=== PATIENT | male | born 1940 | race Hispanic/Latino ===

== ENCOUNTER 2020-03-08 06:09 | Day surgery (SDC) | payer OTHER ==
[2020-03-04 12:26] LABS: Absolute Lymphocytes (CBC) 1.5 K/uL (0.7-4.9); Basophils % 0.5 % (0-1.3); Hematocrit 35.6 % (39.6-49.0); Lymphocytes % 17.9 % (15.3-44.8); MPV 8.6 fL (7.6-11.3)
--- NOTE | 2020-03-04 12:28 | RAD REPORT ---
EXAM DESCRIPTION: RAD - Chest Pa And Lat (2 Views) - 03/04/2020 12:18 pm CLINICAL HISTORY: pre op Chest pain. COMPARISON: Chest Single View dated 12/25/2016; CHEST PA AND LAT 2 VIEW dated 07/03/2011; CHEST PA AND L AT 2 VIEW dated 01/01/2006 FINDINGS: The lungs are clear. The heart is mildly enlarged in size. No displaced fractures.
[2020-03-04 12:36] LABS: Protime INR 1.02
[2020-03-04 12:38] LABS: Potassium 3.3 mmol/L (3.5-5.1)
--- NOTE | 2020-03-06 11:15 | EKG ---
Test Date: 2020-03-04 Test Time: 11:55:26 Centrifuge Separator Tender: DENA MEASUREMENT RESULTS: Intervals: Rate: 63 MT: 194 QRSD: 150 QT: 504 QTc: 515 Iola: P: 63 MT: 194 QRS: 74 T: 51 INTERPRETIVE STATEMENTS: Sinus rhythm with frequent and consecutive premature ventricular complexes Left bundle branch block Abnormal ECG Compared to ECG 12/25/2016 08:53:06 Ventricular premature complex(es) now present Atrial premature complex(es) no longer present Electronically Signed On 03-06-20 11:13:44 CDT by Compa Dan
--- OUTSIDE RECORDS SUMMARY | 2020-03-08 06:22 | XMS REPORT | Continuity of Care Document ---
:1940 Author Organization [facility] t Address [address] [place] [address] Care Team Providers Name Role Phone SUNIL Attending Clinician Unavailable SUNIL Admitting Clinician Unavailable Problems Condition Condition Condition Status Onset Resolution Last Treating Co mments Source Name Details Category Date Date Treatment Clinician Date Stroke Stroke Disease Active [facility] [place] Carotid Carotid Disease Active [facility] artery artery 12-28[facility] - disease disease 00:00: [facility] Pre-diabet Pre-diabet Disease Active [facility] es 12[facility]28 - 00[facility] [place] Hypothyroi Hypothyroi Disease Active [facility] d d 12-28 - 00:00: Medical 00 Center Hypertensi Hypertensi Disease Active [facility] on on 12-[facility] - 00:[facility]: [facility] [place] Dyslipidem Dyslipidem Disease Active [facility] ia ia 12-[facility] - [facility] Right Right Disease Active [facility] sided sided 12-25 - weakness weakness 00:00: Medica l 00 Center TIA TIA Disease Active [facility] (transient (transient 12-25 Kristina kes - ischemic ischemic 00:00: Medica l attack) attack) 00 Center Cerebrovas Cerebrovas Disease Active [facility] cular cular 12-25 [facility] - accident accident 00:00: Medica l (CVA) due (CVA) due 00 Cent er to to thrombosis thrombosis of left of left carotid carotid artery artery Mixed Mixed Diagnosis Active [facility] hyperlipid hyperlipid Kristina kes - emia emia Memoria l Outpati ent Clinics HTN, goal HTN, goal Diagnosis Active [facility] below below [facility] Carotid Carotid Diagnosis Active [facility] occlusion, occlusion, Kristina kes - bilateral bilateral Bong nick l [facility] ent Clinics Acquired Acquired Diagnosis Active [facility] hypothyroi hypothyroi Kristina kes - dism dism [facility] ent Clinics History of History of Diagnosis Active [facility] CVA CVA [facility] - (cerebrova (cerebrova Me moria scular scular l accident) accident) Outp ati without without ent residual residual Clinic s deficits deficits Coronary Coronary Diagnosis Active [facility] artery artery [facility] - disease disease [facility] involving involving [place] [facility] coronary coronary ent artery of artery of Clin ics [place] heart heart without without angina angina pectoris pectoris Asymptomat Asymptomat Problem Active [facility] ic ic [facility] - hypertensi hypertensi Me moria ve urgency ve urgency l [facility] ent Clinics Body mass Body mass Diagnosis Active [facility] index index [facility] - (BMI) (BMI) Memoria 34.0-34.9, 34.0-34.9, l adult adult [facility] ent Clinics Iron Iron Diagnosis Active [facility] deficiency deficiency Kristina kes - anemia, anemia, Memoria unspecifie unspecifie l d iron d iron [facility] deficiency deficiency en t anemia anemia Clinics type type Other Other Diagnosis Active [facility] obesity obesity [facility] - due to due to Memoria excess excess l calories calories Outpat i ent Clinics Noncomplia Noncomplia Diagnosis Active [facility] nce nce [facility] - w/medicati w/medicati Me moria on on l treatment treatment Outp ati due to due to ent intermit intermit Clinic s use of use of medication medication Allergies, Adverse Reactions, Alerts This patient has no known allergies or adverse reactions. Social History Social Habit Start Date Stop Date Quantity Comments Source Sex Assigned At [facility] Ace[facility] andres - [facility] Tobacco use and 2016-12-25 2016-12-25 Never used KALLIE Carbajal - exposure 00:00:00 00:00:00 Medical Center Alcohol intake 2016-12-25 2016-12-25 Current drinker KALLIE Barbosa - 00:00:00 00:00:00 of alcohol [facility] Alcohol Comment 2016-12-25 2016-12-25 one beer every [facility] - [facility]:00 00:00:00 other weekend Medical Jaylene ter Smoking Status Start Date Stop Date Source Never sm[facility] Medications Ordered Filled Start Stop Current Ordering Indication Dosage Frequency Signature Comments Components Source Medication Medication Date Date Medication? Clinician (SIG) Name Name Levothyroxi Levothyroxi Yes Manuel [address] [facility] ne Sodium ne Sodium 01-26 [place] in the Kristina kes - 00:00: morning on an empty l stomach [facility] clopidogrel Yes 75mg QD Take [address] [address] (PLAVIX) 75 804 by mouth Luke s - mg tablet 18:00: daily. Medica l [place] amLODIPine Yes hypertensio 10mg QD Take [address] [address] (NORVASC) 8-04 n by mouth [facility] - 10 MG 18:00: daily. Medical tablet [place] atorvastati Yes hyperlipide 40mg QD Take [address] [facility] n (LIPITOR) 8-04 lizeth by mouth Luke s - 40 MG 18:00: daily. Medical tablet [place] lisinopril Yes hypertensio 40mg QD Take [address] (PRINIVIL,Z 8-04 n by mouth Luke s - ESTRIL) 40 18:00: daily. Medic al MG tablet [place] Valsartan Valsartan Yes Manuel [address] [facility] [address] [place] [facility] - [facility] Clopidogrel Clopidogrel Yes Manuel [address] [facility] [address] Bisulfate Bisulfate [place] [facility] - [facility] Atorvastati Atorvastati Yes Manuel [address] [facility] n Calcium n Calcium [place] Luke [facility] - [facility] Metoprolol Metoprolol Yes Manuel [address] [address] Succinate Succinate [place] Luke s - ER ER [facility]oria [facility] Amlodipine Amlodipine Yes Manuel [address] [facility] [address] Besylate Besylate [place] [facility] - [facility] - Yes Manuel [address] [place] [facility] - [facility] Amlodipine Amlodipine Yes Manuel [address] [facility] Besylate Besylate [place] [facility] - [facility] Hydrochloro Hydrochloro Yes Manuel [address] [facility] thiazide thiazide [place] in the Luke s - morning [facility] Losartan Losartan Yes Manuel [address] Potassium Potassium Pel[place]o [facility]y s [facility] Immunizations Ordered Filled Immunization Date Status Comments Sourc e Immunization Name Name Yaya Javier 2018-07-[address] [facility] - 00:[facility]00 [facility] Procedures This patient has no known procedures. Encounters Start End Encounter Admission Attending Care Care Encounter Source Date/Time Date/Time Type Type Clinicians Facility Department ID 2020-01-27 2020-01-27 [facility] [id number] [facility] [address] 08:40[facility]00 08:40:00 t Ule s - Drive [facility] Medicine l Medicine Outpati ent Clinics 2019-10-27 2019-10-27 [facility] [id number] [address] 16:00:00 16:00:00 [employer] [facility] Medicine l Medicine Outpati ent Clinics 2019-10-27 2019-10-27 [facility] [id number] 08:15:00 08:15:00 t Ule s - [employer] [facility] Family Medicine l Medicine Outpati ent Clinics 2019-07-27 2019-07-27 [facility] [id number] 08:45:00 08:45:00 t [employer] [facility] Medicine l Medicine Outpati ent Clinics 2019-04-09 2019-04-09 [facility] [id number] 09:30:00 09:30:00 [employer] [facility] Medicine l Medicine Outpati ent Clinics 2018-12-08 2018-12-08 [facility] [id number] 09:30:00 09:30:00 t Ule [employer] [facility] Medicine l Medicine Outpati ent Clinics 2018-07-28 2018-07-28 [facility] [id number] 09:45:00 09:45:00 t [employer] [facility] Medicine Medicine Outpati ent Clinics Results Test Description Test Time Test Comments Results Result Comments Source HEMOGLOBIN A1C 2016-12-27 21:46:00 Test Item Value Reference Range Interpretation Comme nts HEMOGLOBIN A1C (BEAKER) (test code = 368) 7.2 % 4.3-6.1 H T4, [id number] 13:56:00 Test Item Value Reference Range Interpretation Comments FREE T4 (BEAKER) (test code = 655) 0.77 ng/dL 0.70-1.48 TSH/FREE T4 IF [id number] 07:57:00 Test Item Value Reference Range Interpretation Comments THYROID STIMULATING HORMONE 7.16 uIU/mL 0.35-4.94 H (BEAKER) (test code = 772) CBC W/PLT COUNT & AUTO [id number] 07:33:00 Test Item Value Reference Range Interpretation Comments WHITE BLOOD CELL COUNT (BEAKER) 6.5 K/ L 3.5-10.5 (test code = 775) RED BLOOD CELL COUNT (BEAKER) 5.15 M/ L 4.63-6.08 (test code = 761) HEMOGLOBIN (BEAKER) (test code = 14.1 GM/DL 13.7-17.5 410) HEMATOCRIT (BEAKER) (test code = 43.1 % 40.1-51.0 411) MEAN CORPUSCULAR VOLUME (BEAKER) 83.7 fL 79.0-92.2 (test code = 753) MEAN CORPUSCULAR HEMOGLOBIN 27.4 pg 25.7-32.2 (BEAKER) (test code = 751) MEAN CORPUSCULAR HEMOGLOBIN CONC 32.7 GM/DL 32.3-36.5 (BEAKER) (test code = 752) RED CELL DISTRIBUTION WIDTH 14.8 % 11.6-14.4 H (BEAKER) (test code = 412) PLATELET COUNT (BEAKER) (test 250 K/CU MM 150-450 code = 756) MEAN PLATELET VOLUME (BEAKER) 10.8 fL 9.4-12.4 (test code = 754) NUCLEATED RED BLOOD CELLS 0 /100 WBC 0-0 (BEAKER) (test code = 413) NEUTROPHILS RELATIVE PERCENT 59 % (BEAKER) (test code = 429) LYMPHOCYTES RELATIVE PERCENT 23 % (BEAKER) (test code = 430) MONOCYTES RELATIVE PERCENT 12 % (BEAKER) (test code = 431) EOSINOPHILS RELATIVE PERCENT 4 % (BEAKER) (test code = 432) BASOPHILS RELATIVE PERCENT 1 % (BEAKER) (test code = 437) NEUTROPHILS ABSOLUTE COUNT 3.85 K/ L 1.78-5.38 (BEAKER) (test code = 670) LYMPHOCYTES ABSOLUTE COUNT 1.52 K/ L 1.32-3.57 (BEAKER) (test code = 414) MONOCYTES ABSOLUTE COUNT (BEAKER) 0.80 K/ L 0.30-0.82 (test code = 415) EOSINOPHILS ABSOLUTE COUNT 0.26 K/ L 0.04-0.54 (BEAKER) (test code = 416) BASOPHILS ABSOLUTE COUNT (BEAKER) 0.04 K/ L 0.01-0.08 (test code = 417) IMMATURE GRANULOCYTES-RELATIVE 0 % 0-1 PERCENT (BEAKER) (test code = 2801) BASIC METABOLIC [id number] 07:28:00 Test Item Value Reference Range Interpretation Comments SODIUM (BEAKER) 140 meq/L 136-145 (test code = 381) POTASSIUM (BEAKER) 3.7 meq/L 3.5-5.1 (test code = 379) CHLORIDE (BEAKER) 106 meq/L 98-107 (test code = 382) CO2 (BEAKER) (test 25 meq/L 22-29 code = 355) BLOOD UREA NITROGEN 11 mg/dL 7-21 (BEAKER) (test code = 354) CREATININE (BEAKER) 0.76 mg/dL 0.57-1.25 (test code = 358) GLUCOSE RANDOM 118 mg/dL 70-105 H (BEAKER) (test code = 652) CALCIUM (BEAKER) 8.9 mg/dL 8.4-10.2 (test code = 697) EGFR (BEAKER) (test mL/min/1.73 INSUFFIC IENT CLINICAL code = 1092) sq m DATA TO CALCULA TE ESTIMATED GFR. [id number] 07:19:00 Test Item Value Reference Range Interpretation Comments PHOSPHORUS (BEAKER) (test code = 2.4 mg/dL 2.3-4.7 604) [id number] 07:19:00 Test Item Value Reference Range Interpretation Comments MAGNESIUM (BEAKER) (test code = 2.1 mg/dL 1.6-2.6 627) LIPID [id number] 07:19:00 Test Item Value Reference Range Interpretation Comments TRIGLYCERIDES (BEAKER) (test code = 173 mg/dL 540) CHOLESTEROL (BEAKER) (test code = 115 mg/dL 631) HDL CHOLESTEROL (BEAKER) (test code 35 mg/dL = 976) LDL CHOLESTEROL CALCULATED (BEAKER) 45 mg/dL (test code = 633) Triglyceride Reference Range: Low Risk <150 Borderline 150-199 High Risk 200-499 Very High Risk >=500Cholesterol Reference Range: Low Risk <200 Borderline 200-239 High Risk >240HDL Cholesterol Reference Range: Low Risk >=60 High Risk <40LDL Cholesterol Reference Range: Optimal <100 Near Optimal 100-129 Borderline 130-159 High 160-189 Very High >=190CALCIUM, [id number] 06:36:00 Test Item Value Reference Range Interpretation Comments CALCIUM IONIZED (BEAKER) (test 1.02 mmol/L 1.12-1.27 L code = 698) PH, BLOOD (BEAKER) (test code = 7.43 1810) CREATINE KINASE (CK), TOTAL AND [id number] 00:37:00 Test Item Value Reference Range Interpretation Comments CREATINE KINASE TOTAL (BEAKER) 180 U/L 29-200 (test code = 380) CREATINE KINASE-MB (BEAKER) (test 1.9 ng/mL 0.0-6.6 code = 750) CREATINE KINASE-MB INDEX (BEAKER) 1.1 % (test code = 395) Effective 04/13/2014: CK-MB Reference Range ChangeNew: 0.0-6.6 Previous: 0.0-4.9CK-MB Reference Range:<6.7 Normal6.7-10.0 Borderline>10.0 AbnormalCREATINE KINASE (CK), TOTAL AND [id number] 15:57:00 Test Item Value Reference Range Interpretation Comments CREATINE KINASE TOTAL (BEAKER) 183 U/L 29-200 (test code = 380) CREATINE KINASE-MB (BEAKER) (test 2.0 ng/mL 0.0-6.6 code = 750) CREATINE KINASE-MB INDEX (BEAKER) 1.1 % (test code = 395) Effective 04/13/2014: CK-MB Reference Range ChangeNew: 0.0-6.6 Previous: 0.0-4.9CK-MB Reference Range:<6.7 Normal6.7-10.0 Borderline>10.0 Abnormal
--- OUTSIDE RECORDS SUMMARY | 2020-03-08 06:22 | XMS REPORT | Clinical Summary ---
:1940 Author Organization [facility] Address [address] [place] [address] Care Team Providers Name Role Phone Unavailable Primary Care Provider Unavailable Allergies No Known Allergies Medications Medication Sig Dispensed Refills Start Date End Date Status clopidogrel (PLAVIX) 75 Take 75 mg by 0 Active mg tablet mouth daily. amLODIPine (NORVASC) 10 Take 10 mg by 0 Active MG tabletIndications: mouth daily. hypertension atorvastatin (LIPITOR) 40 Take 40 mg by 0 Active MG tabletIndications: mouth daily. hyperlipidemia lisinopril Take 40 mg by 0 Activ e (PRINIVIL,ZESTRIL) 40 MG mouth daily. tabletIndications: hypertension Active Problems Problem Noted Date Stroke 12/28/2016 Carotid artery disease 12/28/2016 Pre-diabetes 12/28/2016 Hypothyroid 12/28/2016 Hypertension 12/25/2016 Dyslipidemia 12/25/2016 Right sided weakness 12/25/2016 TIA (transient ischemic attack) 12/25/2016 Cerebrovascular accident (CVA) due to thrombosis of le ft carotid artery 12/25/2016 Social History Tobacco Use Types Packs/Day Years Used Date Never Smoker Smokeless Tobacco: Never Used Alcohol Use Drinks/Week oz/Week Comments Yes one beer every o ther weekend Sex Assigned at Date Recorded Not on file Last Filed Vital Signs Not on file Plan of Treatment Not on file Results Not on fileafter 03/08/2019 Advance Directives For more information, please contact: [phone] Code Status Date Activated Date Inactivated Comments Full Code 12/25/2016 1:46 PM 12/28/2016 8:00 PM This code status was determined by: Patient
--- OUTSIDE RECORDS SUMMARY | 2020-03-08 06:23 | XMS REPORT ---
:1940 Author Organization [employer] Care Team Providers Name Role Phone Chris Pelayoh Provider Role Unavailable Allergies, Adverse Reactions, Alerts Substance Reaction Event Type N.K.D.A. Info Not Available Non Drug Allergy Problems Problem Type Condition Code Onset Dates Condition Statu s Problem History of CVA (cerebrovascular Z86.73 Active accident) without residual deficits Problem Coronary artery disease involving I25.10 Active alutiiq coronary artery of alutiiq heart without angina pectoris Problem Mixed hyperlipidemia E78.2 Active Problem Body mass index (BMI) 34.0-34.9, Z68.34 Active adult Assessment Noncompliance w/medication treatment Z91.14 Active due to intermit use of medication Problem Iron deficiency anemia, unspecified D50.9 Active iron deficiency anemia type Problem Other obesity due to excess calories E66.09 Active Problem HTN, goal below 140/90 I10 Activ e Problem Asymptomatic hypertensive urgency I16.0 Active Problem Subclinical hypothyroidism E03.9 A ctive Problem Carotid occlusion, bilateral I65.23 Active Assessment Iron deficiency anemia, unspecified D50.9 Active iron deficiency anemia type Assessment History of CVA (cerebrovascular Z86.73 Active accident) without residual deficits Assessment Body mass index (BMI) 34.0-34.9, Z68.34 Active adult Assessment Other obesity due to excess calories E66.09 Active Assessment Acquired hypothyroidism E03.9 Acti ve Assessment Mixed hyperlipidemia E78.2 Active Assessment Carotid occlusion, bilateral I65.23 Active Assessment HTN, goal below 140/90 I10 Activ e Assessment Coronary artery disease involving I25.10 Active alutiiq coronary artery of alutiiq heart without angina pectoris Medications Medication Code Code Instructions Start End Status Dosage System Date Date Clopidogrel Bisulfate ND 81736677367 75 MG Orally A ctive 1 tablet Once a day Atorvastatin Calcium ND 45926632902 40 MG Orally Ac tive 1 tablet Once a day Metoprolol Succinate ND 16143620104 200 MG Orally A ctive 1 tablet ER Once a day Levothyroxine Sodium ND 75185211900 25 MCG Orally Sept A ctive 1 tablet Once a day , in the 2019 morning on an empty stomach Amlodipine Besylate [facility] 21438744138 10 MG Orally Act laura 1 tablet Once a day Aspir-81 [facility] 97844451477 81 MG Orally Active 1 tabl et Once a day Amlodipine Besylate [facility] 09464183360 10 MG Orally Act laura 1 tablet Once a day Valsartan [facility] 15080558230 160 MG Orally Inactive 2 Once a day tablets Hydrochlorothiazide [facility] 83017680400 12.5 MG Orally A ctive 1 tablet Once a day in the morning Losartan Potassium [facility] 75399997688 100 MG Orally Act laura 1 tablet Once a day Results No Known Results Summary Purpose [employer]ClinicalWorks Submission
[2020-03-08] MEDS ORDERED: HEPA 1000U/500MLS 1,000 UNIT/500 ML BAG IV ONE (06:52)
[2020-03-08] MEDS ORDERED: LIDOCAINE 1% 20 ML MDV ONE (06:52)
[2020-03-08] MEDS ORDERED: NA CHLORIDE 0.9% 500 ML ONE (07:05)
[2020-03-08] MEDS ORDERED: FENTANYL CITR 100 MCG/2 ML ONE (07:43)
[2020-03-08] MEDS ORDERED: MIDAZOLAM HCL 2 MG/2 ML INJ ONE ×3 (07:43→08:01)
[2020-03-08 08:45] VITALS: TEMP 97
[2020-03-08 09:50] VITALS: BP 141/56; O2SAT 97
--- NOTE | 2020-03-10 13:23 | OP ---
Surgeon: Compa Dan MD Back Pad Inspector: Jammie Zepeda. Procedure: Selective bilateral carotid angiogram. Indication: Cerebrovascular disease with positive carotid Doppler. History Of Present Illness: Mr. Torres is an 80-year-old [place] male with history of hypertens ion, diabetes, dyslipidemia, positive carotid Doppler severe on the right side, scheduled for carotid angiogram on 03/08/2020. Description Of Procedure: He was brought to the manager labor delivery as an outpatient, prepped and draped in the routine sterile fashion, given Versed for sedation. Using the Seldinger technique, we used 10 cc of Xylocaine to numb the right groin. A 6-Kazakh sheath was introduced there successfully. Angio-Seal was used to close the case since angiography in that region was normal. A JR4 catheter was used to select the right common carotid and the left common carotid. The patient had some mild stenosis on t he left side in the external and internal carotid artery. Both common carotid arteries were normal. On the right carotid, he had a very severe ostial right ICA stenosis about 80% to 90%. The patient tolerated the procedure well. There were no complications. Anesthesia: Total conscious sedation was 30 minutes. Final Diagnoses: Severe cerebrovascular disease, severe right carotid artery stenosis, he will need a carotid endarterectomy. I will make an arrangement for that. The case was discussed with the adelfo sharma and the patient. The patient will remain bedrest in the hospital for 2 hours. He will go home and have an outpatient visit with a vascular surgeon in [place] in the near [facility]. ROBERT/VIDYA Voice ID: [id number] Report ID: [id number]
== END 2020-03-08 10:20 | disposition home or self-care (01) ==
LOC: CCL 06:09
DX: I65.23 Occlusion and stenosis of bilateral carotid arteries (principal); I10 Essential (primary) hypertension; E11.9 Type 2 diabetes mellitus without complications; E78.5 Hyperlipidemia, unspecified; Z20.828 Contact with and (suspected) exposure to other viral communicable diseases
CPT/HCPCS: 93005; 85025; 80048; 36415; 85610; 85730; 71046; 36222; U0002; C1893; C1760; J2250 ×3; J3010; J7040; J1644

== ENCOUNTER 2021-04-30 13:08 | Inpatient (IN) | payer OTHER ==
--- OUTSIDE RECORDS SUMMARY | 2021-04-30 13:12 | XMS REPORT | Continuity of Care Document ---
:1940 Author Organization [facility] t Address [facility] [address] [place] [address] Care Team Providers Name Role Phone TIFFANIE WATT Attending Clinician Unavailable SUNIL Attending Clinician Unavailable MAUREEN WATT Admitting Clinician Unavailable SUNIL Admitting Clinician Unavailable Payers Payer Name Policy Type Policy Number Effective Date Expiration Date S ele MEDICARE A B [id number] 2003 00:00:00 MEDICAID OF [place] [id number] 2016 00:00:00 Problems This patient has no known problems. Allergies, Adverse Reactions, Alerts Allergy Allergy Status Severity Reaction(s) Onset Inactive Treating Comm ents Source Name Type Date Date Clinician NO KNOWN Allergy Active [facility] ALL[facility]GIE S Medications Ordered Filled Start Stop Current Ordering Indication Dosage Frequency Signature Comments Components Source Medication Medication Date Date Medication? Clinician (SIG) Name Name Levothyroxi Levothyroxi Yes Manuel [address] [facility] ne Sodium ne Sodium 9-02 [place] in the Kristina kes - 00:00: morning on [facility] 00 an empty l stomach Outpati ent Clinics Valsartan Valsartan Yes Manuel [address] [facility] Clopidogrel Clopidogrel Yes Manuel [address] [facility] Bisulfate Bisulfate [place] Atorvastati Atorvastati Yes Manuel [address] [facility] n Calcium n Calcium [place] Metoprolol Metoprolol Yes Manuel [address] [facility] Succinate Succinate [place] [facility] ent Clinics Amlodipine Amlodipine Yes Manuel [address] [facility] Besylate Besylate [place] Clinics Aspir-81 Aspir-81 Yes Manuel [address] [place] [facility] ent [facility] Amlodipine Amlodipine Yes Manuel [address] [facility] Besylate Besylate [place] [facility] Hydrochloro Hydrochloro Yes Manuel [address] [facility] thiazide thiazide [place] [facility] Losartan Losartan Yes Manuel [address] Potassium Potassium [place] [facility] ent Clinics Immunizations Ordered Filled Immunization Date Status Comments Sour e Immunization Name Name FluAD FluAD 2018-07-[address] [facility]00 [facility] Vital Signs Vital Name Observation Time Observation Value Comments Source HEIGHT 2020-03-16 08:04:00 167.6 cm WEIGHT 2020-03-16 08:04:00 88.587 kg HEIGHT 2020-03-15 10:51:00 167.6 cm WEIGHT 2020-03-15 10:51:00 90.266 kg HEIGHT 2020-03-31 13:18:00 167.6 cm WEIGHT 2020-03-31 13:18:00 91.173 kg HEIGHT 2020-03-16 08:04:00 167.6 cm WEIGHT 2020-03-16 08:04:00 88.587 kg HEIGHT 2020-03-15 10:51:00 167.6 cm WEIGHT 2020-03-15 10:51:00 90.266 kg HEIGHT 2020-03-14 08:37:00 167.6 cm WEIGHT 2020-03-14 08:37:00 90.266 kg HEIGHT 2020-03-14 08:37:00 167.6 cm WEIGHT 2020-03-14 08:37:00 90.266 kg Procedures This patient has no known procedures. Encounters Start End Encounter Admission Attending Care Care Encounter Source Date/Time Date/Time Type Type Clinicians Facility Department ID 2021-03-01 Inpatient [facility] [id number] [facility] 10:47:23 TIFFANIE 2021-04-27 2021-04-27 ambulatory [facility] [id number] [facility] 2020-12-27 2020-12-27 Outpatient [facility] [id number] [facility] 2020-09-27 2020-09-27 Outpatient [facility] [id number] [facility] 2020-06-30 2020-06-30 Outpatient [facility] [id number] [facility] 2020-06-30 2020-06-30 Outpatient [facility] [id number] [facility] 2020-06-06 2020-06-06 Outpatient [facility] [id number] [facility] 2020-04-04 2020-04-04 Outpatient [facility] [id number] [facility] 2020-04-01 2020-04-01 Outpatient [facility] [id number] [facility] 2020-03-31 2020-03-31 Outpatient EL BRAD, [facility] [id number] [facility] 00:00:00 00:00:00 TIFFANIE 2020-03-23 2020-03-23 Outpatient [facility] [id number] [facility] 2020-03-15 2020-03-15 Outpatient EL [facility] [id number] [facility] 00:00:00 00:00:00 2020-03-14 2020-03-14 Outpatient EL BRAD, [facility] [id number] [facility] 00:00:00 00:00:00 TIFFANIE 2020-03-14 2020-03-14 Outpatient [facility], [facility] [id number] [facility] 00:00:00 00:00:00 TIFFANIE 2020-03-11 2020-03-11 Outpatient EL CAROL [facility] [id number] [facility] 00:00:00 00:00:00 [facility] 2020-01-27 2020-01-27 [facility] [id number] 08:40:00 08:40:00 [facility] 2019-10-27 2019-10-27 [facility] [id number] [facility] 16:00:00 16:00:00 [facility] 2019-10-27 2019-10-27 [facility] [id number] [facility] 08:15:00 08:15:00 t [facility] 2019-07-27 2019-07-27 [facility] [id number] [facility] 08[facility]45:00 08:45:00 t [facility] 2019-04-09 2019-04-09 [facility] [id number] [facility] 09:30:00 09:30:00 t [facility] 2018-12-08 2018-12-08 [facility] [id number] [facility] [address] 09:30:00 09:30:00 t [facility] 2018-07-28 2018-07-28 [facility] [id number] [facility] 09:45:00 09:45:00 t [facility] [employer] [facility] Results Test Description Test Time Test Comments Results Result Sour e Comments TISSUE EXAM 2020-03-21 Surgical Pathology 14:09:00 Report Case: [id number] Authorizing Provider: Tiffanie Watt MD Collected: 03/16/2020 12:32 PM Ordering Location: [facility] Received: 03/16/2020 01:28 PM PERIOPERATIVE SERVICES Pathologist: Chetan Francis MD Specimen: Plaque, Carotid Artery Plaque ARTERY, RIGHT CAROTID, ENDARTERECTOMY:CALCIFI C ATHEROSCLEROTIC PLAQUE Signing Pathologist Direct Phone Line: [phone] ally signed by Chetan Francis MD on 03/21/2020 at 2:09 [id number]; [id number] stenosis, rightCarotid artery plaqueA. Received fresh labeled with the patient's name, medical record number and "plaque" is a previously incised tubular portion of yellow-kilpatrick plaque measuring 3.5 cm in length and ranging 0.6-0.8 cm in diameter. The specimen is serially sectioned to reveal calcifications measuring up to 0.3 cm in thickness. Bariatric Physician sections are submitted in A1, following decalcification.ALLAN Jackson PA ([facility])cmPerformed POCT-GLUCOSE METER 2020-03-17 12:05:00 Test Item Value Reference Range Interpretation Comme nts POC-GLUCOSE METER (BEAKER) 135 mg/dL 70-110 H : TESTED AT [address] (test code = 1538) [place] [id number]: Flavoring Machine Operator/Techni juliano ID = [id number] for ABDIAS FAULKNER BASIC METABOLIC [id number] 07:45:00 Test Item Value Reference Range Interpretation Comments SODIUM (BEAKER) (test 140 meq/L 136-145 code = 381) POTASSIUM (BEAKER) 3.9 meq/L 3.5-5.1 (test code = 379) CHLORIDE (BEAKER) 106 meq/L 98-107 (test code = 382) CO2 (BEAKER) (test 24 meq/L 22-29 code = 355) BLOOD UREA NITROGEN 18 mg/dL 7-21 (BEAKER) (test code = 354) CREATININE (BEAKER) 0.98 mg/dL 0.57-1.25 (test code = 358) GLUCOSE RANDOM 133 mg/dL 70-105 H (BEAKER) (test code = 652) CALCIUM (BEAKER) 8.8 mg/dL 8.4-10.2 (test code = 697) EGFR (BEAKER) (test INSUFFIC IENT CLINICAL code = 1092) DATA TO CALCULA TE ESTIMATED GFR. Flavoring Machine Operator ID - AAHAMIDPOCT-GLUCOSE [id number] 07:32:00 Test Item Value Reference Range Interpretation Comments POC-GLUCOSE METER 171 mg/dL 70-110 H : TESTED A T [facility] [address] (BEAKER) (test code = [place], 1538) [address]: Flavoring Machine Operator/Techni juliano ID = [id number] for ABDIAS PENNY [id number] 13:42:00 Test Item Value Reference Range Interpretation Comments CREATININE (BEAKER) 0.99 mg/dL 0.57-1.25 (test code = 358) EGFR (BEAKER) (test INSUFFIC IENT CLINICAL code = 1092) DATA TO CALCULA TE ESTIMATED GFR. Flavoring Machine Operator ID - JESSICA [id number] 13:40:00 Test Item Value Reference Range Interpretation Comments SODIUM (BEAKER) (test code = 381) 142 meq/L 136-145 POTASSIUM (BEAKER) (test code = 3.4 meq/L 3.5-5.1 L 379) CHLORIDE (BEAKER) (test code = 382) 111 meq/L 98-107 H CO2 (BEAKER) (test code = 355) 22 meq/L 22-29 Flavoring Machine Operator ID - JESSICA CCBC (HEMOGRAM ONLY)2020-03-16 13:22:00 Test Item Value Reference Range Interpretation Comments WHITE BLOOD CELL COUNT (BEAKER) 10.5 K/ L 3.5-10.5 (test code = 775) RED BLOOD CELL COUNT (BEAKER) 3.44 M/ L 4.63-6.08 L (test code = 761) HEMOGLOBIN (BEAKER) (test code = 10.9 GM/DL 13.7-17.5 L 410) HEMATOCRIT (BEAKER) (test code = 32.4 % 40.1-51.0 L 411) MEAN CORPUSCULAR VOLUME (BEAKER) 94.2 fL 79.0-92.2 H (test code = 753) MEAN CORPUSCULAR HEMOGLOBIN 31.7 pg 25.7-32.2 (BEAKER) (test code = 751) MEAN CORPUSCULAR HEMOGLOBIN CONC 33.6 GM/DL 32.3-36.5 (BEAKER) (test code = 752) RED CELL DISTRIBUTION WIDTH 13.7 % 11.6-14.4 (BEAKER) (test code = 412) PLATELET COUNT (BEAKER) (test 227 K/CU MM 150-450 code = 756) MEAN PLATELET VOLUME (BEAKER) 10.2 fL 9.4-12.4 (test code = 754) NUCLEATED RED BLOOD CELLS 0 /100 WBC 0-0 (BEAKER) (test code = 413) POCT-GLUCOSE [id number] 08:14:00 Test Item Value Reference Range Interpretation Comments POC-GLUCOSE METER 138 mg/dL 70-110 H : TESTED A T [facility] 67[facility] ([facility] (test code [facility], = 1538) [address]: Flavoring Machine Operator/Techni juliano ID = [id number] for JORD AN, LACRYSTAL SARS-COV2/RT-PCR ([facility])2020-03-14 18:25:00 Test Item Value Reference Range Interpretation Comments SARS-COV2/RT-PCR (test Negative Not Detected, Negative, code = 4238267) See external report for linked test SARS-COV-2 PERFORMING LAB [facility] MASHA (test code = 0404860) Negative result for this test determines that SARS-CoV-2 RNA was not present in the specimen above the Limit of Detection (LOD). However, Negative results do not preclude SARS-CoV-2 infection and should not be used as the sole basis for treatment or patient management decisions. Negative results mustbe combined with clinical observations, patient history, and epidemiological information. A false negative result may occur if a specimen is improperly collected, transported or handled. A false negative result should be considered if patient's recent exposures or clinical presentation indicate that COVID-19 (SARS-CoV-2) is likely and diagnostic tests for other causes of illness are negative. Re-testing should be considered in cases of suspected false negatives.The limit of detection for this assay is 800 copies/mL.This SARS CoV-2 test is a real-time RT-PCR test intended for the qualitative detection of nucleic acid from SARS-CoV-2 in a nasopharyngeal swab specimen collected from individuals susp ected of COVID-19 by their healthcare provider.This test has not been Food and Drug Administration (FDA) cleared or approved. This is a modified version of an approved Emergency Use Authorization (EUA) and is in the process of review by the FDA. Once authorized by the FDA, the issued EUA will be effective until the declaration that circumstances exist justifying the authorization of the emergency use of in vitro diagnostic tests for detection and/or diagnosis of COVID-19 is terminated under Section 564(b)(2) of the Act or the EUA is revoked under Section 564(g) of the Act.Fact Sheet for Healthcare Providers:https://www.[employer]/sites/default/files/product/documents/Fact_Shee n_LL_Ycrdfmjtf_Tqxy_JZXR-PrY-6.pdfFact Sheet for Healthcare Patients:https://www.[employer]/sites/default/files/product/ documents/Bnyb_Xvyvu_Cimstyzp_Dfuo_IPWP-AyE-6.pdfPerforming Laboratory:[facility] [place], [place] [address]CHTXT METABOLIC PANEL 2020-03-14 12:12:00 Test Item Value Reference Range Interpretation Comments SODIUM (BEAKER) (test 138 meq/L 136-145 code = 381) POTASSIUM (BEAKER) 3.8 meq/L 3.5-5.1 (test code = 379) CHLORIDE (BEAKER) 103 meq/L 98-107 (test code = 382) CO2 (BEAKER) (test 24 meq/L 22-29 code = 355) BLOOD UREA NITROGEN 37 mg/dL 7-21 H (BEAKER) (test code = 354) CREATININE (BEAKER) 1.91 mg/dL 0.57-1.25 H (test code = 358) GLUCOSE RANDOM 118 mg/dL 70-105 H (BEAKER) (test code = 652) CALCIUM (BEAKER) 10.1 mg/dL 8.4-10.2 (test code = 697) EGFR (BEAKER) (test INSUFFIC IENT CLINICAL code = 1092) DATA TO CALCULA TE ESTIMATED GFR. Flavoring Machine Operator ID - [place] FPROTHROMBIN [id number] 12:05:00 Test Item Value Reference Range Interpretation Comments PROTIME (BEAKER) (test code = 14.0 seconds 11.9-14.2 759) INR (BEAKER) (test code = 370) 1.11 <=5.90 Effective 10/22/2018: PT Reference Range ChangeNew: 11.9-14.2 Previous: 11.7- 14.7RECOMMENDED COUMADIN/WARFARIN INR THERAPY RANGESSTANDARD DOSE: 2.0-3.0 Includes: PROPHYLAXIS for venous thrombosis, systemic embolization; TREATMENT for venous thrombosis and/or pulmonary embolus.HIGH RISK: Target INR is2.5-3.5 for patients wiht mechanical heart valves.CBC W/PLT COUNT & AUTO [id number] 11:49:00 Test Item Value Reference Range Interpretation Comments WHITE BLOOD CELL COUNT (BEAKER) 7.2 K/ L 3.5-10.5 (test code = 775) RED BLOOD CELL COUNT (BEAKER) 4.11 M/ L 4.63-6.08 L (test code = 761) HEMOGLOBIN (BEAKER) (test code = 12.9 GM/DL 13.7-17.5 L 410) HEMATOCRIT (BEAKER) (test code = 38.5 % 40.1-51.0 L 411) MEAN CORPUSCULAR VOLUME (BEAKER) 93.7 fL 79.0-92.2 H (test code = 753) MEAN CORPUSCULAR HEMOGLOBIN 31.4 pg 25.7-32.2 (BEAKER) (test code = 751) MEAN CORPUSCULAR HEMOGLOBIN CONC 33.5 GM/DL 32.3-36.5 (BEAKER) (test code = 752) RED CELL DISTRIBUTION WIDTH 14.0 % 11.6-14.4 (BEAKER) (test code = 412) PLATELET COUNT (BEAKER) (test 269 K/CU MM 150-450 code = 756) MEAN PLATELET VOLUME (BEAKER) 10.1 fL 9.4-12.4 (test code = 754) NUCLEATED RED BLOOD CELLS 0 /100 WBC 0-0 (BEAKER) (test code = 413) NEUTROPHILS RELATIVE PERCENT 66 % (BEAKER) (test code = 429) LYMPHOCYTES RELATIVE PERCENT 18 % (BEAKER) (test code = 430) MONOCYTES RELATIVE PERCENT 14 % (BEAKER) (test code = 431) EOSINOPHILS RELATIVE PERCENT 2 % (BEAKER) (test code = 432) BASOPHILS RELATIVE PERCENT 0 % (BEAKER) (test code = 437) NEUTROPHILS ABSOLUTE COUNT 4.72 K/ L 1.78-5.38 (BEAKER) (test code = 670) LYMPHOCYTES ABSOLUTE COUNT 1.27 K/ L 1.32-3.57 L (BEAKER) (test code = 414) MONOCYTES ABSOLUTE COUNT (BEAKER) 1.00 K/ L 0.30-0.82 H (test code = 415) EOSINOPHILS ABSOLUTE COUNT 0.16 K/ L 0.04-0.54 (BEAKER) (test code = 416) BASOPHILS ABSOLUTE COUNT (BEAKER) 0.01 K/ L 0.01-0.08 (test code = 417) IMMATURE GRANULOCYTES-RELATIVE 0 % 0-1 PERCENT (BEAKER) (test code = 2801) HEMOGLOBIN [id number] 21:46:00 Test Item Value Reference Range Interpretation Comments HEMOGLOBIN A1C (BEAKER) (test code = 7.2 % 4.3-6.1 H 368) T4, [id number] 13:56:00 Test Item Value Reference Range Interpretation Comments FREE T4 (BEAKER) (test code = 655) 0.77 ng/dL 0.70-1.48 TSH/FREE T4 IF [id number] 07:57:00 Test Item Value Reference Range Interpretation Comments THYROID STIMULATING HORMONE 7.16 uIU/mL 0.35-4.94 H (BEAKER) (test code = 772) CBC W/PLT COUNT & AUTO [id number] 07:33:00 Test Item Value Reference Range Interpretation [...] (BEAKER) (test code = 2801) BASIC METABOLIC [id number] 07:28:00 Test Item Value Reference Range Interpretation [...] m DATA TO CALCULA TE ESTIMATED GFR. [id number] 07:19:00 Test Item Value Reference Range Interpretation Comments PHOSPHORUS (BEAKER) (test code = 2.4 mg/dL 2.3-4.7 604) [id number] 07:19:00 Test Item Value Reference Range Interpretation Comments MAGNESIUM (BEAKER) (test code = 2.1 mg/dL 1.6-2.6 627) LIPID [id number] 07:19:00 Test Item Value Reference Range Interpretation [...] Borderline 130-159 High 160-189 Very High >=190CALCIUM, [id number] 06:36:00 Test Item Value Reference Range Interpretation Comments CALCIUM IONIZED (BEAKER) (test 1.02 mmol/L 1.12-1.27 L code = 698) PH, BLOOD (BEAKER) (test code = 7.43 1810) CREATINE KINASE (CK), TOTAL AND [id number] 00:37:00 Test Item Value Reference Range Interpretation Comments CREATINE KINASE TOTAL (BEAKER) 180 U/L 29-200 (test code = 380) CREATINE KINASE-MB (BEAKER) (test 1.9 ng/mL 0.0-6.6 code = 750) CREATINE KINASE-MB INDEX (BEAKER) 1.1 % (test code = 395) Effective 04/13/2014: CK-MB Reference Range ChangeNew: 0.0-6.6 Previous: 0.0-4.9CK-MB Reference Range:<6.7 Normal6.7-10.0 Borderline>10.0 AbnormalCREATINE KINASE (CK), TOTAL AND [id number] 15:57:00 Test Item Value Reference Range Interpretation Comments CREATINE KINASE TOTAL (BEAKER) 183 U/L 29-200 (test code = 380) CREATINE KINASE-MB (BEAKER) (test 2.0 ng/mL 0.0-6.6 code = 750) CREATINE KINASE-MB INDEX (BEAKER) 1.1 % (test code = 395) Effective 04/13/2014: CK-MB Reference Range ChangeNew: 0.0-6.6 Previous: 0.0-4.9CK-MB Reference Range:<6.7 Normal6.7-10.0 Borderline>10.0 Abnormal
[2021-04-30] MEDS ORDERED: LEVALBUTEROL 1.25 MG/3 ML NEB ONE (14:24)
[2021-04-30 14:29] LABS: Absolute Lymphocytes (CBC) 0.7 K/uL (0.7-4.9); Basophils % 0.8 % (0-1.3); Hematocrit 38.8 % (39.6-49.0); Lymphocytes % 8.9 % (15.3-44.8); MPV 8.2 fL (7.6-11.3); RBC Red Blood Cell Count 5.01 M/uL (4.33-5.43)
[2021-04-30 14:37] LABS: Protime INR 1.08
[2021-04-30 14:58] LABS: Albumin 3.6 g/dL (3.4-5.0); Bilirubin Direct 0.1 mg/dL (0-0.2); Bilirubin Total 0.4 mg/dL (0.2-1.0); Magnesium 2.1 mg/dL (1.8-2.4); Potassium 3.9 mmol/L (3.5-5.1); Protein, Total 8.6 g/dL (6.4-8.2); Troponin (Emerg Dept Use Only) 0.11 ng/mL (0.0-0.045)
[2021-04-30] MEDS ORDERED: FUROSEMIDE 40 MG/4 ML VIAL ONE (15:08)
[2021-04-30] MEDS ORDERED: HYDROCODONE/CHLORPHEN 5 ML/OSYR ONE (15:08)
[2021-04-30 15:31] LABS: SARS-COV-2 RT PCR NEGATIVE (NEGATIVE)
--- NOTE | 2021-04-30 15:46 | RAD REPORT ---
EXAM DESCRIPTION: RAD - Chest Single View - 04/30/2021 2:48 pm CLINICAL HISTORY: COUGH COMPARISON: February 2020 TECHNIQUE: AP portable chest image was obtained 04/30/2021 2:48 pm . FINDINGS: No focal mass or consolidation. Interstitial markings are prominent in part due to under p enetrated portable technique. Heart and vasculature are normal. No measurable pleural effusion and no pneumothorax. No acute bony abnormality seen. No acute aortic findings suspected. IMPRESSION: No focal mass or consolidation. Prominent interstitial pattern could be a mild edema or infiltrate.
--- NOTE | 2021-04-30 16:38 | ER ---
Nurse's Notes [facility] Name: Eddie Gunn Age: 81 yrs Sex: Male : 1940 Arrival Date: 04/30/2021 Time: 13:10 Bed 4 Private MD: Manuel Pelayo Diagnosis: Unspecified combined systolic (congestive) and diastolic (congestive) heart failure;Dyspnea, unspecified Presentation: 04/30 13:35 Chief complaint: Patient states: cough and wheezing that began after getting Flu ss vaccine on . Coronavirus screen: Client denies travel out of the [place] in the last 14 days. Ebola Screen: Patient denies exposure to infectious person. Patient denies travel to an Ebola-affected area in the 21 days before illness onset. Initial Sepsis Screen: Does the patient meet any 2 criteria? No. Patient's initial sepsis screen is negative. Does the patient have a suspected source of infection? No. Patient's initial sepsis screen is negative. Risk Assessment: Do you want to hurt yourself or someone else? Patient reports no desire to harm self or others. Onset of symptoms was April 27, 2021. 13:35 Method Of Arrival: Ambulatory ss 13:35 Acuity: LUIS 2 ss Triage Assessment: 20:51 General: Appears in no apparent distress. Respiratory: Onset: The symptoms/episode tw5 began/occurred at an unknown time. the patient has moderate shortness of breath. Historical: - Allergies: 13:37 No Known Allergies; ss - PMHx: 13:37 Carotid blockage; CVA; Hyperlipidemia; Hypertension; ss - PSHx: 18:32 hernia; iw - Immunization history:: Client reports receiving the 2nd dose of the Covid vaccine. - Social history:: Smoking status: Patient denies any tobacco usage or history of. - Family history:: not pertinent. - Hospitalizations: : No recent hospitalization is reported. Screenin:22 Abuse screen: Denies threats or abuse. Denies injuries from another. Nutritional jl7 screening: No deficits noted. Tuberculosis screening: No symptoms or risk factors identified. Fall Risk IV access (20 points). Total Vargas Fall Scale indicates No Risk (0-24 pts). Assessment: 14:15 General: Appears uncomfortable, Behavior is cooperative. Pain: Denies pain. Neuro: iw Level of Consciousness is awake, alert, obeys commands, Oriented to person, place, time, situation, Moves all extremities. Full function. Cardiovascular: Reports shortness of breath, Denies chest pain, Patient's skin is warm and dry. Respiratory: Reports cough that is productive, Airway is patent Respiratory effort is even, labored, Respiratory pattern is regular, symmetrical, Breath sounds with wheezes bilaterally. GI: Abdomen is non-distended. Derm: Skin is healthy with good turgor. Musculoskeletal: Range of motion: intact in all extremities. 14:45 Reassessment: Patient appears in no apparent distress at this time. Patient and/or iw family updated on plan of care and expected duration. Pain level reassessed. Patient is alert, oriented x 3, equal unlabored respirations, skin warm/dry/pink. pt receiving breathing tx at this time. 14:45 Pain: Denies pain. Respiratory: Airway is patent Respiratory effort is even, labored, iw Breath sounds with wheezes bilaterally. 15:15 Reassessment: pt medicated with cough medicine and lasix, urinal given, family at iw bedside, updated on POC, awaiting CXR results. 15:37 Cardiovascular: Rhythm is sinus rhythm. iw 17:26 Reassessment: Patient appears in no apparent distress at this time. Respiratory: iw Reports shortness of breath cough that is Respiratory effort is labored. 19:19 Reassessment: Patient and/or family updated on plan of care and expected duration. Pain as6 level reassessed. Patient is alert, oriented x 3, equal unlabored respirations, skin warm/dry/pink. pt has no complaints or concerns at this time, pt up in chair, family at bedside. Vital Signs: 13:37 BP 199 / 87; Pulse 78; Resp 32; Temp 98.5(O); Pulse Ox 94% on R/A; Weight 86.18 kg; ss Height 5 ft. 6 in. (167.64 cm); Pain 0/10; 15:36 BP 174 / 87; Pulse 77; Resp 22 S; Pulse Ox 97% on R/A; iw 13:37 Body Mass Index 30.67 (86.18 kg, 167.64 cm) ED Course: 13:10 Patient arrived in ED. as 13:11 Manuel Pelayo, is Private Physician. as 13:37 Triage completed. ss 13:37 Arm band placed on right wrist. ss 13:45 Chelsey Evans RN is Primary Nurse. jl7 13:45 Patient has correct armband on for positive identification. Placed in gown. Bed in low jl7 position. Call light in reach. Side rails up X 1. materials and corrosion engineer on. Pulse ox on. NIBP on. 13:51 Jann Redd MD is Attending Physician. rn 14:10 EKG done, by ED staff, reviewed by Jann Redd MD. jl7 14:21 Initial lab(s) drawn, by hi, sent to lab. Inserted saline lock: 20 gauge in left iw antecubital area, using aseptic technique. Blood collected. 14:39 COVID swab sent to lab. Flu and/or RSV swab sent to lab. lt3 14:48 XRAY CXR (1 view) In Process Unspecified. EDMS 16:37 Margy Dean MD is Hospitalizing Provider. rn 16:54 CT Chest For PE Angio In Process Unspecified. EDMS 17:27 Primary Nurse role handed off by Chelsey Evans RN iw 17:27 Jacqueline Moran, MIKE is Primary Nurse. iw 20:51 No provider procedures requiring assistance completed. Patient admitted, IV remains in tw5 place. Administered Medications: 14:38 Drug: Xopenex (levalbuterol) 1.25 mg Route: Inhalation; jl7 15:15 Drug: Tussionex Pennkinetic ER (chlorpheniramine-hydrocodone) Suspension 5 ml Route: PO;iw 16:15 Follow up: Response: No adverse reaction iw 15:15 Drug: Lasix (furosemide) 20 mg Route: IVP; Site: left antecubital; iw 15:45 Follow up: Response: No adverse reaction iw 18:10 Drug: Lasix (furosemide) 20 mg Route: IVP; Site: left antecubital; iw 18:30 Follow up: Response: No adverse reaction iw Outcome: 16:37 Decision to Hospitalize by Provider. rn 20:50 Admitted to Med/surg accompanied by alcon, room 402, with chart. tw5 20:50 Condition: good 20:50 Instructed on the need for admit. 20:51 Patient left the ED. tw5 Signatures: Dispatcher [employer] EDThais Gallegos as Jacqueline Moran, RN RN iw Jann Redd MD MD rn Smirch, Shelby, RN RN ss Chelsey Evans RN RN jl7 Tess Courtney tw5 Felix Manzanares RN RN as6 Anali Jha lt3 Corrections: (The following items were deleted from the chart) 13:40 13:35 Acuity: LUIS [facility] 15:55 14:10 Reassessment: madeline chavez
--- NOTE | 2021-04-30 16:38 | EDPHYS ---
Physician Documentation [facility] Name: Eddie Gunn Age: 81 yrs Sex: Male : 1940 Arrival Date: 04/30/2021 Time: 13:10 Bed 4 Private MD: Manuel Pelayo ED Physician Jann Redd HPI: 04/30 14:06 This 81 yrs old Male presents to ER via Ambulatory with complaints of Cough, rn Wheezing. 14:06 The patient or guardian reports cough, difficulty breathing. Onset: The rn symptoms/episode began/occurred 4 day(s) ago. Severity of symptoms: At their worst the symptoms were moderate, in the emergency department the symptoms are unchanged. Modifying factors: The symptoms are alleviated by nothing, the symptoms are aggravated by nothing. The patient has not experienced similar symptoms in the past. The patient has not recently seen a physician. Family and patient report 4 days of cough and difficulty breathing. Positive for chills and muscle aches. No trauma or fall. No history of DVT or PE. No chronic respiratory issues.. Historical: - Allergies: 13:37 No Known Allergies; ss - PMHx: 13:37 Carotid blockage; CVA; Hyperlipidemia; Hypertension; ss - PSHx: 18:32 hernia; iw - Immunization history:: Client reports receiving the 2nd dose of the Covid vaccine. - Social history:: Smoking status: Patient denies any tobacco usage or history of. - Family history:: not pertinent. - Hospitalizations: : No recent hospitalization is reported. ROS: 14:07 Constitutional: Positive chills and myalgias Eyes: Negative for injury, pain, redness, rn and discharge, Neck: Negative for injury, pain, and swelling, Cardiovascular: Negative for chest pain, palpitations, and edema, Respiratory: Positive for shortness of breath and cough Abdomen/GI: Negative for abdominal pain, nausea, vomiting, diarrhea, and constipation, Back: Negative for injury and pain, MS/Extremity: Negative for injury and deformity, Skin: Negative for injury, rash, and discoloration, Neuro: Positive for generalized weakness Exam: 14:07 Constitutional: This is a well developed, well nourished patient who is awake, alert, rn moderate tachypnea Head/Face: Normocephalic, atraumatic. Eyes: Periorbital areas with no swelling, redness, or edema. ENT: No stridor Cardiovascular: Regular rate and rhythm. No pulse deficits. Respiratory: Moderate tachypnea, frequent cough, audible wheezing Abdomen/GI: Soft, non-tender Skin: Warm, dry MS/ Extremity: Pulses equal, no cyanosis. Neuro: Awake and alert, GCS 15, oriented to person, place, time, and situation. Vital Signs: 13:37 BP 199 / 87; Pulse 78; Resp 32; Temp 98.5(O); Pulse Ox 94% on R/A; Weight 86.18 kg; ss Height 5 ft. 6 in. (167.64 cm); Pain 0/10; 15:36 BP 174 / 87; Pulse 77; Resp 22 S; Pulse Ox 97% on R/A; iw 13:37 Body Mass Index 30.67 (86.18 kg, 167.64 cm) ss MDM: 13:51 Patient medically screened. rn 16:35 Differential Diagnosis: Bronchitis Influenza Upper Respiratory Infection Viral Syndrome rn Pneumonia Other CHF, pulmonary edema, PE. Data reviewed: vital signs, nurses notes, lab test result(s), EKG, radiologic studies, plain films, and as a result, I will admit patient. Data interpreted: Pulse oximetry: on room air is 94 %. Interpretation: hypoxia. Plan: O2 by NC applied. Counseling: I had a detailed discussion with the patient and/or guardian regarding: the historical points, exam findings, and any diagnostic results supporting the discharge/admit diagnosis, lab results, radiology results, the need for further work-up and treatment in the hospital. Response to treatment: the patient's symptoms have mildly improved after treatment, and as a result, I will admit patient. Admission orders: after a detailed discussion of the patient's condition and case, the admit orders are written by me. ED course: Pt with elevated BNP and trop, no infection, afebrile, neg procal, will admit to Dr. Dean for further w/u. . 04/30 13:57 Order name: BMP rn 04/30 13:57 Order name: Blood Culture Adult (2) rn 04/30 13:57 Order name: CBC with Diff rn 04/30 13:57 Order name: Hepatic Function; Complete Time: 15:03 rn 04/30 13:57 Order name: Magnesium; Complete Time: 15:03 rn 12/05 13:57 Order name: NT PRO-BNP; Complete Time: 15:03 rn 05 13:57 Order name: PT-INR; Complete Time: 15:03 rn /05 13:57 Order name: Ptt, Activated; Complete Time: 15:03 rn /05 13:57 Order name: Troponin (emerg Dept Use Only); Complete Time: 15:03 rn 04/30 13:57 Order name: Procalcitonin; Complete Time: 15:32 rn 05 13:58 Order name: Basic Metabolic Panel; Complete Time: 15:03 EDMS 04/30 13:58 Order name: Blood Culture EDMS 04/30 13:57 Order name: XRAY CXR (1 view); Complete Time: 15:49 rn 04/30 13:57 Order name: EKG; Complete Time: 13:58 rn 05 13:57 Order name: Cardiac monitoring; Complete Time: 14:22 rn 05 13:57 Order name: EKG - Nurse/Tech; Complete Time: 14:21 rn 05 13:57 Order name: IV Saline Lock; Complete Time: 14:21 rn 05 13:57 Order name: Labs collected and sent; Complete Time: 14:21 rn 05 13:57 Order name: O2 Per Protocol; Complete Time: 14:21 rn 05 13:57 Order name: O2 Sat Monitoring; Complete Time: 14:21 rn 05 13:58 Order name: CBC with Automated Diff; Complete Time: 15:03 EDMS 05 14:49 Order name: COVID-19/FLU A+B; Complete Time: 15:32 EDMS 05 15:50 Order name: CT Chest For PE Angio; Complete Time: 18:03 rn Administered Medications: 14:38 Drug: Xopenex (levalbuterol) 1.25 mg Route: Inhalation; jl7 15:15 Drug: Tussionex Pennkinetic ER (chlorpheniramine-hydrocodone) Suspension 5 ml Route: PO;iw 16:15 Follow up: Response: No adverse reaction iw 15:15 Drug: Lasix (furosemide) 20 mg Route: IVP; Site: left antecubital; iw 15:45 Follow up: Response: No adverse reaction iw 18:10 Drug: Lasix (furosemide) 20 mg Route: IVP; Site: left antecubital; iw 18:30 Follow up: Response: No adverse reaction iw Disposition Summary: 04/30/21 16:37 Hospitalization Ordered Hospitalization Status: Inpatient Admission rn Provider: Margy Dean rn Location: Telemetry/MedSurg (Inpatient) rn Condition: Stable rn Problem: new rn Symptoms: have improved rn Bed/Room Type: Standard rn Room Assignment: 402(04/30/21 20:05) cg Diagnosis - Unspecified combined systolic (congestive) and diastolic (congestive) heart failure rn - Dyspnea, unspecified rn Forms: - Medication Reconciliation Form rn - SBAR form rn Signatures: Dispatcher [employer] EDMS Jacqueline Moran RN RN iw Jann Redd MD MD rn Smirch, Shelby, RN RN Amna Gordon RN RN Chelsey Evans RN RN jl7 Corrections: (The following items were deleted from the chart) 14:49 13:58 SARS-COV-2 RT PCR+MOL.LAB.BRZ ordered. EDMS EDMS 14:50 13:58 Influenza Screen (A \T\ B)+BA.LAB.BRZ ordered. EDMS EDMS 20:05 16:37 rn cg
[2021-04-30] MEDS ORDERED: ACETAMINOPHEN 500 MG TAB PO PRN (17:17)
[2021-04-30] MEDS ORDERED: ONDANSETRON 4 MG/2 ML VIAL IV PRN (17:17)
--- NOTE | 2021-04-30 17:33 | RAD REPORT ---
EXAM DESCRIPTION: CT - Chest For Pe Angio - 04/30/2021 4:54 pm CLINICAL HISTORY: Cough;Dyspnea COMPARISON: Chest Single View dated 04/30/2021 TECHNIQUE: Dynamically enhanced 3 mm thick images of the chest were obtained during administration o f approximately 150mL Isovue 370 IV contrast. Coronal and oblique MIP reconstruction images were gene rated and reviewed. Exam utilizes a protocol to evaluate the pulmonary arterial tree. All CT scans are performed using dose optimization technique as appropriate and may include automated exposure control or mA/KV adjustment according to patient size. FINDINGS: No pulmonary emboli are identified. The aorta as imaged shows no acute or suspicious finding. No pericardial thickening or effusion. Card iomegaly present. No focal mass or consolidation. Respiratory motion is present accentuating the interstitial pattern. Edema and infiltrate can be masked. No endobronchial lesion. No pleural effusion or pleural thickenin g. No mediastinal or hilar suspicious masses. No chest wall masses or abnormal axillary lymphadenopathy. IMPRESSION: No pulmonary emboli identified. No focal mass or consolidation. Interstitial markings are prominent in part due to motion. Interstiti al edema or interstitial infiltrate cannot be excluded.
[2021-04-30] MEDS ORDERED: FUROSEMIDE 20 MG/ 2ML VIAL ONE (17:49)
[2021-04-30] MEDS ORDERED: Levofloxacin 750mg IV 750 MG/150 ML BAG IV SCH (18:00)
[2021-04-30] MEDS ORDERED: NA CHLORIDE 0.9% 1,000 ML IV SCH (18:00)
[2021-04-30] MEDS ORDERED: IPRATROPIUM BROM 0.5MG/2.5ML NEB PRN (18:25)
[2021-04-30] MEDS ORDERED: ALBUTEROL 2.5 MG/3 ML NEB SOL NEB PRN (18:25)
[2021-04-30] MEDS ORDERED: IPRATROPIUM BROM 0.5MG/2.5ML NEB SCH (20:00)
[2021-04-30] MEDS ORDERED: ALBUTEROL 2.5 MG/3 ML NEB SOL NEB SCH (20:00)
[2021-04-30] MEDS ORDERED: LOSARTAN POTASSIUM 50 MG TABLET PO SCH (21:00)
[2021-04-30] MEDS ORDERED: METOPROLOL XL 25 MG TAB PO SCH (21:00)
--- NOTE | 2021-04-30 22:50 | P.HP ---
Certification for Inpatient Patient admitted to: Inpatient With expected LOS: >2 Midnights Patient will require the following post-hospital care: None Practitioner: I am a practitioner with admitting privileges, knowledge of patient current condition, hospital course, and medical plan of care. Services: Services provided to patient in accordance with Admission requirements found in Title 42 Section 412.3 of the Code of Federal Regulations Patient History Date of Service: 04/30/21 Reason for admission: Congestive heart failure exacerbation History of Present Illness: Patient is a 81-year-old gentleman with a history of Coronary artery disease who presents to the hospital with orthopnea. Patient also with PND and dyspnea on exertion. Patient has notice some lower extremity edema as well. Patient decided to come to the hospital as patient respiratory status was worsening. Patient's chest x-ray showed questionable interstitial/pulmonary edema. Patient also had a CT scan which did not reveal any significant abnormality. Patient was admitted to the hospital for further evaluation. Allergies No Known Allergies Allergy (Verified 03/04/20 14:50) Home Medications: Amlodipine [Norvasc*] 10 mg PO DAILY 06/24/17 Aspirin [Aspirin EC 81 MG] 81 mg PO DAILY 06/24/17 Atorvastatin Calcium [Lipitor] 40 mg PO DAILY 06/24/17 Clopidogrel Bisulfate [Plavix] 75 mg PO DAILY 06/24/17 Lisinopril [Zestril] 40 mg PO DAILY 06/24/17 Metoprolol Succinate [Toprol Xl] 200 mg PO DAILY 06/24/17 Acetaminophen with Codeine [Tylenol with Codeine #4 Tablet] 1 each PO Q4HP PRN #40 tablet 06/30/17 Ciprofloxacin HCl [Cipro 500 MG Tablet] 500 mg PO BID #20 tab 06/30/17 Tamsulosin [Flomax] 0.4 mg PO BEDTIME #30 cap 06/30/17 - Past Medical/Surgical History Has patient received pneumonia vaccine in the past: Yes -: HTN -: Hyperlipidemia -: Stroke (Dec 2016) -: Carotid endarterectomy -: Coronary artery disease with stents - Family History Father Family History: Reviewed- Non-Contributory - Social History Smoking Status: Never smoker Alcohol use: No CD- Drugs: No Review of Systems 10-point ROS is otherwise unremarkable Physical Examination - Vital Signs Temperature: 98.5 F Blood Pressure: 195/88 Pulse: 72 Respirations: 22 - Physical Exam General: Alert, In no apparent distress, Oriented x3 HEENT: Atraumatic, PERRLA, Mucous membr. moist/pink, EOMI, Sclerae nonicteric Neck: Supple, 2+ carotid pulse no bruit, No LAD, Without JVD or thyroid abnormality Respiratory: Diminished, Crackles/rales Cardiovascular: Regular rate/rhythm, Normal S1 S2, Systolic murmur Gastrointestinal: Normal bowel sounds, Soft and benign, Non-distended, No tenderness Musculoskeletal: No clubbing, No swelling, No tenderness Integumentary: No rashes Neurological: Normal gait, Normal speech, Normal strength at 5/5 x4 extr, Normal tone, Sensation intact, Normal affect Lymphatics: No axilla or inguinal lymphadenopathy - Studies Laboratory Data (last 24 hrs) 04/30/21 14:10: PT 12.4, INR 1.08, APTT 27.6 04/30/21 14:10: WBC 8.10, Hgb 12.2 L, Hct 38.8 L, Plt Count 260 04/30/21 14:10: Sodium 137, Potassium 3.9, BUN 12, Creatinine 0.94, Glucose 173 H, Magnesium 2.1, Total Bilirubin 0.4, AST 30, ALT 23, Alkaline Phosphatase 82 Assessment & Plan - Problems (Diagnosis) (1) Acute CHF (congestive heart failure) Current Visit: Yes Status: Acute (2) Dyspnea on exertion Current Visit: Yes Status: Acute (3) Coronary artery disease Current Visit: Yes Status: Acute - Plan 1. Echocardiogram 2. Continue with cardiac medications 3. Start low-dose beta-brett in 48 hrs 4. Cardiology consultation 5. Aggressive diuresis 6. Strict I's and O's 7. Repeat CXR 8. Daily weights 9. Education regarding diet and treatment of congestive heart failure Discharge Plan: Home Plan to discharge in: Greater than 2 days - Advance Directives Does patient have a Living Will: No Does patient have a Durable POA for Healthcare: No - Code Status/Comfort Care Code Status Assessed: Yes Code Status: Full Code Critical Care: No Time Spent Managing PTS Care (In Minutes): 45
[2021-04-30] MEDS: BENZONATATE 100 MG CAP PO PRN (23:02)
[2021-05-01] MEDS: FUROSEMIDE 40 MG/4 ML VIAL IV SCH ×4 (00:26→23:24)
[2021-05-01] MEDS: HYDRALAZINE HCL 20 MG/ML VIAL IV PRN ×2 (03:27→11:32)
[2021-05-01] MEDS: HYDROCODONE/CHLORPHEN 5 ML/OSYR PO PRN (03:36)
[2021-05-01 04:05] LABS: Absolute Lymphocytes (CBC) 0.7 K/uL (0.7-4.9); Basophils % 0.4 % (0-1.3); Hematocrit 36.9 % (39.6-49.0); Lymphocytes % 10.4 % (15.3-44.8)
[2021-05-01 04:31] LABS: Albumin 3.4 g/dL (3.4-5.0); Bilirubin Total 0.5 mg/dL (0.2-1.0); Magnesium 2.2 mg/dL (1.8-2.4); Phosphorus 3.5 mg/dL (2.5-4.9); Potassium 3.5 mmol/L (3.5-5.1); Protein, Total 8.1 g/dL (6.4-8.2)
[2021-05-01 04:38] LABS: Anisocytosis 1+; Blood Morphology Comment NOTED (NOT SEEN); Ovalocytes 1+; Platelet Estimate ADEQ
[2021-05-01] MEDS ORDERED: METOPROLOL XL 100 MG TAB PO SCH (06:00)
[2021-05-01] MEDS: ASPIRIN EC 81 MG TAB PO SCH (08:38)
[2021-05-01] MEDS: CLOPIDOGREL 75 MG TABLET PO SCH (08:38)
[2021-05-01] MEDS: ENOXAPARIN 40 MG/0.4 ML SQ SCH (08:39)
[2021-05-01] MEDS: BENZONATATE 100 MG CAP PO PRN ×2 (08:39→19:57)
[2021-05-01 08:42] LABS: Thyroid Stimulating Hormone 5.33 uIU/mL (0.360-3.740)
[2021-05-01] MEDS ORDERED: POTASSIUM CL SA 10 MEQ TAB PO ONE (09:00)
[2021-05-01] MEDS: METOPROLOL XL 100 MG TAB PO SCH (09:39)
[2021-05-01] MEDS: VALSARTAN 160 MG TAB PO SCH ×2 (09:39→19:57)
--- NOTE | 2021-05-01 16:14 | P.PN ---
Subjective Date of Service: 05/01/21 Primary Care Provider: Dr. Pelayo Chief Complaint: Congestive heart failure exacerbation Subjective: Improving (Still with some shortness of breath. Patient on room air.) Physical Examination - Vital Signs Temperature: 98.2 F Blood Pressure: 151/69 Pulse: 73 Respirations: 20 Pulse Ox (%): 96 Assessment & Plan Discharge Plan: Home Plan to discharge in: 24 Hours Physician Review Additional Text: COVID: Negative CT scan: COMPARISON: Chest Single View dated 04/30/2021 TECHNIQUE: Dynamically enhanced 3 mm thick images of the chest were obtained during administration of approximately 150mL Isovue 370 IV contrast. Coronal and oblique MIP reconstruction images were generated and reviewed. Exam utilizes a protocol to evaluate the pulmonary arterial tree. All CT scans are performed using dose optimization technique as appropriate and may include automated exposure control or mA/KV adjustment according to patient size. FINDINGS: No pulmonary emboli are identified. The aorta as imaged shows no acute or suspicious finding. No pericardial thickening or effusion. Cardiomegaly present. No focal mass or consolidation. Respiratory motion is present accentuating the interstitial pattern. Edema and infiltrate can be masked. No endobronchial lesion. No pleural effusion or pleural thickening. No mediastinal or hilar suspicious masses. No chest wall masses or abnormal axillary lymphadenopathy. IMPRESSION: No pulmonary emboli identified. No focal mass or consolidation. Interstitial markings are prominent in part due to motion. Interstitial edema or interstitial infiltrate cannot be excluded. CXR: COMPARISON: February 2020 TECHNIQUE: AP portable chest image was obtained 04/30/2021 2:48 pm . FINDINGS: No focal mass or consolidation. Interstitial markings are prominent in part due to under penetrated portable technique. Heart and vasculature are normal. No measurable pleural effusion and no pneumothorax. No acute bony abnormality seen. No acute aortic findings suspected. IMPRESSION: No focal mass or consolidation. Prominent interstitial pattern could be a mild edema or infiltrate. ECHO: Pending Physical exam: General: Alert, In no apparent distress, Oriented x3 HEENT: Atraumatic, PERRLA, Mucous membr. moist/pink, EOMI, Sclerae nonicteric Neck: Supple, 2+ carotid pulse no bruit, No LAD, Without JVD or thyroid abnormality Respiratory: Better air movement bilateral. Cardiovascular: Regular rate/rhythm, Normal S1 S2, Systolic murmur Gastrointestinal: Normal bowel sounds, Soft and benign, Non-distended, No tenderness Musculoskeletal: No clubbing, No swelling, No tenderness Integumentary: 1-2+ pitting edema to the lower extremities Lymphatics: No axilla or inguinal lymphadenopathy Impression: Dyspnea secondary to acute on chronic diastolic CHF CAD Hypertension GERD Hypothyroidism Diabetes mellitus type 2 Hyperlipidemia Plan: Continue with IV diuresis. Patient on IV Lasix 40 mg 3 times a day. We will teach on 1500 cc/day fluid restriction. Obtain echocardiogram. Recheck chest x-ray tomorrow. Wean off oxygen. Restart blood pressure medicationmetoprolol, valsartan, aspirin and Plavix. Restart Protonix. Restart Lipitor. Continue levothyroxine. Will check T4 and TSH. Hold Metformin. Continue Accu-Cheks and sliding scale. Anticipate continued improvement. Likely home discharge tomorrow. DVT prophylaxis: Lovenox CODE STATUS: Full code Advance care [id number] minutes: Home at discharge Time Spent Managing Pts Care (In Minutes): 55
--- NOTE | 2021-05-01 16:27 | CON ---
Date of Consultation: 05/01/2021 Reason For Consultation: CHF. History Of Present Illness: An 81-year-old male with history of coronary artery disease, congestive heart failure, hypertension, dyslipidemia, CVA, carotid stenosis, presented with shortness of breath, orthopnea, lower extremity edema, diagnosed with heart failure and pulmonary edema. Started on IV d iuretics. He feels better. Still has significant swelling. Past Medical History: As outlined above in the HPI. Medications: Refer to reconciliation sheet for detailed list. Allergies: NO KNOWN DRUG ALLERGIES. Family History: No premature coronary artery disease or cancer. Social History: Does not smoke or drink. Does not use any drugs. Review of Systems: All systems reviewed and they were negative except for mentioned in the HPI. Physical Examination: Vital Signs: Temperature is 98.2, pulse 65, breathing at 20, blood pressure 182/77, saturating 96%. General: Pleasant elderly male, in no apparent distress. Head and Neck: Pupils are equal, reactive to light. Intact eye movements. No JVD. No cervical lym phadenopathy. Neck: Supple. Thyroid not enlarged. Lungs: Crackles in both lung nj half the way up. No accessory muscle use or muscle retraction. Heart: Regular rate and rhythm with S3. Abdomen: Soft, nontender. Bowel sounds positive. No organomegaly. No masses or hernia. No rigidi ty or rebound. Extremities: 2+ pitting edema bilaterally. No clubbing, cyanosis. Intact pulses. Skin: No rash. Neurologic: Alert, awake, oriented x3. No acute focal deficits appreciated. Investigations: Hemoglobin 11.6, creatinine 1.02, BUN 15. NT proBNP is 2864. Troponin 0.11. On ec ho, ejection fraction is 35% to 40%. Assessment And Recommendations: 1.Acute on chronic systolic congestive heart failure exacerbation. Recommend Lasix 40 mg IV q.8 yissel rs. Monitor BUN, creatinine, electrolytes, and monitor clinically. Low-salt diet. Ischemia workup was not done recently. The patient follows up with Dr. Dan in the office. We will obtain the re cords to evaluate the last ejection fraction on the patient. If it drops, definitely ischemic workup with coronary angiogram will be warranted. 2.Borderline elevated troponin could be due to the heart failure. Please trend at least 1 more set of cardiac enzymes and once the patient is euvolemic, we will discuss plan for coronary angiogram, wh ich was not done recently. /VIDYA Voice ID: [id number] Report ID: [id number]
[2021-05-01] MEDS ORDERED: ATORVASTATIN 40 MG TAB PO SCH (21:00)
[2021-05-01] MEDS ORDERED: METOPROLOL XL 50 MG TAB PO SCH (21:00)
[2021-05-02] MEDS: HYDROCODONE/CHLORPHEN 5 ML/OSYR PO PRN ×2 (00:02→11:17)
[2021-05-02 04:51] VITALS: BMI 31.1
[2021-05-02] MEDS: METOPROLOL XL 100 MG TAB PO SCH (05:27)
--- NOTE | 2021-05-02 06:16 | P.PN ---
Subjective Date of Service: 05/02/21 Primary Care Provider: Dr. Pelayo Chief Complaint: Congestive heart failure exacerbation Subjective: Improving, Doing well Physical Examination - Vital Signs Temperature: 98.2 F Blood Pressure: 189/81 Pulse: 77 Respirations: 19 Pulse Ox (%): 96 Assessment & Plan Discharge Plan: Home Plan to discharge in: 24 Hours Physician Review Additional Text: COVID: Negative CT scan: COMPARISON: Chest Single View dated 04/30/2021 TECHNIQUE: Dynamically enhanced 3 mm thick images of the chest were obtained during administration of approximately 150mL Isovue 370 IV contrast. Coronal and oblique MIP reconstruction images were generated and reviewed. Exam utilizes a protocol to evaluate the pulmonary arterial tree. All CT scans are performed using dose optimization technique as appropriate and may include automated exposure control or mA/KV adjustment according to patient size. FINDINGS: No pulmonary emboli are identified. The aorta as imaged shows no acute or suspicious finding. No pericardial thickening or effusion. Cardiomegaly present. No focal mass or consolidation. Respiratory motion is present accentuating the interstitial pattern. Edema and infiltrate can be masked. No endobronchial lesion. No pleural effusion or pleural thickening. No mediastinal or hilar suspicious masses. No chest wall masses or abnormal axillary lymphadenopathy. IMPRESSION: No pulmonary emboli identified. No focal mass or consolidation. Interstitial markings are prominent in part due to motion. Interstitial edema or interstitial infiltrate cannot be excluded. CXR: COMPARISON: February 2020 TECHNIQUE: AP portable chest image was obtained 04/30/2021 2:48 pm . FINDINGS: No focal mass or consolidation. Interstitial markings are prominent in part due to under penetrated portable technique. Heart and vasculature are normal. No measurable pleural effusion and no pneumothorax. No acute bony abnormality seen. No acute aortic findings suspected. IMPRESSION: No focal mass or consolidation. Prominent interstitial pattern could be a mild edema or infiltrate. ECHO: MEASUREMENTS (cm) DIASTOLIC (NORMALS) SYSTOLIC (NORMALS) IVSd 1.0 (0.6-1.2) LA Diam 4.1 (1.9-4.0) LVEF 35-40% LVIDd 5.2 (3.5-5.7) LVIDs 4.1 (2.0-3.5) %FS 22% LVPWd 1.0 (0.6-1.2) Ao Diam 2.9 (2.0-3.7) 2 DIMENSIONAL ASSESSMENT: RIGHT ATRIUM: NORMAL LEFT ATRIUM: ENLARGED RIGHT VENTRICLE: NORMAL LEFT VENTRICLE: DEPRESSED TRICUSPID VALVE: NORMAL MITRAL VALVE: PULMONIC VALVE: NORMAL AORTIC VALVE: PERICARDIAL EFFUSION: NONE AORTIC ROOT: NORMAL LEFT VENTRICULAR WALL MOTION: MODERATE GLOBAL HYPOKINESIS. DOPPLER/COLOR FLOW: SEE BELOW. COMMENTS: MODERATELY DEPRESSED LEFT VENTRICULAR EJECTION FRACTION 35-40%. MILD MITRAL REGURGITATION. MODERATE DIASTOLIC DYSFUNCTION. MILD AORTIC REGURGITATION. Follow up CXR: COMPARISON: Chest Single View dated 04/30/2021; Chest Pa And Lat (2 Views) dated 03/04/2020; Chest Single View dated 12/25/2016; CHEST PA AND LAT 2 VIEW dated 07/03/2011; Chest For Pe Angio dated 04/30/2021 FINDINGS: Lines: None. Lungs: Similar prominence of the pulmonary interstitium. No focal consolidation. Pleural: No significant pleural effusions or pneumothorax. Cardiac: Cardiomegaly. Bones: No acute fractures. IMPRESSION: No significant change compared with 04/30/2021 with similar prominence of the pulmonary interstitium that could reflect mild edema or nonspecific infection/inflammation. Physical exam: General: Alert, In no apparent distress, Oriented x3 HEENT: Neck supple Respiratory: Better air movement bilateral. Patient on room air Cardiovascular: Regular rate/rhythm, Normal S1 S2, Systolic murmur Gastrointestinal: Normal bowel sounds, Soft and benign, Non-distended, No tenderness Musculoskeletal: No clubbing, No swelling, No tenderness Integumentary: Edema to the lower extremities improved Lymphatics: No axilla or inguinal lymphadenopathy Impression: Dyspnea secondary to acute on chronic combined CHF with ejection fraction 35 to 40% with moderate diastolic dysfunction noted CAD Hypertension GERD Hypothyroidism Diabetes mellitus type 2 Hyperlipidemia Plan: Patient clinically improved. Continue with IV diuresis Lasix 40 mg 3 times a day. Continue to teach on 1500 cc/day fluid restriction and low-salt diet. Continue with metoprolol XL 200 mg daily and valsartan 160 mg 1 pill twice daily. We will add hydralazine 25 mg 1 pill twice daily for better blood pressure control. Physical therapy to assess ambulation. Case discussed at length with cardiology. Patient had a ischemic work-up done recently. No intervention needed at this time. Continue with treatment plan. Possible discharge later today with new medications including Lasix and hydralazine. Will discuss with family on plan of care. Continue Lipitor 40 mg daily. Continue levothyroxine 50 mcg daily. Continue Protonix 40 mg daily. Continue with Accu-Cheks and sliding scale. DVT prophylaxis: Lovenox CODE STATUS: Full code Advance care minutes: Home at discharge Time Spent Managing Pts Care (In Minutes): 55
[2021-05-02] MEDS ORDERED: LEVOTHYROXINE SOD 0.05 MG TABLET PO SCH (06:30)
[2021-05-02 06:46] LABS: Potassium 3.4 mmol/L (3.5-5.1)
--- NOTE | 2021-05-02 07:28 | ECHO ---
HEIGHT: 5 ft 6 in WEIGHT: 193 lb 6.4 oz DATE OF STUDY: 05/01/[address]: Margy Dean MD 2-DIMENSIONAL: YES M.MODE: YES DOPPLER: YES COLOR FLOW: YES TDS: NO PORTABLE: NO DEFINITY: NO BUBBLE STUDY: NO DIAGNOSIS: CONGESTIVE HEART FAILURE CARDIAC HISTORY: CATHERIZATION: SURGERY: PROSTHETIC VALVE: PACEMAKER: MEASUREMENTS (cm) DIASTOLIC (NORMALS) SYSTOLIC (NORMALS) IVSd 1.0 (0.6-1.2) LA Diam 4.1 (1.9-4.0) LVEF 35-40% LVIDd 5.2 (3.5-5.7) LVIDs 4.1 (2.0-3.5) %FS 22% LVPWd 1.0 (0.6-1.2) Ao Diam 2.9 (2.0-3.7) 2 DIMENSIONAL ASSESSMENT: RIGHT ATRIUM: NORMAL LEFT ATRIUM: ENLARGED RIGHT VENTRICLE: NORMAL LEFT VENTRICLE: DEPRESSED TRICUSPID VALVE: NORMAL MITRAL VALVE: PULMONIC VALVE: NORMAL AORTIC VALVE: PERICARDIAL EFFUSION: NONE AORTIC ROOT: NORMAL LEFT VENTRICULAR WALL MOTION: MODERATE GLOBAL HYPOKINESIS. DOPPLER/COLOR FLOW: SEE BELOW. COMMENTS: MODERATELY DEPRESSED LEFT VENTRICULAR EJECTION FRACTION 35-40%. MILD MITRAL REGURGITATION. MODERATE DIASTOLIC DYSFUNCTION. MILD AORTIC REGURGITATION. TECHNOLOGIST: Augustine BINGHAM
[2021-05-02] MEDS ORDERED: POTASSIUM 25 MEQ EFFERV TAB PO ONE (08:00)
--- NOTE | 2021-05-02 08:00 | RAD REPORT ---
EXAM DESCRIPTION: RAD - Chest Single View - 05/02/2021 5:45 am CLINICAL HISTORY: Follow up CHF COMPARISON: Chest Single View dated 04/30/2021; Chest Pa And Lat (2 Views) dated 03/04/2020; Chest Sin gle View dated 12/25/2016; CHEST PA AND LAT 2 VIEW dated 07/03/2011; Chest For Pe Angio dated 04/30/2021 FINDINGS: Lines: None. Lungs: Similar prominence of the pulmonary interstitium. No focal consolidation. Pleural: No significant pleural effusions or pneumothorax. Cardiac: Cardiomegaly. Bones: No acute fractures. Other: IMPRESSION: No significant change compared with 04/30/2021 with similar prominence of the pulmonary interstitium that could reflect mild edema or nonspecific infection/inflammation.
--- NOTE | 2021-05-02 08:51 | P.DS ---
Admission Date: 04/30/21 Discharge Date: 05/02/21 Primary Care Provider: Dr. Pelayo; Cardiology-Dr. Dan Disposition: ROUTINE DISCHARGE Discharge Condition: GOOD Reason for Admission: Congestive heart failure exacerbation Consultations: Cardiology-Dr. Dan Procedures: COVID: Negative CT scan: COMPARISON: Chest Single View dated 04/30/2021 TECHNIQUE: Dynamically enhanced 3 mm thick images of the chest were obtained during administration of approximately 150mL Isovue 370 IV contrast. Coronal and oblique MIP reconstruction images were generated and reviewed. Exam utilizes a protocol to evaluate the pulmonary arterial tree. All CT scans are performed using dose optimization technique as appropriate and may include automated exposure control or mA/KV adjustment according to patient size. FINDINGS: No pulmonary emboli are identified. The aorta as imaged shows no acute or suspicious finding. No pericardial thickening or effusion. Cardiomegaly present. No focal mass or consolidation. Respiratory motion is present accentuating the interstitial pattern. Edema and infiltrate can be masked. No endobronchial lesion. No pleural effusion or pleural thickening. No mediastinal or hilar suspicious masses. No chest wall masses or abnormal axillary lymphadenopathy. IMPRESSION: No pulmonary emboli identified. No focal mass or consolidation. Interstitial markings are prominent in part due to motion. Interstitial edema or interstitial infiltrate cannot be excluded. CXR: COMPARISON: February 2020 TECHNIQUE: AP portable chest image was obtained 04/30/2021 2:48 pm . FINDINGS: No focal mass or consolidation. Interstitial markings are prominent in part due to under penetrated portable technique. Heart and vasculature are normal. No measurable pleural effusion and no pneumothorax. No acute bony abnormality seen. No acute aortic findings suspected. IMPRESSION: No focal mass or consolidation. Prominent interstitial pattern could be a mild edema or infiltrate. ECHO: MEASUREMENTS (cm) DIASTOLIC (NORMALS) SYSTOLIC (NORMALS) IVSd 1.0 (0.6-1.2) LA Diam 4.1 (1.9-4.0) LVEF 35-40% LVIDd 5.2 (3.5-5.7) LVIDs 4.1 (2.0-3.5) %FS 22% LVPWd 1.0 (0.6-1.2) Ao Diam 2.9 (2.0-3.7) 2 DIMENSIONAL ASSESSMENT: RIGHT ATRIUM: NORMAL LEFT ATRIUM: ENLARGED RIGHT VENTRICLE: NORMAL LEFT VENTRICLE: DEPRESSED TRICUSPID VALVE: NORMAL MITRAL VALVE: PULMONIC VALVE: NORMAL AORTIC VALVE: PERICARDIAL EFFUSION: NONE AORTIC ROOT: NORMAL LEFT VENTRICULAR WALL MOTION: MODERATE GLOBAL HYPOKINESIS. DOPPLER/COLOR FLOW: SEE BELOW. COMMENTS: MODERATELY DEPRESSED LEFT VENTRICULAR EJECTION FRACTION 35-40%. MILD MITRAL REGURGITATION. MODERATE DIASTOLIC DYSFUNCTION. MILD AORTIC REGURGITATION. Follow up CXR: COMPARISON: Chest Single View dated 04/30/2021; Chest Pa And Lat (2 Views) dated 03/04/2020; Chest Single View dated 12/25/2016; CHEST PA AND LAT 2 VIEW dated 07/03/2011; Chest For Pe Angio dated 04/30/2021 FINDINGS: Lines: None. Lungs: Similar prominence of the pulmonary interstitium. No focal consolidation. Pleural: No significant pleural effusions or pneumothorax. Cardiac: Cardiomegaly. Bones: No acute fractures. IMPRESSION: No significant change compared with 04/30/2021 with similar prominence of the pulmonary interstitium that could reflect mild edema or nonspecific infection/inflammation. 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 Patient presented with increasing shortness of breath and lower extremity edema. Patient admitted for treatment. Hospital Course: Patient presented with dyspnea and edema to the lower extremities. Patient was admitted for treatment. Patient seen and evaluated by cardiology. CT scan showed no evidence of pulmonary embolism or pneumonia. Patient received IV Lasix with improvement. Echocardiogram showed ejection fraction 35 to 40% with moderate diastolic dysfunction. Combined acute on chronic CHF noted. Medications were adjusted for better control. Patient taught 1500 cc/day fluid restriction and low-salt diet. At discharge patient on room air with improved symptoms. At discharge the patient will continue with the 1500 cc/day fluid restriction and low-salt diet. He is to monitor his weight daily. If his weight increases by more than 5 pounds further adjustment in medication may be required. This can be done with the help of his PCP or cardiology. At discharge patient will continue with Lasix 40 mg 1 pill twice daily. Education on CHF will be provided. Patient will continue with his other medications including aspirin 81 mg daily, Plavix 25 mg daily, metoprolol XL 200 mg daily, valsartan 320 mg daily, and hydralazine 25 mg 1 pill twice daily. Patient will need to limit his activities. Recommend to elevate legs when sitting or lying. This was addressed in detail with patient and family. Recommend follow-up with cardiology in 1 week to follow-up his hospitalization and to continue his care. Recommend follow-up with PCP in 1 week to follow-up his hospitalization. Recommend to recheck labBMP to monitor his potassium level on Lasix. Patient with CAD and hypertension. Cardiology reports patient had recent ischemic work-up. Blood pressure was slightly elevated. Patient required additional medication including hydralazine. At discharge patient will continue with metoprolol XL 200 mg daily, valsartan 320 mg daily, and hydralazine 25 mg 1 pill twice daily. Recommend to monitor blood pressure daily. Recommend to maintain blood pressure less than 130/80. If blood pressure remains above 140/90 further adjustment in medication may be required. This can be done with the help of his PCP or cardiology. Patient with hypothyroidism. Medication had recently been adjusted. TSH and free T4 stable. At discharge patient will continue with levothyroxine 50 mcg daily. Recommend to recheck TSH and free T4 in 4 to 6 weeks to monitor and adjust medication. Patient with GERD. At discharge patient will continue with Protonix 40 mg daily. Patient with diabetes mellitus type 2. At discharge patient will continue with Metformin 750 mg 1 pill twice daily. Recommend to maintain blood sugar less than 140 fasting and less than 200 after meals. Further adjustment may be required. Hemoglobin A1c obtained. Recommend to recheck hemoglobin A1c with 3 months to monitor his progress. Recommend follow-up with PCP to further monitor and adjust medication. Patient with hyperlipidemia. LDL well controlled. At discharge patient will continue with Lipitor 40 mg daily. Vital Signs/Physical Exam: Temp Pulse Resp BP Pulse Ox 98.2 F 77 19 189/81 H 96 05/02/21 08:33 05/02/21 08:33 05/02/21 08:33 05/02/21 08:33 05/02/21 08:33 General: Alert, In no apparent distress, Oriented x3, Cooperative HEENT: Atraumatic Neck: Supple Respiratory: Clear to auscultation bilaterally Cardiovascular: Normal pulses, Regular rate/rhythm Gastrointestinal: Normal bowel sounds, No tenderness, No masses, No rebound, No guarding Musculoskeletal: Other (Edema to the lower extremity significantly improved.) Integumentary: Other (Pitting edema to the lower extremities improved less than 1+ noted) Neurological: Normal speech, Normal strength at 5/5 x4 extr, Normal tone, Normal affect Laboratory Data at Discharge: WBC 6.80 K/uL (4.3-10.9) D 05/01/21 03:49 Hgb 11.6 g/dL (13.6-17.9) L 05/01/21 03:49 Hct 36.9 % (39.6-49.0) L 05/01/21 03:49 Plt Count 256 K/uL (152-406) 05/01/21 03:49 PT 12.4 SECONDS (9.5-12.5) 04/30/21 14:10 INR 1.08 04/30/21 14:10 APTT 27.6 SECONDS (24.3-36.9) 04/30/21 14:10 Sodium 136 mmol/L (136-145) 05/02/21 06:13 Potassium 3.4 mmol/L (3.5-5.1) L 05/02/21 06:13 BUN 18 mg/dL (7-18) 05/02/21 06:13 Creatinine 0.93 mg/dL (0.55-1.3) 05/02/21 06:13 Glucose 147 mg/dL (74-106) H 05/02/21 06:13 Phosphorus 3.5 mg/dL (2.5-4.9) 05/01/21 03:49 Magnesium 2.2 mg/dL (1.8-2.4) 05/01/21 03:49 Total Bilirubin 0.5 mg/dL (0.2-1.0) 05/01/21 03:49 AST 25 U/L (15-37) 05/01/21 03:49 ALT 22 U/L (12-78) 05/01/21 03:49 Alkaline Phosphatase 75 U/L (45-117) 05/01/21 03:49 Troponin I 0.11 ng/mL (0.0-0.045) H 05/02/21 06:13 Triglycerides 57 mg/dL (<150) 05/01/21 03:49 Cholesterol 98 mg/dL (<200) 05/01/21 03:49 HDL Cholesterol 44 mg/dL (40-60) 05/01/21 03:49 Cholesterol/HDL Ratio 2.23 05/01/21 03:49 Home Medications: Aspirin [Aspirin EC 81 MG] 81 mg PO DAILY 06/24/17 Atorvastatin Calcium [Lipitor] 40 mg PO BEDTIME 06/24/17 Clopidogrel Bisulfate [Plavix] 75 mg PO DAILY 06/24/17 Metoprolol Succinate [Toprol Xl] 200 mg PO DAILY 06/24/17 Levothyroxine Sodium [Levothyroxine] 50 mcg PO [id number] 05/01/21 Metformin HCl [Metformin HCl ER] 750 mg PO BIDWM 05/01/21 Valsartan [Diovan] 320 mg PO DAILY 05/01/21 Furosemide [Lasix] 40 mg PO BIDL #60 tab 05/02/21 Hydralazine [Apresoline*] 25 mg PO BID #60 tab 05/02/21 New Medications: Hydralazine [Apresoline*] 25 mg PO BID #60 tab Furosemide [Lasix] 40 mg PO BIDL #60 tab Physician Discharge Instructions: Patient presented with dyspnea and edema to the lower extremities. Patient was admitted for treatment. Patient seen and evaluated by cardiology. CT scan showed no evidence of pulmonary embolism or pneumonia. Patient received IV Lasix with improvement. Echocardiogram showed ejection fraction 35 to 40% with moderate diastolic dysfunction. Combined acute on chronic CHF noted. Medications were adjusted for better control. Patient taught 1500 cc/day fluid restriction and low-salt diet. At discharge patient on room air with improved symptoms. At discharge the patient will continue with the 1500 cc/day fluid restriction and low-salt diet. He is to monitor his weight daily. If his weight increases by more than 5 pounds further adjustment in medication may be required. This can be done with the help of his PCP or cardiology. At discharge patient will continue with Lasix 40 mg 1 pill twice daily. Education on CHF will be provided. Patient will continue with his other medications including aspirin 81 mg daily, Plavix 25 mg daily, metoprolol XL 200 mg daily, valsartan 320 mg daily, and hydralazine 25 mg 1 pill twice daily. Patient will need to limit his activities. This was addressed in detail with patient and family. Recommend to elevate legs when sitting or lying. Recommend follow-up with cardiology in 1 week to follow-up his hospitalization and to continue his care. Recommend follow-up with PCP in 1 week to follow-up his hospitalization. Recommend to recheck labBMP to monitor his potassium level on Lasix. Patient with CAD and hypertension. Cardiology reports patient had recent ischemic work-up. Blood pressure was slightly elevated. Patient required additional medication including hydralazine. At discharge patient will continue with metoprolol XL 200 mg daily, valsartan 320 mg daily, and hydralazine 25 mg 1 pill twice daily. Recommend to monitor blood pressure daily. Recommend to maintain blood pressure less than 130/80. If blood pressure remains above 140/90 further adjustment in medication may be required. This can be done with the help of his PCP or cardiology. Patient with hypothyroidism. Medication had recently been adjusted. TSH and free T4 stable. At discharge patient will continue with levothyroxine 50 mcg daily. Recommend to recheck TSH and free T4 in 4 to 6 weeks to monitor and adjust medication. Patient with GERD. At discharge patient will continue with Protonix 40 mg daily. Patient with diabetes mellitus type 2. At discharge patient will continue with Metformin 750 mg 1 pill twice daily. Recommend to maintain blood sugar less than 140 fasting and less than 200 after meals. Further adjustment may be required. Hemoglobin A1c obtained. Recommend to recheck hemoglobin A1c with 3 months to monitor his progress. Recommend follow-up with PCP to further monitor and adjust medication. Patient with hyperlipidemia. LDL well controlled. At discharge patient will continue with Lipitor 40 mg daily. Diet: ADA Activity: Ad vernon Followup: NONE,NONE [Primary Care Provider] - Time spent managing pt's care (in minutes): 55
[2021-05-02] MEDS ORDERED: HYDRALAZINE HCL 25 MG TABLET PO SCH (09:00)
[2021-05-02] MEDS: ASPIRIN EC 81 MG TAB PO SCH (09:28)
[2021-05-02] MEDS: VALSARTAN 160 MG TAB PO SCH (09:28)
[2021-05-02] MEDS: CLOPIDOGREL 75 MG TABLET PO SCH (09:28)
[2021-05-02] MEDS: ENOXAPARIN 40 MG/0.4 ML SQ SCH (09:29)
[2021-05-02] MEDS: FUROSEMIDE 40 MG/4 ML VIAL IV SCH (09:29)
[2021-05-02] MEDS: BENZONATATE 100 MG CAP PO PRN (09:43)
[2021-05-02 11:11] VITALS: BP 151/67; TEMP 98; O2SAT 95
[2021-05-02] MEDS ORDERED: FUROSEMIDE 40 MG/4 ML VIAL IV ONE (12:00)
== END 2021-05-02 13:44 | disposition home or self-care (01) | DRG 291 ==
LOC: ER 13:08 → ERHOLD 17:32 → 4TH 20:35
PROVIDERS: ADMIT Hospitalist; ATTEND Family Medicine
DX: I11.0 Hypertensive heart disease with heart failure (principal); I50.43 Acute on chronic combined systolic (congestive) and diastolic (congestive) heart failure; E03.9 Hypothyroidism, unspecified; E11.9 Type 2 diabetes mellitus without complications; E78.5 Hyperlipidemia, unspecified; K21.9 Gastro-esophageal reflux disease without esophagitis; I25.10 Atherosclerotic heart disease of native coronary artery without angina pectoris; Z79.82 Long term (current) use of aspirin; Z79.02 Long term (current) use of antithrombotics/antiplatelets; Z79.899 Other long term (current) drug therapy; Z86.73 Personal history of transient ischemic attack (TIA), and cerebral infarction without residual deficits; Z95.5 Presence of coronary angioplasty implant and graft; Z20.822 Contact with and (suspected) exposure to COVID-19; Z79.84 Long term (current) use of oral hypoglycemic drugs; Z79.890 Hormone replacement therapy
CPT/HCPCS: 0240U; 36415; 71045; 71275; 80048; 80053; 80061; 80076; 83036; 83605; 83735; 83880; 84100; 84145; 84439; 84443; 84484; 85025; 85610; 85730; 87040; 93005; 93306; 94640; 96374; 99285; J0360; J1650; J1940; Q9967

== ENCOUNTER 2021-05-06 07:24 | Emergency (ER) | payer OTHER ==
--- OUTSIDE RECORDS SUMMARY | 2021-05-06 07:28 | XMS REPORT | Continuity of Care Document ---
:1940 Author Organization [facility] t Address [address] [place] [address] [address]. [address] [place] [address] Care Team Providers Name Role Phone TIFFANIE WATT Attending Clinician Unavailable SUNIL Attending Clinician Unavailable MAUREEN WATT Admitting Clinician Unavailable SUNIL Admitting Clinician Unavailable Payers Payer Name Policy Type Policy Number Effective Date Expiration Date S ele MEDICARE A B [id number] 2003 00:00:00 MEDICAID OF [place] [id number] 2016 00:00:00 Problems This patient has no [...] [facility] s - ER ER [facility] ent Clinics Amlodipine Amlodipine Yes Manuel [address] [facility] Besylate Besylate [facility] ent Clinics Aspir-81 Aspir-81 Yes Manuel [address] [place] [facility] ent [facility] Amlodipine Amlodipine Yes Manuel [address] [facility] Besylate Besylate [place] [facility] - [facility] l [facility] ent [facility] Hydrochloro Hydrochloro Yes Manuel [address] [facility] thiazide thiazide [place] in the Luke s - morning [facility] ent [facility] Losartan Losartan Yes Manuel [address] Potassium Potassium [place] [facility] - [facility] ent Clinics Immunizations Ordered Filled Immunization Date Status Comments Sour e Immunization Name Name FluAD FluAD 2018-07-[address] [facility] 00[facility]00 [facility] Vital Signs Vital Name Observation Time Observation [...] Type Clinicians Facility Department ID 2021-03-01 Inpatient [facility] Surgery [id number] [facility] 10:47:23 TIFFANIE 2021-05-03 2021-05-03 ambulatory [facility] [id number] [facility] 2021-04-27 2021-04-27 ambulatory [facility] [id number] [facility] 2020-12-27 2020-12-27 Outpatient [facility] [id number] [facility] 2020-09-27 2020-09-27 Outpatient [facility] [id number] [facility] 2020-06-30 2020-06-30 Outpatient [facility] [id number] [facility] 2020-06-30 2020-06-30 Outpatient [facility] [id number] [facility] 2020-06-06 2020-06-06 Outpatient [facility] [id number] [facility] 2020-04-04 2020-04-04 Outpatient [facility] [id number] [facility] 2020-04-01 2020-04-01 Outpatient [facility] [id number] [facility] 2020-03-31 2020-03-31 Outpatient [facility] [id number] [facility] 00:00:00 00:00:00 TIFFANIE 2020-03-23 2020-03-23 Outpatient [facility] [id number] [facility] 2020-03-15 2020-03-15 Outpatient EL [facility] [id number] [facility] 00:00:00 00:00:00 2020-03-14 2020-03-14 Outpatient [facility], [facility] [id number] [facility] 00:00:00 00:00:00 TIFFANIE 2020-03-14 2020-03-14 Outpatient CAROL VENTURA [facility] [id number] [facility] 00:00:00 00:00:00 TIFFANIE 2020-03-11 2020-03-11 Outpatient CAROL V[facility]URA [facility] [id number] [facility] 00:00:00 00:00:00 TIFFANIE 2020-01-27 2020-01-27 [facility] [id number] [address] 08:40[facility]00 08:40:00 [facility] Outpati [facility] Clinics 2019-10-27 2019-10-27 [facility] [id number] 16:00:00 16:00:00 [facility] Outpat[facility] Clinics 2019-10-27 2019-10-27 [facility] [id number] 08:15:00 08:15:00 t [facility] Medicine Outpat[facility] Clinics 2019-07-27 2019-07-27 [facility] [id number] 08:45:00 08:45:00 t [facility] Medicine Outpati ent Clinics 2019-04-09 2019-04-09 [facility] [id number] 09[facility]30:00 09:30:00 t [facility] Medicine Outpati ent Clinics 2018-12-08 2018-12-08 [facility] [id number] 09:30:00 09:30:00 t [facility] Medicine Outpati ent Clinics 2018-07-28 2018-07-28 [facility] [id number] 09:45:00 09:45:00 t [facility] Outpat[facility] Clinics Results Test Description Test Time Test Comments Results Result Sourc e Comments TISSUE EXAM 2020-03-21 Surgical Pathology 14:09:00 Report Case: [id number] Authorizing Provider: Tiffanie Watt MD Collected: 03/16/2020 12:32 PM Ordering Location: [facility] Received: 03/16/2020 01:28 PM PERIOPERATIVE SERVICES Pathologist: Chetan Francis MD Specimen: Plaque, Carotid Artery Plaque ARTERY, RIGHT CAROTID, ENDARTERECTOMY:CALCIFI C ATHEROSCLEROTIC PLAQUE Signing Pathologist Direct Phone Line: [phone] ally signed by Chetan Francis MD on 03/21/2020 at 2:09 [id number]; [id number] stenosis, rightCarotid artery plaqueA. Received fresh labeled with the patient's name, medical record number and "plaque" is a previously incised tubular portion of yellow-kilpatrick plaque measuring 3.5 cm in length and ranging 0.6-0.8 cm in diameter. The specimen is serially sectioned to reveal calcifications measuring up to 0.3 cm in thickness. Crown Wheel Assembler sections are submitted in A1, following decalcification.ALLAN Jackson PA (ASCP)cmPerformed POCT-GLUCOSE METER 2020-03-17 12:05:00 Test Item Value Reference Range Interpretation Comme nts POC-GLUCOSE METER (BEAKER) 135 mg/dL 70-110 H : TESTED AT [facility] [address] [facility] (test code = 1538) [place] [address]: Lay Out Machine Operator/Techni juliano ID = [id number] for ABDIAS FAULKNER BASIC METABOLIC [id number] 07:45:00 Test Item Value Reference Range Interpretation [...] 1092) DATA TO CALCULA TE ESTIMATED GFR. Lay Out Machine Operator ID - AAHAMIDPOCT-GLUCOSE [id number] 07:32:00 Test Item Value Reference Range Interpretation Comments POC-GLUCOSE METER 171 mg/dL 70-110 H : TESTED A T [facility] [address] (BEAKER) (test code = [place], 1538) [address]: Lay Out Machine Operator/Techni juliano ID = [id number] for ABDIAS PENNY [id number] 13:42:00 Test Item Value Reference Range Interpretation Comments CREATININE (BEAKER) 0.99 mg/dL 0.57-1.25 (test code = 358) EGFR (BEAKER) (test INSUFFIC IENT CLINICAL code = 1092) DATA TO CALCULA TE ESTIMATED GFR. Lay Out Machine Operator ID - JESSICA [id number] 13:40:00 Test Item Value Reference Range Interpretation Comments SODIUM (BEAKER) (test code = 381) 142 meq/L 136-145 POTASSIUM (BEAKER) (test code = 3.4 meq/L 3.5-5.1 L 379) CHLORIDE (BEAKER) (test code = 382) 111 meq/L 98-107 H CO2 (BEAKER) (test code = 355) 22 meq/L 22-29 Lay Out Machine Operator ID - JESSICA CCBC (HEMOGRAM [...] 0-0 (BEAKER) (test code = 413) POCT-GLUCOSE [id number] 08:14:00 Test Item Value Reference Range Interpretation Comments POC-GLUCOSE METER 138 mg/dL 70-110 H : TESTED A T [facility] [address] (BEAKER) (test code [facility], = 1538) [address]: Lay Out Machine Operator/Techni juliano ID = [id number] for JORD AN, LACRYSTAL SARS-COV2/RT-PCR ([facility])2020-03-14 18:25:00 Test Item Value Reference Range Interpretation Comments SARS-COV2/RT-PCR (test Negative Not Detected, Negative, code = 4278105) See external report for linked test SARS-COV-[address] [facility] (test code = 3055511) Negative result for this test determines that [...] 564(g) of the Act.Fact Sheet for Healthcare Providers:https://www.[employer]/sites/default/files/product/documents/Fact_Shee f_GH_Rxpdowgjq_Rzbp_TOPH-WgV-8.pdfFact Sheet for Healthcare Patients:https://www.[employer]/sites/default/files/product/ documents/Ltmn_Rropu_Uztoizax_Mbey_HPXA-HdJ-8.pdfPerforming Laboratory:[facility], [place] [address]GPXFA METABOLIC PANEL 2020-03-14 12:12:00 Test Item Value [...] 1092) DATA TO CALCULA TE ESTIMATED GFR. Lay Out Machine Operator ID - YESI FPROTHROMBIN TIME/[id number] 12:05:00 Test Item Value Reference Range Interpretation [...] mechanical heart valves.CBC W/PLT COUNT & AUTO [id number] 11:49:00 Test Item Value Reference Range Interpretation [...] PERCENT (BEAKER) (test code = 2801) HEMOGLOBIN [id number] 21:46:00 Test Item Value Reference Range Interpretation Comments HEMOGLOBIN A1C (BEAKER) (test code = 7.2 % 4.3-6.1 H 368) T4, [id number] 13:56:00 Test Item Value Reference Range Interpretation Comments FREE T4 (BEAKER) (test code = 655) 0.77 ng/dL 0.70-1.48 TSH/FREE T4 IF [id number] 07:57:00 Test Item Value Reference Range Interpretation Comments THYROID STIMULATING HORMONE 7.16 uIU/mL 0.35-4.94 H (BEAKER) (test code = 772) CBC W/PLT COUNT & AUTO [id number] 07:33:00 Test Item Value Reference Range Interpretation [...] (BEAKER) (test code = 2801) BASIC METABOLIC [id number] 07:28:00 Test Item Value Reference Range Interpretation [...] m DATA TO CALCULA TE ESTIMATED GFR. [id number] 07:19:00 Test Item Value Reference Range Interpretation Comments PHOSPHORUS (BEAKER) (test code = 2.4 mg/dL 2.3-4.7 604) [id number] 07:19:00 Test Item Value Reference Range Interpretation Comments MAGNESIUM (BEAKER) (test code = 2.1 mg/dL 1.6-2.6 627) LIPID [id number] 07:19:00 Test Item Value Reference Range Interpretation [...] Borderline 130-159 High 160-189 Very High >=190CALCIUM, [id number] 06:36:00 Test Item Value Reference Range Interpretation Comments CALCIUM IONIZED (BEAKER) (test 1.02 mmol/L 1.12-1.27 L code = 698) PH, BLOOD (BEAKER) (test code = 7.43 1810) CREATINE KINASE (CK), TOTAL AND [id number] 00:37:00 Test Item Value Reference Range Interpretation Comments CREATINE KINASE TOTAL (BEAKER) 180 U/L 29-200 (test code = 380) CREATINE KINASE-MB (BEAKER) (test 1.9 ng/mL 0.0-6.6 code = 750) CREATINE KINASE-MB INDEX (BEAKER) 1.1 % (test code = 395) Effective 04/13/2014: CK-MB Reference Range ChangeNew: 0.0-6.6 Previous: 0.0-4.9CK-MB Reference Range:<6.7 Normal6.7-10.0 Borderline>10.0 AbnormalCREATINE KINASE (CK), TOTAL AND [id number] 15:57:00 Test Item Value Reference Range Interpretation Comments CREATINE KINASE TOTAL (BEAKER) 183 U/L 29-200 (test code = 380) CREATINE KINASE-MB (BEAKER) (test 2.0 ng/mL 0.0-6.6 code = 750) CREATINE KINASE-MB INDEX (BEAKER) 1.1 % (test code = 395) Effective 04/13/2014: CK-MB Reference Range ChangeNew: 0.0-6.6 Previous: 0.0-4.9CK-MB Reference Range:<6.7 Normal6.7-10.0 Borderline>10.0 Abnormal
[2021-05-06] MEDS ORDERED: FUROSEMIDE 40 MG/4 ML VIAL ONE (07:45)
[2021-05-06 08:03] LABS: Protime INR 1.09
[2021-05-06 08:04] LABS: Absolute Lymphocytes (CBC) 1.2 K/uL (0.7-4.9); Basophils % 0.2 % (0-1.3); Hematocrit 38.4 % (39.6-49.0); Lymphocytes % 14.3 % (15.3-44.8); RBC Red Blood Cell Count 4.99 M/uL (4.33-5.43)
[2021-05-06 08:17] LABS: Albumin 3.2 g/dL (3.4-5.0); Bilirubin Direct 0.2 mg/dL (0-0.2); Bilirubin Total 0.5 mg/dL (0.2-1.0); Magnesium 2.1 mg/dL (1.8-2.4); Potassium 3.2 mmol/L (3.5-5.1); Protein, Total 8.4 g/dL (6.4-8.2); Troponin (Emerg Dept Use Only) 0.08 ng/mL (0.0-0.045)
[2021-05-06 08:22] LABS: Urine Blood Trace-intact (Negative); Urine Glucose Negative (Negative); Urine Protein Negative (Negative)
--- NOTE | 2021-05-06 08:47 | RAD REPORT ---
EXAM DESCRIPTION: RAD - Chest Single View - 05/06/2021 8:35 am CLINICAL HISTORY: CONGESTION COMPARISON: Chest Single View dated 05/02/2021; Chest Single View dated 04/30/2021; Chest Pa And Lat ( 2 Views) dated 03/04/2020; Chest Single View dated 12/25/2016 FINDINGS: Lines: None. Lungs: No evidence of edema or pneumonia. Pleural: No significant pleural effusions or pneumothorax. Cardiac: Mild cardiomegaly. Bones: No acute fractures. Other: IMPRESSION: No acute cardiopulmonary disease.
--- NOTE | 2021-05-06 09:16 | EDPHYS ---
Physician Documentation [facility] Name: Eddie Gunn Age: 81 yrs Sex: Male : 1940 Arrival Date: 05/06/2021 Time: 07:25 Bed 7 Private MD: [facility] ED Physician Margy Floyd HPI: 05/06 07:45 This 81 yrs old Male presents to ER via Ambulatory with complaints of Cough, ma2 Chest Congestion. 07:45 The patient or guardian reports airway noise, cough. Onset: The symptoms/episode ma2 began/occurred gradually, 2 day(s) ago. Severity of symptoms: At their worst the symptoms were moderate, in the emergency department the symptoms are unchanged. Associated signs and symptoms: Pertinent negatives: ear ache, rhinorrhea, sore throat. The patient has experienced similar episodes in the past. Historical: - Allergies: 07:32 No Known Allergies; ss - PMHx: 07:32 Carotid blockage; CVA; Hyperlipidemia; Hypertension; CHF; ss - PSHx: 07:32 hernia; ss - Immunization history:: Client reports receiving the 2nd dose of the Covid vaccine. - Social history:: Smoking status: Patient denies any tobacco usage or history of. Patient/guardian denies using alcohol, street drugs, The patient lives with family. - Family history:: not pertinent. ROS: 07:45 Constitutional: Negative for fever, chills, and weight loss. ma2 07:45 All other systems are negative. Exam: 07:45 Constitutional: This is a well developed, well nourished patient who is awake, alert, ma2 and in no acute distress. Head/Face: Normocephalic, atraumatic. Eyes: Pupils equal round and reactive to light, extra-ocular motions intact. Lids and lashes normal. Conjunctiva and sclera are non-icteric and not injected. Cornea within normal limits. Periorbital areas with no swelling, redness, or edema. ENT: Nares patent. No nasal discharge, no septal abnormalities noted. Tympanic membranes are normal and external auditory canals are clear. Oropharynx with no redness, swelling, or masses, exudates, or evidence of obstruction, uvula midline. Mucous membranes moist. Neck: Trachea midline, no thyromegaly or masses palpated, and no cervical lymphadenopathy. Supple, full range of motion without nuchal rigidity, or vertebral point tenderness. No Meningismus. Chest/axilla: Normal chest wall appearance and motion. Nontender with no deformity. No lesions are appreciated. Cardiovascular: Regular rate and rhythm with a normal S1 and S2. No gallops, murmurs, or rubs. Normal PMI, no JVD. No pulse deficits. Respiratory: bilateral rales, otherwise Lungs have equal breath sounds bilaterally, clear to auscultation and percussion. No rales, rhonchi or wheezes noted. No increased work of breathing, no retractions or nasal flaring. Abdomen/GI: Soft, non-tender, with normal bowel sounds. No distension or tympany. No guarding or rebound. No evidence of tenderness throughout. Back: No spinal tenderness. No costovertebral tenderness. Full range of motion. Skin: Warm, dry with normal turgor. Normal color with no rashes, no lesions, and no evidence of cellulitis. MS/ Extremity: le EDEMA BILAT. pitting 2+ .. Pulses equal, no cyanosis. Neurovascular intact. Full, normal range of motion. Neuro: Awake and alert, GCS 15, oriented to person, place, time, and situation. Cranial nerves II-XII grossly intact. Motor strength 5/5 in all extremities. Sensory grossly intact. Cerebellar exam normal. Normal gait. Vital Signs: 07:30 BP 185 / 74; Pulse 77; Resp 16; Temp 98.1(TE); Pulse Ox 95% on R/A; Weight 86.18 kg; Height 5 ft. 6 in. (167.64 cm); Pain 0/10; 07:45 BP 167 / 71; Pulse 78; Resp 27; Temp 98.6; Pulse Ox 94% ; Pain 0/10; al4 08:15 BP 125 / 69; Pulse 79; Resp 29; Pulse Ox 95% ; al4 08:45 BP 166 / 71; Pulse 81; Resp 24; Pulse Ox 97% ; al4 09:15 BP 119 / 60; Pulse 60; Resp 17; Pulse Ox 93% ; al4 07:30 Body Mass Index 30.67 (86.18 kg, 167.64 cm) MDM: 07:38 Patient medically screened. ma2 07:45 Differential Diagnosis: Bronchitis Influenza Upper Respiratory Infection Sinusitis. ma2 09:13 Data reviewed: vital signs, nurses notes. Counseling: I had a detailed discussion with [facility] the patient and/or guardian regarding: the historical points, exam findings, and any diagnostic results supporting the discharge/admit diagnosis, the presence of at least one elevated blood pressure reading (>120/80) during this emergency department visit, the need for outpatient follow up. Response to treatment: the patient's symptoms have markedly improved after treatment. 09:13 ED course: Patient has chronic CHF, there is no worsening of his lower extremity edema, ma2 pulmonary edema, and no chest pain. He has cough with sputum production yellowish, and chest x-ray is within normal limits work-up is unremarkable. That includes Bnp troponin is mildly elevated however it is at baseline. There is no angina, P at baseline. Or anginal equivalent.. ED course: Patient could be having bronchitis. SPO2 is 97 on room air, patient is comfortable with normal respiratory rate.. 05/06 07:38 Order name: Basic Metabolic Panel; Complete Time: 08:51 ma2 05/06 07:38 Order name: CBC with Diff; Complete Time: 08:51 ma2 05/06 07:38 Order name: LFT's; Complete Time: 08:51 ma2 05/06 07:38 Order name: Magnesium; Complete Time: 08:51 ma2 05/06 07:38 Order name: NT PRO-BNP; Complete Time: 08:51 ma2 05/06 07:38 Order name: PT-INR; Complete Time: 08:51 ma2 05/06 07:38 Order name: Troponin (emerg Dept Use Only); Complete Time: 08:51 ma2 05/06 07:38 Order name: XRAY Chest (1 view); Complete Time: 08:51 ma2 05/06 07:38 Order name: EKG; Complete Time: 07:39 ma2 05/06 07:38 Order name: Cardiac monitoring; Complete Time: 08:06 ma2 05/06 07:38 Order name: EKG - Nurse/Tech; Complete Time: 07:57 ma2 05/06 07:38 Order name: IV Saline Lock; Complete Time: 07:57 ma2 05/06 08:22 Order name: Urine Dipstick-Ancillary; Complete Time: 08:51 EDMS 12/11 07:38 Order name: Labs collected and sent; Complete Time: 07:57 ma2 05/06 07:38 Order name: O2 Per Protocol; Complete Time: 07:57 ma2 05/06 07:38 Order name: O2 Sat Monitoring; Complete Time: 07:57 ma2 05/06 07:38 Order name: Urine Dipstick-Ancillary (obtain specimen); Complete Time: 08:23 ma2 Administered Medications: 07:57 Drug: Lasix (furosemide) 40 mg Route: IVP; Infused Over: 2 mins; Site: right al4 antecubital; 08:57 Follow up: Response: No adverse reaction al4 Disposition Summary: 05/06/21 09:16 Discharge Ordered Location: Home ma2 Condition: Stable ma2 Diagnosis - Cough ma2 Followup: ma2 - With: Compa Dan MD - When: Tomorrow - Reason: If symptoms return, Continuance of care Discharge Instructions: - Discharge Summary Sheet ma2 - Cough, Adult, Vfhm-lt-Hfmo ma2 Forms: - Medication Reconciliation Form ma2 - Thank You Letter ma2 - Antibiotic Education ma2 - Prescription Opioid Use ma2 Prescriptions: - Robitussin Cough and Cold CF - take 200 milligram by ORAL route every 4-6 hours; 20 tablet; Refills: 0, ma2 Product Selection Permitted - Zithromax Z-Onel 250 mg Oral Tablet - take 1 tablet by ORAL route as directed for 5 days Day 1 - take two (2) tablets ma2 one time. Day 2, 3, 4 , 5 take one (1) tablet once daily.; 6 tablet; Refills: 0, Product Selection Permitted - Medrol (Onel) 4 mg Oral Tablets, Dose Pack - take 1 tablet by ORAL route as directed - follow package instructions; 1 ma2 packet; Refills: 0, Product Selection Permitted Signatures: Dispatcher [employer] Melinda Norman RN RN Margy Mathis MD MD nm2 Maxim Butler4
--- NOTE | 2021-05-06 09:16 | ER ---
Nurse's Notes [facility] Name: Eddie Gunn Age: 81 yrs Sex: Male : 1940 Arrival Date: 05/06/2021 Time: 07:25 Bed 7 Private MD: Manuel Pelayo Diagnosis: Cough Presentation: 05/06 07:30 Chief complaint: Patient's son or daughter states: Admitted for CHF and discharged on ss Saturday with Lasix. Daughter reports that patient has a persistent cough and does not seem to be better. Denies fever. Coronavirus screen: Client denies travel out of the [place] in the last 14 days. Ebola Screen: Patient denies exposure to infectious person. Patient denies travel to an Ebola-affected area in the 21 days before illness onset. Initial Sepsis Screen: Does the patient meet any 2 criteria? No. Patient's initial sepsis screen is negative. Does the patient have a suspected source of infection? No. Patient's initial sepsis screen is negative. Risk Assessment: Do you want to hurt yourself or someone else? Patient reports no desire to harm self or others. Onset of symptoms was May 08, 2021. 07:30 Method Of Arrival: Ambulatory ss 07:30 Acuity: LUIS 3 ss Historical: - Allergies: 07:32 No Known Allergies; ss - PMHx: 07:32 Carotid blockage; CVA; Hyperlipidemia; Hypertension; CHF; ss - PSHx: 07:32 hernia; ss - Immunization history:: Client reports receiving the 2nd dose of the Covid vaccine. - Social history:: Smoking status: Patient denies any tobacco usage or history of. Patient/guardian denies using alcohol, street drugs, The patient lives with family. - Family history:: not pertinent. Screenin:31 Abuse screen: Denies threats or abuse. Nutritional screening: No deficits noted. al4 Tuberculosis screening: No symptoms or risk factors identified. Fall Risk No fall in past 12 months (0 pts). IV access (20 points). Ambulatory Aid- None/Bed Rest/Nurse Assist (0 pts). Gait- Normal/Bed Rest/Wheelchair (0 pts) Mental Status- Oriented to own ability (0 pts). Total Vargas Fall Scale indicates No Risk (0-24 pts). Assessment: 08:00 General: Appears uncomfortable, Behavior is calm, cooperative, appropriate for age. al4 Pain: Denies pain. Neuro: Level of Consciousness is awake, alert, obeys commands, Oriented to person, place, time, situation, Appropriate for age. Cardiovascular: Heart tones present Capillary refill < 3 seconds Patient's skin is warm and dry. Edema noted BL lower extremities. Respiratory: Airway is patent Respiratory effort is even, unlabored, Respiratory pattern is regular, tachypnea Breath sounds are clear bilaterally. GI: No signs and/or symptoms were reported involving the gastrointestinal system. : No signs and/or symptoms were reported regarding the genitourinary system. EENT: No signs and/or symptoms were reported regarding the EENT system. Derm: No signs and/or symptoms reported regarding the dermatologic system. Musculoskeletal: No signs and/or symptoms reported regarding the musculoskeletal system. 08:45 Reassessment: No changes from previously documented assessment. Patient and/or family al4 updated on plan of care and expected duration. Pain level reassessed. Patient is alert, oriented x 3, equal unlabored respirations, skin warm/dry/pink. 09:15 Reassessment: No changes from previously documented assessment. Patient and/or family al4 updated on plan of care and expected duration. Pain level reassessed. Patient is alert, oriented x 3, equal unlabored respirations, skin warm/dry/pink. Vital Signs: 07:30 BP 185 / 74; Pulse 77; Resp 16; Temp 98.1(TE); Pulse Ox 95% on R/A; Weight 86.18 kg; ss Height 5 ft. 6 in. (167.64 cm); Pain 0/10; 07:45 BP 167 / 71; Pulse 78; Resp 27; Temp 98.6; Pulse Ox 94% ; Pain 0/10; al4 08:15 BP 125 / 69; Pulse 79; Resp 29; Pulse Ox 95% ; al4 08:45 BP 166 / 71; Pulse 81; Resp 24; Pulse Ox 97% ; al4 09:15 BP 119 / 60; Pulse 60; Resp 17; Pulse Ox 93% ; al4 07:30 Body Mass Index 30.67 (86.18 kg, 167.64 cm) ED Course: 07:25 Patient arrived in ED. am2 07:25 Pelayo, Manuel, DO is Private Physician. am2 07:32 Triage completed. ss 07:32 Arm band placed on right wrist. ss 07:38 Margy Floyd MD is Attending Physician. ma2 07:41 Maxim Butler is Primary Nurse. al4 08:00 Patient has correct armband on for positive identification. Bed in low position. Call al4 light in reach. Side rails up X 1. 08:00 No provider procedures requiring assistance completed. bleeding controlled, No al4 redness/swelling at site. Pressure dressing applied. 08:34 XRAY Chest (1 view) In Process Unspecified. EDMS 09:16 Compa Dan MD is Referral Physician. ma2 Administered Medications: 07:57 Drug: Lasix (furosemide) 40 mg Route: IVP; Infused Over: 2 mins; Site: right al4 antecubital; 08:57 Follow up: Response: No adverse reaction al4 Outcome: 09:16 Discharge ordered by MD. al4 09:34 Discharged to home ambulatory. al4 09:34 Condition: good 09:34 Discharge instructions given to patient, family, Instructed on discharge instructions, follow up and referral plans. medication usage, Demonstrated understanding of instructions, follow-up care, medications. 09:35 Patient left the ED. al4 Signatures: Dispatcher [employer] EDMS Melinda Finnegan RN RN Linda Valentine am2 Margy Floyd MD MD ma2 Ledbetter, Alexis al4 Corrections: (The following items were deleted from the chart) 07:58 07:57 Lasix (furosemide) 40 mg IVP in right antecubital al4 al4 08:53 00:45 BP 167 / 71; Pulse 78bpm; Resp 27bpm; Pulse Ox 94%; Temp 98.6F; Pain 0/10; al4 al4 09:33 09:31 Abuse screen: Denies threats or abuse. al4 al4 09:34 09:16 Discharge ordered by . ma2 al4 09:34 08:00 Discharged to home ambulatory, al4 al4 09:34 08:00 Condition: good al4 al4 09:34 08:00 Discharge instructions given to patient, family, Instructed on discharge al4 instructions, follow up and referral plans. medication usage, Demonstrated understanding of instructions, follow-up care, medications, al4
[2021-05-06 09:51] VITALS: TEMP 98.6
[2021-05-06 09:56] VITALS: BP 119/60; O2SAT 93
== END 2021-05-06 09:35 | disposition home or self-care (01) ==
LOC: ER 07:24
DX: R05.9 Cough, unspecified (principal); E78.5 Hyperlipidemia, unspecified; I11.0 Hypertensive heart disease with heart failure; I50.9 Heart failure, unspecified; Z86.73 Personal history of transient ischemic attack (TIA), and cerebral infarction without residual deficits
CPT/HCPCS: 93005; 85025; 80048; 36415; 83735; 85610; 80076; 81003; 84484; 83880; 71045; 96374; 99283; J1940

== ENCOUNTER 2021-06-06 06:49 | Day surgery (SDC) | payer OTHER ==
[2021-06-02 17:15] LABS: Absolute Lymphocytes (CBC) 1.3 K/uL (0.7-4.9); Hematocrit 38.6 % (39.6-49.0); Lymphocytes % 17.9 % (15.3-44.8); MPV 8.9 fL (7.6-11.3); RBC Red Blood Cell Count 4.82 M/uL (4.33-5.43)
[2021-06-02 17:20] LABS: Protime INR 1.06
[2021-06-02 17:27] LABS: Potassium 3.9 mmol/L (3.5-5.1)
[2021-06-02 18:04] LABS: Anisocytosis 1+; Blood Morphology Comment NOTED (NOT SEEN); Platelet Estimate ADEQ; White Blood Cell Scan OK (OK)
[2021-06-06] MEDS ORDERED: HEPA 1000U/500MLS 1,000 UNIT/500 ML BAG IV ONE (06:53)
[2021-06-06] MEDS ORDERED: NA CHLORIDE 0.9% 500 ML ONE (06:53)
[2021-06-06] MEDS ORDERED: FENTANYL CITR 100 MCG/2 ML ONE (06:54)
[2021-06-06] MEDS ORDERED: MIDAZOLAM HCL 2 MG/2 ML INJ ONE (06:55)
[2021-06-06] MEDS ORDERED: NA CHLORIDE 0.9% 0 ML ONE (06:55)
[2021-06-06] MEDS ORDERED: ATROPINE SULF 1 MG/10 ML SYR IV ONE (06:55)
[2021-06-06] MEDS ORDERED: LIDOCAINE 1% 20 ML MDV ONE (07:00)
[2021-06-06 07:32] VITALS: TEMP 97.9
--- NOTE | 2021-06-06 08:41 | OP ---
Surgeon: Compa Dan MD Immigration Coordinator: Klarissa Gordon. No change in medical therapy for now. Admitted as an outpatient to the medical laboratory technologist on 06/06/2021. He underwent bilateral selective carotid an giogram. Indication: CVD, status post right CEA with severe stenosis on the left side. Procedure In Detail: He was prepped and draped in a routine sterile fashion. Given Versed and fenta nyl for sedation. A 6-Pashto sheath introduced in the right common femoral artery using the Seldinge r technique and 10 cc of Xylocaine. A JR4 catheter was used to selectively cannulate the right commo n carotid and the left common carotid separately. Angiography on both sides showed normal common car otid artery, normal external carotid artery bilaterally. He had a normal right internal carotid abi ry appearing, status post right carotid endarterectomy in 2019. On the left side, he had a 50% ostia l left ICA. There were no complications. Blood Loss: 5 mL. Postoperative Diagnosis: Moderate cerebrovascular disease. Plan: To continue medical therapy. The patient had an angiography in the right groin, which was normal. Angio-Seal was used to close th e case. He will remain in the hospital for 2 hours. He will follow up with me in 2 weeks. Total conscious sedation of 30 minutes. NB/MODL Voice ID: [id number] Report ID: [id number]
[2021-06-06 10:22] VITALS: BP 159/70; O2SAT 97
== END 2021-06-06 10:10 | disposition home or self-care (01) ==
LOC: CCL 06:49
DX: I65.22 Occlusion and stenosis of left carotid artery (principal); I70.213 Atherosclerosis of native arteries of extremities with intermittent claudication, bilateral legs; I11.0 Hypertensive heart disease with heart failure; I50.22 Chronic systolic (congestive) heart failure; E78.2 Mixed hyperlipidemia; I51.7 Cardiomegaly; F03.90 Unspecified dementia, unspecified severity, without behavioral disturbance, psychotic disturbance, mood disturbance, and anxiety; Z20.822 Contact with and (suspected) exposure to COVID-19
CPT/HCPCS: 93005; 85025; 80048; 36415; 85610; 85730; 36222; U0003; C1893; C1760; J2250; J3010; J7040; J1644; J0583

== ENCOUNTER 2022-10-01 16:24 | Emergency (ER) | payer OTHER ==
--- OUTSIDE RECORDS SUMMARY | 2022-10-01 16:28 | XMS REPORT | Continuity of Care Document ---
:1940 Author Organization [facility] t Address [address] [facility] [address] [place] [address] Care Team Providers Name Role Phone Manuel Pelayo Attending Clinician Unavailable TIFFANIE WATT Attending Clinician Unavailable EUGENIA BARBER Attending Clinician Unavailable TIFFANIE WATT Admitting Clinician Unavailable EUGENIA BARBER Admitting Clinician Unavailable Payers Payer Name Policy Type Policy Number Effective Date Expiration Date S hollie MEDICARE A B [id number] 2003 00:00:00 MEDICAID [id number] 2016 [place] 00:[place]00 MEDICARE [id number] 2003 [facility] 00:00:00 [facility] MEDICAID [id number] 2011 [facility] 00:00:00 [facility] Problems Condition Condition Condition Status Onset Resolution Last Treating Co mments Source Name Details Category Date Date Treatment Clinician Date Stenosis Stenosis Disease Active 2019[facility] carotid carotid 00:00: Medical artery artery 00 Center Pre-diabet Pre-diabet Disease Active [facility] 12[facility]28 [facility] 00 [facility] Hypothyroi Hypothyroi Disease Active [facility] d d 12-28 [facility] 00:00: Medical 00 [facility] Stroke Stroke Disease Recurre [facility] 00 Center Carotid Carotid Disease Recurre [facility] artery artery nce 12-28 [facility] disease disease 00:00: Medical 00 Center Hypertensi Hypertensi Disease Active [facility] on on 12-25 [facility] 00[facility] Medical 00 Center Dyslipidem Dyslipidem Disease Active [facility] ia ia 12-25 [facility] Right Right Disease Active [facility] s[facility] sided 12-25 kes weakness weakness 00:00: Medica l 00 Center TIA TIA Disease Active [facility] (transient (transient 12-25 Kristina kes ischemic ischemic 00:00: Medica l attack) attack) 00 Center Cerebrovas 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 congestive Medica l heart Center failure [id number] Acute on Problem Com sat chronic Spirit combined - [facility] systolic St and 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 - [facility] without without St complicati complicati Kristina kes on on Medical Center Hypertensi Hypertensi Problem C ommon ve heart ve heart Spirit failure disease - CHI with heart St failure [facility] Gastroesop Gastroesop Problem C [facility] hageal hageal Spirit reflux reflux - CHI disease disease St without without [facility] esophagiti esophagiti Me dical s s Center Hyperlipid Hyperlipid Problem C [facility] emia emia Spirit - [facility] [id number] Monocytosi Problem Com sat s Spirit - [facility] [id number] Asymptomat Problem Co mmon ic Spirit hypertensi - CHI ve urgency [facility] [id number] Coronary Problem Com mon 107 artery Spirit disease - [facility] [place] [facility] coronary Medical artery of Center [place] heart without angina pectoris [id number] Carotid Problem Commo n occlusion, Spirit bilateral - [facility] [id number] Subclinica Problem Com mon l Spirit hypothyroi - CHI dism [facility] [id number] Body mass Problem Com mon index Spirit (BMI) - CHI 34.0-34.9, [facility] Acquired Acquired Problem Commo n hypothyroi hypothyroi Sp shila dism dism - [facility] [id number] Mixed Problem Common hyperlipid Spirit emia - [facility] [id number] Type 2 [place] [id number] diabetes Spirit mellitus - [facility] with other [facility] kidney Medical complicati Center on [id number] History of Problem Co mmon CVA Spirit (cerebrova - [facility]I scular St accident) [facility] without Medical residual Center deficits [id number] Other Problem Common obesity Spirit due to - [facility]I excess [facility] [id number] Iron Problem Common deficiency Spirit anemia, - [facility] unspecifie d iron [facility] deficiency Medica l anemia Center type [id number] S/P Problem Common carotid Spirit endarterec - CHI alon [facility] [id number] Type 2 Problem Common diabetes Spirit mellitus - [facility] with [facility], Medical without Center long-term current use of insulin Allergies, Adverse Reactions, Alerts Allergy Allergy Status Severity Reaction(s) Onset Inactive Treating Comm ents Source Name Type Date Date Clinician NO KNOWN Allergy Active [facility]GIE S Social History Social Habit Start Date Stop Date Quantity Comments Source History of [facility] - Tobacco Use [facility] Alcohol intake 2020-03-31 2020-03-31 Current drinker KALLIE S t [place] 00:00:00 00:00:00 of alcohol [facility] Center (finding) Alcohol Comment 2016-12-25 2016-12-25 one beer every KALLIE S t [facility] 00:[facility]:00 00:00:00 other weekend Medical Jaylene ter Tobacco use and 2016-12-25 2016-12-25 Sm[address] [facility] exposure 00:00:00 00:00:00 non-user Medical Center Sex Assigned At [birth year] [facility] 00:00:00 00:00:00 Medical Center Smoking Status Start Date Stop Date Source Never Smoker [facility] Medications Ordered Filled Start Stop Current Ordering Indication Dosage Frequency Signature Comments Components Source Medication Medication Date Date Medication? Clinician (SIG) Name Name Nicolás JamesStyle No BID FreeStyle Lite Test Lite Test 8-16 Lite Test n/s n/s 00:00: n/s 00 FreeStyle FreeStyle 0 No BID FreeStyle Lite Test Lite Test 8-16 Lite Test n/s n/s 00:00: n/s 00 Furosemide Furosemide 2020-05 No 1{table BID Furosemide 40 MG 40 MG 2-13 t} 40 MG 00:00: 00 hydrALAZINE hydrALAZINE 2020-05 No 1{table BID hydrALAZIN HCl 25 MG HCl 25 MG 2-13 t_with_ E HCl 25 00:00: food} MG 00 Furosemide Furosemide 2020-05 No 1{table BID Furosemide 40 MG 40 MG 2-13 t} 40 MG 00:00: 00 hydrALAZINE hydrALAZINE 2020-05 No 1{table BID hydrALAZIN HCl 25 MG HCl 25 MG 2-13 t_with_ E HCl 25 00:00: food} MG 00 Furosemide Furosemide 2020-05 No 1{table BID Furosemide 40 MG 40 MG 2-13 t} 40 MG 00:00: 00 hydrALAZINE hydrALAZINE 2020-05 No 1{table BID hydrALAZIN HCl 25 MG HCl 25 MG 2-13 t_with_ E HCl 25 00:00: food} MG 00 Potassium Potassium 2020-05- No 1{table BID Potassium Chloride ER Chloride ER -06 08- t_with_ Chloride 10 MEQ 10 MEQ 00:00: 00:00 food} ER 10 MEQ 00 :00 Potassium Potassium 2020-05 2022- No 1{table BID Potassium Chloride ER Chloride ER -06 08- t_with_ Chloride 10 MEQ 10 MEQ 00:00: 00:00 food} ER 10 MEQ 00 :00 Potassium Potassium 2020-05- No 1{table BID Potassium Chloride ER Chloride ER -06 08-13 t_with_ Chloride 10 MEQ 10 MEQ 00:00: 00:00 food} ER 10 MEQ 00 :00 Slow Fe 142 Slow Fe 142 2020-05 No 1{table QD Slow Fe (45 Fe) MG (45 Fe) MG 2-02 t} 142 (45 00:00: Fe) MG 00 Slow Fe 142 Slow Fe 142 2020-05 No 1{table QD Slow Fe (45 Fe) MG (45 Fe) MG 2-02 t} 142 (45 00:00: Fe) MG 00 valsartan 2019-05 Yes 320mg QD Take [address] (DIOVAN) 1-05 mg by [facility] 320 MG 13:29: mouth Medical tablet 39 daily. [facility] valsartan 2019-05 Yes 320mg QD Take [address] (DIOVAN) 1-05 mg by [facility] 320 MG 13:29: mouth Medical tablet 39 daily. [facility] clopidogrel 2019-05 Yes 75mg QD Take [address] (PLAVIX) 75 1-05 by mouth Luke s mg tablet 13:28: daily. Medica l 10 [facility] clopidogrel 2019-05 Yes 75mg QD Take [address] (PLAVIX) 75 1-05 by mouth Luke s mg tablet 13:28: daily. Medica l 10 [facility] atorvastati 2019-05 Yes hyperlipide 40mg QD Take [address] n (LIPITOR) 1-05 lizeth by mouth Luke s 40 MG 13:28: daily. Medical tablet [address] [place] [address] aspirin 81 2019-05 Yes 81mg QD Take [address] MG EC 1-05 by mouth [facility] tablet 13:28: daily. Medical [address] [place] [address] levothyroxi 2019-05 Yes 25ug Take [address] ne 1-05 mcg by [facility]ukes (SYNTHROID, 13:28: mouth Medic al LEVOTHROID) 06 Every Center 25 MCG morning on tablet an empty stomach. atorvastati 2019-05 Yes hyperlipide 40mg QD Take [address] n (LIPITOR) 1-05 lizeth by mouth Luke s 40 MG 13:28: daily. Medical tablet [address] [place] [address] aspirin 81 2019-05 Yes 81mg QD Take [address] MG EC 1-05 by mouth [facility] tablet 13:28: daily. Medical [address] [place] [address] levothyroxi 2019-05 Yes 25ug Take [address] ne 1-05 mcg by [facility] (SYNTHROID, 13:28: mouth Medic al LEVOTHROID) 06 Every Center 25 MCG morning on tablet an empty stomach. Levothyroxi Levothyroxi Yes Manuel 1 tablet Common ne Sodium ne Sodium 9-02 Pelayo in the Sp shila 00:00: morning on - [facility] [address] stomach [facility] Valsartan Valsartan Yes Manuel 2 tablets Common [place] [facility] Clopidogrel Clopidogrel Yes Manuel 1 tablet Common Bisulfate Bisulfate [place]o Spir it - [facility] Atorvastati Atorvastati Yes Manuel 1 tablet Common n Calcium n Calcium [place] Spir [facility] Metoprolol Metoprolol Yes Manuel 1 tablet Common Succinate Succinate Pelayo Spir it ER ER [facility] Amlodipine Amlodipine Yes Manuel 1 tablet Common Besylate Besylate Pelayo [facility] Aspir-81 Aspir-81 Yes Manuel 1 tablet C ommon Pelayo [facility] Amlodipine Amlodipine Yes Manuel 1 tablet Common [facility] Hydrochloro Yes Manuel 1 tablet Common thiazide thiazide Pel[facility]o in the [facility] morning [facility] Losartan Losartan Yes Manuel 1 tablet C ommon Potassium Potassium Pelayo [facility] amLODIPine amLODIPine No 1{table QD amLODIPine Besylate 10 Besylate 10 t} Besylate MG MG 10 MG Levothyroxi Levothyroxi No Levothyrox ne Sodium ne Sodium ine Sodium 25 MCG 25 MCG 25 MCG Valsartan Valsartan No 1{table QD Valsartan 320 MG 320 MG t} 320 MG Metoprolol Metoprolol No 1{table QD Metoprolol Succinate Succinate t} Succinate ER 200 MG ER 200 MG ER 200 MG Clopidogrel Clopidogrel No Clopidogre Bisulfate Bisulfate l 75 MG 75 MG Bisulfate 75 MG Valsartan Valsartan No Valsartan 320 MG 320 MG 320 MG Atorvastati Atorvastati No Atorvastat n Calcium n Calcium in Calcium 40 MG 40 MG 40 MG Levothyroxi Levothyroxi No QD Levothyrox ne Sodium ne Sodium ine Sodium 50 MCG 50 MCG 50 MCG Clopidogrel Clopidogrel No 1{table QD Clopidogre Bisulfate Bisulfate t} l 75 MG 75 MG Bisulfate 75 MG Atorvastati Atorvastati No 1{table QD Atorvastat n Calcium n Calcium t} in Calcium 40 MG 40 MG 40 MG Slow Fe 142 Slow Fe 142 No 1{table QD Slow Fe (45 Fe) MG (45 Fe) MG t} 142 (45 Fe) MG Clopidogrel Clopidogrel No 1{table QD Clopidogre Bisulfate Bisulfate t} l 75 MG 75 MG Bisulfate 75 MG Atorvastati Atorvastati No 1{table QD Atorvastat n Calcium n Calcium t} in Calcium 40 MG 40 MG 40 MG Valsartan Valsartan No 1{table QD Valsartan 320 MG 320 MG t} 320 MG Aspir-81 81 Aspir-81 81 No 1{table QD Aspir-81 MG MG t} 81 MG metFORMIN metFORMIN No BID metFORMIN HCl ER 750 HCl ER 750 HCl ER 750 MG MG MG Levothyroxi Levothyroxi No QD Levothyrox ne Sodium ne Sodium ine Sodium 50 MCG 50 MCG 50 MCG Metoprolol Metoprolol No 1{table QD Metoprolol Succinate Succinate t} Succinate ER 200 MG ER 200 MG ER 200 MG Slow Fe 142 Slow Fe 142 No 1{table QD Slow Fe (45 Fe) MG (45 Fe) MG t} 142 (45 Fe) MG Clopidogrel Clopidogrel No 1{table QD Clopidogre Bisulfate Bisulfate t} l 75 MG 75 MG Bisulfate 75 MG Atorvastati Atorvastati No 1{table QD Atorvastat n Calcium n Calcium t} in Calcium 40 MG 40 MG 40 MG Valsartan Valsartan No 1{table QD Valsartan 320 MG 320 MG t} 320 MG Aspir-81 81 Aspir-81 81 No 1{table QD Aspir-81 MG MG t} 81 MG metFORMIN metFORMIN No BID metFORMIN HCl ER 750 HCl ER 750 HCl ER 750 MG MG MG Levothyroxi Levothyroxi No QD Levothyrox ne Sodium ne Sodium ine Sodium 50 MCG 50 MCG 50 MCG Metoprolol Metoprolol No 1{table QD Metoprolol Succinate Succinate t} Succinate ER 200 MG ER 200 MG ER 200 MG Slow Fe 142 Slow Fe 142 No 1{table QD Slow Fe (45 Fe) MG (45 Fe) MG t} 142 (45 Fe) MG Clopidogrel Clopidogrel No 1{table QD Clopidogre Bisulfate Bisulfate t} l 75 MG 75 MG Bisulfate 75 MG Atorvastati Atorvastati No 1{table QD Atorvastat n Calcium n Calcium t} in Calcium 40 MG 40 MG 40 MG Valsartan Valsartan No 1{table QD Valsartan 320 MG 320 MG t} 320 MG Aspir-81 81 Aspir-81 81 No 1{table QD Aspir-81 MG MG t} 81 MG metFORMIN metFORMIN No BID metFORMIN HCl ER 750 HCl ER 750 HCl ER 750 MG MG MG Levothyroxi Levothyroxi No QD Levothyrox ne Sodium ne Sodium ine Sodium 50 MCG 50 MCG 50 MCG Metoprolol Metoprolol No 1{table QD Metoprolol Succinate Succinate t} Succinate ER 200 MG ER 200 MG ER 200 MG hydrALAZINE hydrALAZINE No 1{table BID hydrALAZIN HCl 25 MG HCl 25 MG t_with_ E HCl 25 food} MG Aspir-81 81 Aspir-81 81 No 1{table QD Aspir-81 MG MG t} 81 MG Valsartan Valsartan No 1{table QD Valsartan 320 MG 320 MG t} 320 MG Metoprolol Metoprolol No 1{table QD Metoprolol Succinate Succinate t} Succinate ER 200 MG ER 200 MG ER 200 MG Levothyroxi Levothyroxi No QD Levothyrox ne Sodium ne Sodium ine Sodium 50 MCG 50 MCG 50 MCG Furosemide Furosemide No 1{table BID Furosemide 40 MG 40 MG t} 40 MG Potassium Potassium No 1{table BID Potassium Chloride ER Chloride ER t_with_ Chloride 10 MEQ 10 MEQ food} ER 10 MEQ Clopidogrel Clopidogrel No 1{table QD Clopidogre Bisulfate Bisulfate t} l 75 MG 75 MG Bisulfate 75 MG Slow Fe 142 Slow Fe 142 No 1{table QD Slow Fe (45 Fe) MG (45 Fe) MG t} 142 (45 Fe) MG Atorvastati Atorvastati No 1{table QD Atorvastat n Calcium n Calcium t} in Calcium 40 MG 40 MG 40 MG Metoprolol Metoprolol No Metoprolol Succinate Succinate Succinate ER 200 MG ER 200 MG ER 200 MG metFORMIN metFORMIN No BID metFORMIN HCl ER 750 HCl ER 750 HCl ER 750 MG MG MG Valsartan Valsartan No Valsartan 320 MG 320 MG 320 MG Clopidogrel Clopidogrel No Clopidogre Bisulfate Bisulfate l 75 MG 75 MG Bisulfate 75 MG hydrALAZINE hydrALAZINE No 1{table BID hydrALAZIN HCl 25 MG HCl 25 MG t_with_ E HCl 25 food} MG Aspir-81 81 Aspir-81 81 No 1{table QD Aspir-81 MG MG t} 81 MG Valsartan Valsartan No 1{table QD Valsartan 320 MG 320 MG t} 320 MG Metoprolol Metoprolol No 1{table QD Metoprolol Succinate Succinate t} Succinate ER 200 MG ER 200 MG ER 200 MG Levothyroxi Levothyroxi No QD Levothyrox ne Sodium ne Sodium ine Sodium 50 MCG 50 MCG 50 MCG Furosemide Furosemide No 1{table BID Furosemide 40 MG 40 MG t} 40 MG Potassium Potassium No 1{table BID Potassium Chloride ER Chloride ER t_with_ Chloride 10 MEQ 10 MEQ food} ER 10 MEQ Clopidogrel Clopidogrel No 1{table QD Clopidogre Bisulfate Bisulfate t} l 75 MG 75 MG Bisulfate 75 MG Slow Fe 142 Slow Fe 142 No 1{table QD Slow Fe (45 Fe) MG (45 Fe) MG t} 142 (45 Fe) MG Atorvastati Atorvastati No 1{table QD Atorvastat n Calcium n Calcium t} in Calcium 40 MG 40 MG 40 MG Metoprolol Metoprolol No Metoprolol Succinate Succinate Succinate ER 200 MG ER 200 MG ER 200 MG metFORMIN metFORMIN No BID metFORMIN HCl ER 750 HCl ER 750 HCl ER 750 MG MG MG Valsartan Valsartan No Valsartan 320 MG 320 MG 320 MG Clopidogrel Clopidogrel No Clopidogre Bisulfate Bisulfate l 75 MG 75 MG Bisulfate 75 MG Furosemide Furosemide No 1{table BID Furosemide 40 MG 40 MG t} 40 MG Clopidogrel Clopidogrel No 1{table QD Clopidogre Bisulfate Bisulfate t} l 75 MG 75 MG Bisulfate 75 MG Metoprolol Metoprolol No 1{table QD Metoprolol Succinate Succinate t} Succinate ER 200 MG ER 200 MG ER 200 MG Aspir-81 81 Aspir-81 81 No 1{table QD Aspir-81 MG MG t} 81 MG Valsartan Valsartan No 1{table QD Valsartan 320 MG 320 MG t} 320 MG Slow Fe 142 Slow Fe 142 No 1{table QD Slow Fe (45 Fe) MG (45 Fe) MG t} 142 (45 Fe) MG Metoprolol Metoprolol No Metoprolol Succinate Succinate Succinate ER 200 MG ER 200 MG ER 200 MG Potassium Potassium No Potassium Chloride ER Chloride ER Chloride 10 MEQ 10 MEQ ER 10 MEQ Levothyroxi Levothyroxi No Levothyrox ne Sodium ne Sodium ine Sodium 50 MCG 50 MCG 50 MCG hydrALAZINE hydrALAZINE No 1{table BID hydrALAZIN HCl 25 MG HCl 25 MG t_with_ E HCl 25 food} MG Clopidogrel Clopidogrel No Clopidogre Bisulfate Bisulfate l 75 MG 75 MG Bisulfate 75 MG Atorvastati Atorvastati No Atorvastat n Calcium n Calcium in Calcium 40 MG 40 MG 40 MG Valsartan Valsartan No Valsartan 320 MG 320 MG 320 MG metFORMIN metFORMIN No metFORMIN HCl ER 750 HCl ER 750 HCl ER 750 MG MG MG Metoprolol Metoprolol No Metoprolol Succinate Succinate Succinate ER 200 MG ER 200 MG ER 200 MG metFORMIN metFORMIN No metFORMIN HCl ER 750 HCl ER 750 HCl ER 750 MG MG MG Potassium Potassium No Potassium Chloride ER Chloride ER Chloride 10 MEQ 10 MEQ ER 10 MEQ Levothyroxi Levothyroxi No QD Levothyrox ne Sodium ne Sodium ine Sodium 50 MCG 50 MCG 50 MCG Clopidogrel Clopidogrel No Clopidogre Bisulfate Bisulfate l 75 MG 75 MG Bisulfate 75 MG Potassium Potassium No 1{table BID Potassium Chloride ER Chloride ER t_with_ Chloride 10 MEQ 10 MEQ food} ER 10 MEQ Valsartan Valsartan No Valsartan 320 MG 320 MG 320 MG Slow Fe 142 Slow Fe 142 No 1{table QD Slow Fe (45 Fe) MG (45 Fe) MG t} 142 (45 Fe) MG metFORMIN metFORMIN No BID metFORMIN HCl ER 750 HCl ER 750 HCl ER 750 MG MG MG hydrALAZINE hydrALAZINE No 1{table BID hydrALAZIN HCl 25 MG HCl 25 MG t_with_ E HCl 25 food} MG hydrALAZINE hydrALAZINE No hydrALAZIN HCl 25 MG HCl 25 MG E HCl 25 MG Valsartan Valsartan No 1{table QD Valsartan 320 MG 320 MG t} 320 MG Furosemide Furosemide No 1{table BID Furosemide 40 MG 40 MG t} 40 MG Clopidogrel Clopidogrel No 1{table QD Clopidogre Bisulfate Bisulfate t} l 75 MG 75 MG Bisulfate 75 MG Aspir-81 81 Aspir-81 81 No 1{table QD Aspir-81 MG MG t} 81 MG Levothyroxi Levothyroxi No Levothyrox ne Sodium ne Sodium ine Sodium 50 MCG 50 MCG 50 MCG Atorvastati Atorvastati No 1{table QD Atorvastat n Calcium n Calcium t} in Calcium 40 MG 40 MG 40 MG Metoprolol Metoprolol No 1{table QD Metoprolol Succinate Succinate t} Succinate ER 200 MG ER 200 MG ER 200 MG Atorvastati Atorvastati No Atorvastat n Calcium n Calcium in Calcium 40 MG 40 MG 40 MG Metoprolol Metoprolol No Metoprolol Succinate Succinate Succinate ER 200 MG ER 200 MG ER 200 MG metFORMIN metFORMIN No metFORMIN HCl ER 750 HCl ER 750 HCl ER 750 MG MG MG Potassium Potassium No Potassium Chloride ER Chloride ER Chloride 10 MEQ 10 MEQ ER 10 MEQ Levothyroxi Levothyroxi No QD Levothyrox ne Sodium ne Sodium ine Sodium 50 MCG 50 MCG 50 MCG Clopidogrel Clopidogrel No Clopidogre Bisulfate Bisulfate l 75 MG 75 MG Bisulfate 75 MG Potassium Potassium No 1{table BID Potassium Chloride ER Chloride ER t_with_ Chloride 10 MEQ 10 MEQ food} ER 10 MEQ Valsartan Valsartan No Valsartan 320 MG 320 MG 320 MG Slow Fe 142 Slow Fe 142 No 1{table QD Slow Fe (45 Fe) MG (45 Fe) MG t} 142 (45 Fe) MG metFORMIN metFORMIN No BID metFORMIN HCl ER 750 HCl ER 750 HCl ER 750 MG MG MG hydrALAZINE hydrALAZINE No 1{table BID hydrALAZIN HCl 25 MG HCl 25 MG t_with_ E HCl 25 food} MG hydrALAZINE hydrALAZINE No hydrALAZIN HCl 25 MG HCl 25 MG E HCl 25 MG Valsartan Valsartan No 1{table QD Valsartan 320 MG 320 MG t} 320 MG Furosemide Furosemide No 1{table BID Furosemide 40 MG 40 MG t} 40 MG Clopidogrel Clopidogrel No 1{table QD Clopidogre Bisulfate Bisulfate t} l 75 MG 75 MG Bisulfate 75 MG Aspir-81 81 Aspir-81 81 No 1{table QD Aspir-81 MG MG t} 81 MG Levothyroxi Levothyroxi No Levothyrox ne Sodium ne Sodium ine Sodium 50 MCG 50 MCG 50 MCG Atorvastati Atorvastati No 1{table QD Atorvastat n Calcium n Calcium t} in Calcium 40 MG 40 MG 40 MG Metoprolol Metoprolol No 1{table QD Metoprolol Succinate Succinate t} Succinate ER 200 MG ER 200 MG ER 200 MG Atorvastati Atorvastati No Atorvastat n Calcium n Calcium in Calcium 40 MG 40 MG 40 MG Metoprolol Metoprolol No Metoprolol Succinate Succinate Succinate ER 200 MG ER 200 MG ER 200 MG metFORMIN metFORMIN No metFORMIN HCl ER 750 HCl ER 750 HCl ER 750 MG MG MG Potassium Potassium No Potassium Chloride ER Chloride ER Chloride 10 MEQ 10 MEQ ER 10 MEQ Valsartan Valsartan No Valsartan 320 MG 320 MG 320 MG Clopidogrel Clopidogrel No Clopidogre Bisulfate Bisulfate l 75 MG 75 MG Bisulfate 75 MG Potassium Potassium No 1{table BID Potassium Chloride ER Chloride ER t_with_ Chloride 10 MEQ 10 MEQ food} ER 10 MEQ Slow Fe 142 Slow Fe 142 No 1{table QD Slow Fe (45 Fe) MG (45 Fe) MG t} 142 (45 Fe) MG metFORMIN metFORMIN No BID metFORMIN HCl ER 750 HCl ER 750 HCl ER 750 MG MG MG hydrALAZINE hydrALAZINE No 1{table BID hydrALAZIN HCl 25 MG HCl 25 MG t_with_ E HCl 25 food} MG hydrALAZINE hydrALAZINE No hydrALAZIN HCl 25 MG HCl 25 MG E HCl 25 MG Levothyroxi Levothyroxi No QD Levothyrox ne Sodium ne Sodium ine Sodium 50 MCG 50 MCG 50 MCG Furosemide Furosemide No 1{table BID Furosemide 40 MG 40 MG t} 40 MG Clopidogrel Clopidogrel No 1{table QD Clopidogre Bisulfate Bisulfate t} l 75 MG 75 MG Bisulfate 75 MG Aspir-81 81 Aspir-81 81 No 1{table QD Aspir-81 MG MG t} 81 MG Levothyroxi Levothyroxi No Levothyrox ne Sodium ne Sodium ine Sodium 50 MCG 50 MCG 50 MCG Atorvastati Atorvastati No 1{table QD Atorvastat n Calcium n Calcium t} in Calcium 40 MG 40 MG 40 MG Metoprolol Metoprolol No 1{table QD Metoprolol Succinate Succinate t} Succinate ER 200 MG ER 200 MG ER 200 MG Atorvastati Atorvastati No Atorvastat n Calcium n Calcium in Calcium 40 MG 40 MG 40 MG Levothyroxi Levothyroxi No Levothyrox ne Sodium ne Sodium ine Sodium 50 MCG 50 MCG 50 MCG Clopidogrel Clopidogrel No Clopidogre Bisulfate Bisulfate l 75 MG 75 MG Bisulfate 75 MG hydrALAZINE hydrALAZINE No hydrALAZIN HCl 25 MG HCl 25 MG E HCl 25 MG Atorvastati Atorvastati No 1{table QD Atorvastat n Calcium n Calcium t} in Calcium 40 MG 40 MG 40 MG metFORMIN metFORMIN No metFORMIN HCl ER 750 HCl ER 750 HCl ER 750 MG MG MG Metoprolol Metoprolol No Metoprolol Succinate Succinate Succinate ER 200 MG ER 200 MG ER 200 MG Valsartan Valsartan No Valsartan 320 MG 320 MG 320 MG metFORMIN metFORMIN No BID metFORMIN HCl ER 750 HCl ER 750 HCl ER 750 MG MG MG Slow Fe 142 Slow Fe 142 No 1{table QD Slow Fe (45 Fe) MG (45 Fe) MG t} 142 (45 Fe) MG Potassium Potassium No Potassium Chloride ER Chloride ER Chloride 10 MEQ 10 MEQ ER 10 MEQ Clopidogrel Clopidogrel No 1{table QD Clopidogre Bisulfate Bisulfate t} l 75 MG 75 MG Bisulfate 75 MG Potassium Potassium No 1{table BID Potassium Chloride ER Chloride ER t_with_ Chloride 10 MEQ 10 MEQ food} ER 10 MEQ Atorvastati Atorvastati No Atorvastat n Calcium n Calcium in Calcium 40 MG 40 MG 40 MG Aspir-81 81 Aspir-81 81 No 1{table QD Aspir-81 MG MG t} 81 MG Levothyroxi Levothyroxi No QD Levothyrox ne Sodium ne Sodium ine Sodium 50 MCG 50 MCG 50 MCG hydrALAZINE hydrALAZINE No 1{table BID hydrALAZIN HCl 25 MG HCl 25 MG t_with_ E HCl 25 food} MG Furosemide Furosemide No 1{table BID Furosemide 40 MG 40 MG t} 40 MG Metoprolol Metoprolol No 1{table QD Metoprolol Succinate Succinate t} Succinate ER 200 MG ER 200 MG ER 200 MG Metoprolol Metoprolol No 1{table QD Metoprolol Succinate Succinate t} Succinate ER 200 MG ER 200 MG ER 200 MG metFORMIN metFORMIN No BID metFORMIN HCl ER 750 HCl ER 750 HCl ER 750 MG MG MG Potassium Potassium No 1{table BID Potassium Chloride ER Chloride ER t_with_ Chloride 10 MEQ 10 MEQ food} ER 10 MEQ Metoprolol Metoprolol No Metoprolol Succinate Succinate Succinate ER 200 MG ER 200 MG ER 200 MG Valsartan Valsartan No 1{table QD Valsartan 320 MG 320 MG t} 320 MG metFORMIN metFORMIN No metFORMIN HCl ER 750 HCl ER 750 HCl ER 750 MG MG MG hydrALAZINE hydrALAZINE No 1{table BID hydrALAZIN HCl 25 MG HCl 25 MG t_with_ E HCl 25 food} MG Levothyroxi Levothyroxi No Levothyrox ne Sodium ne Sodium ine Sodium 50 MCG 50 MCG 50 MCG Atorvastati Atorvastati No Atorvastat n Calcium n Calcium in Calcium 40 MG 40 MG 40 MG hydrALAZINE hydrALAZINE No hydrALAZIN HCl 25 MG HCl 25 MG E HCl 25 MG Clopidogrel Clopidogrel No 1{table QD Clopidogre Bisulfate Bisulfate t} l 75 MG 75 MG Bisulfate 75 MG Clopidogrel Clopidogrel No Clopidogre Bisulfate Bisulfate l 75 MG 75 MG Bisulfate 75 MG Valsartan Valsartan No Valsartan 320 MG 320 MG 320 MG Atorvastati Atorvastati No 1{table QD Atorvastat n Calcium n Calcium t} in Calcium 40 MG 40 MG 40 MG Furosemide Furosemide No 1{table BID Furosemide 40 MG 40 MG t} 40 MG Furosemide Furosemide No Furosemide 40 MG 40 MG 40 MG Aspir-81 81 Aspir-81 81 No 1{table QD Aspir-81 MG MG t} 81 MG Slow Fe 142 Slow Fe 142 No 1{table QD Slow Fe (45 Fe) MG (45 Fe) MG t} 142 (45 Fe) MG Potassium Potassium No Potassium Chloride ER Chloride ER Chloride 10 MEQ 10 MEQ ER 10 MEQ Levothyroxi Levothyroxi No QD Levothyrox ne Sodium ne Sodium ine Sodium 50 MCG 50 MCG 50 MCG Aspir-81 81 Aspir-81 81 No 1{table QD Aspir-81 MG MG t} 81 MG Metoprolol Metoprolol No Metoprolol Succinate Succinate Succinate ER 200 MG ER 200 MG ER 200 MG metFORMIN metFORMIN No BID metFORMIN HCl ER 750 HCl ER 750 HCl ER 750 MG MG MG amLODIPine amLODIPine No 1{table QD amLODIPine Besylate 10 Besylate 10 t} Besylate MG MG 10 MG Levothyroxi Levothyroxi No Levothyrox ne Sodium ne Sodium ine Sodium 25 MCG 25 MCG 25 MCG Valsartan Valsartan No 1{table QD Valsartan 320 MG 320 MG t} 320 MG Metoprolol Metoprolol No 1{table QD Metoprolol Succinate Succinate t} Succinate ER 200 MG ER 200 MG ER 200 MG Clopidogrel Clopidogrel No Clopidogre Bisulfate Bisulfate l 75 MG 75 MG Bisulfate 75 MG Valsartan Valsartan No Valsartan 320 MG 320 MG 320 MG Atorvastati Atorvastati No Atorvastat n Calcium n Calcium in Calcium 40 MG 40 MG 40 MG Levothyroxi Levothyroxi No QD Levothyrox ne Sodium ne Sodium ine Sodium 50 MCG 50 MCG 50 MCG Clopidogrel Clopidogrel No 1{table QD Clopidogre Bisulfate Bisulfate t} l 75 MG 75 MG Bisulfate 75 MG Atorvastati Atorvastati No 1{table QD Atorvastat n Calcium n Calcium t} in Calcium 40 MG 40 MG 40 MG Aspir-81 81 Aspir-81 81 No 1{table QD Aspir-81 MG MG t} 81 MG Metoprolol Metoprolol No Metoprolol Succinate Succinate Succinate ER 200 MG ER 200 MG ER 200 MG metFORMIN metFORMIN No BID metFORMIN HCl ER 750 HCl ER 750 HCl ER 750 MG MG MG Immunizations Ordered Immunization Filled Immunization Date Status Commen ts Source Name Name Fluzone Fluzone 2021-04-27 [facility]pleted [facility] Fl[facility]one Fluzone 2021-04-27 Completed [facility]:01:00 - [facility] Fluzone Fluzone 2021-04-27 Completed [facility] 11:01:00 - [facility] Fluzone Fluzone 2021-04-27 Completed [facility] 11[facility]01:00 - [facility] Fluzone Fluzone 2021-04-27 Completed [facility] 11:01:00 - [facility] Fluzone Fluzone 2021-04-27 Completed [facility] 11:01:00 - [facility] Fluzone Fluzone 2021-04-27 Completed [facility] 11:01:00 - [facility] Fluzone Fluzone 2021-04-27 Completed [facility] 11:01:00 - [facility] Fluzone Fluzone 2021-04-27 Completed [facility] 11:01:00 - [facility] Fluzone Fluzone 2021-04-27 Completed [facility] 11:01:00 - [facility] Fluzone Fluzone 2021-04-27 Completed [facility] 11:01:00 - [facility] Fluzone Fluzone 2021-04-27 Completed [facility] 11:01:00 - [facility] Fluzone Fluzone 2021-04-27 Completed [facility] 11:01:00 - [facility] FluAD FluAD 2018-07-28 Completed [facility] 10:15:00 - [facility] FluAD FluAD 2018-07-28 Completed [facility] 10:15:00 - [facility] FluAD FluAD 2018-07-28 Completed [facility] 10:15:00 - [facility] FluAD FluAD 2018-07-28 Completed [facility] 10:15:00 - [facility] FluAD FluAD 2018-07-28 Completed [facility] 10[facility]15:00 - [facility] FluAD FluAD 2018-07-28 Completed [facility] 10[facility]15:00 - [facility] FluAD FluAD 2018-07-28 Completed [facility] 10:15:00 - [facility] FluAD FluAD 2018-07-28 Completed [facility] 10[facility]15:00 - [facility] FluAD FluAD 2018-07-28 Completed [facility] 10:15:00 - [facility] FluAD FluAD 2018-07-28 Completed [facility] 10[facility]15:00 - [facility] FluAD FluAD 2018-07-28 Completed [facility] 10:15:00 - [facility] FluAD FluAD 2018-07-28 Completed [facility] 10:15:00 - [facility] FluAD FluAD 2018-07-28 Completed [facility] 10:15:00 - [facility] FluAD FluAD 2018-07-28 Completed [facility] 00:00:00 - [facility] Vital Signs Vital Name Observation Time Observation Value Comments Source HEIGHT 2020-03-16 08:04:00 167.6 cm WEIGHT 2020-03-16 08:04:00 88.587 kg HEIGHT 2020-03-15 10:51:00 167.6 cm WEIGHT 2020-03-15 10:51:00 90.266 kg height 2022-03-07 13:40:00 65 [in_i] [facility] weight 2022-03-07 13:40:00 204.8 [lb_av] [facility] temperature 2022-03-07 13:40:00 97.4 [degF] [facility] bmi 2022-03-07 13:40:00 34.08 kg/m2 [facility] oximetry 2022-03-07 13:40:00 98 % [facility] respiratory rate 2022-03-07 13:40:00 18 /min Comm on [facility] blood pressure 2022-03-07 13:40:00 138 mm[Hg] Common [facility] - systolic [facility] blood pressure 2022-03-07 13:40:00 76 mm[Hg] Common [facility] - diastolic [facility] height 2021-11-02 14:40:00 65 [in_i] [facility] weight 2021-11-02 14:40:00 190.5 [lb_av] Common [facility] temperature 2021-11-02 14:40:00 99.0 [degF] Common [facility] bmi 2021-11-02 14:40:00 31.7 kg/m2 [facility] oximetry 2021-11-02 14:40:00 97 % [facility] respiratory rate 2021-11-02 14:40:00 17 /min Comm on [facility] blood pressure 2021-11-02 14:40:00 135 mm[Hg] Common [facility] - systolic [facility] blood pressure 2021-11-02 14:40:00 82 mm[Hg] Common [facility] - diastolic [facility] height 2021-07-04 10:40:00 65 [in_i] Common [facility] weight 2021-07-04 10:40:00 189.5 [lb_av] Common [facility] temperature 2021-07-04 10:40:00 98.0 [degF] Common [facility] bmi 2021-07-04 10:40:00 31.53 kg/m2 [facility] oximetry 2021-07-04 10:40:00 97 % Common [facility] respiratory rate 2021-07-04 10:40:00 17 /min Comm on [facility] blood pressure 2021-07-04 10:40:00 137 mm[Hg] Common [facility] - systolic [facility] blood pressure 2021-07-04 10:40:00 78 mm[Hg] [facility] height 2021-07-04 10:10:00 65 [in_i] Common [facility] weight 2021-07-04 10:10:00 189.5 [lb_av] Common [facility] temperature 2021-07-04 10:10:00 98.0 [degF] Common [facility] bmi 2021-07-04 10:10:00 31.53 kg/m2 Common [facility] oximetry 2021-07-04 10:10:00 97 % Common [facility] respiratory rate 2021-07-04 10:10:00 17 /min Comm on [facility] blood pressure 2021-07-04 10:10:00 137 mm[Hg] Common [facility] - systolic [facility] blood pressure 2021-07-04 10:10:00 78 mm[Hg] Common [facility] - diastolic [facility] height 2021-05-08 14:30:00 65 [in_i] Common [facility] weight 2021-05-08 14:30:00 192.9 [lb_av] [facility] temperature 2021-05-08 14:30:00 98.1 [degF] Common [facility] bmi 2021-05-08 14:30:00 32.1 kg/m2 Common [facility] oximetry 2021-05-08 14:30:00 96 % Common [facility] respiratory rate 2021-05-08 14:30:00 17 /min Comm on [facility] blood pressure 2021-05-08 14:30:00 133 mm[Hg] Common [facility] - systolic [facility] blood pressure 2021-05-08 14:30:00 72 mm[Hg] Common [facility] - diastolic [facility] height 2021-04-27 10:50:00 65 [in_i] [facility] weight 2021-04-27 10:50:00 204.7 [lb_av] [facility] temperature 2021-04-27 10:50:00 97.3 [degF] [facility] bmi 2021-04-27 10:50:00 34.06 kg/m2 [facility] oximetry 2021-04-27 10:50:00 96 % [facility] respiratory rate 2021-04-27 10:50:00 16 /min Comm on [facility] blood pressure 2021-04-27 10:50:00 134 mm[Hg] [facility] systolic [facility] blood pressure 2021-04-27 10:50:00 82 mm[Hg] [facility] diastolic [facility] HEIGHT 2020-03-31 13:18:00 167.6 cm WEIGHT 2020-03-31 13:18:00 91.173 kg HEIGHT 2020-03-16 08:04:00 167.6 cm WEIGHT 2020-03-16 08:04:00 88.587 kg HEIGHT 2020-03-15 10:51:00 167.6 cm WEIGHT 2020-03-15 10:51:00 90.266 kg HEIGHT 2020-03-14 08:37:00 167.6 cm WEIGHT 2020-03-14 08:37:00 90.266 kg HEIGHT 2020-03-14 08:37:00 167.6 cm WEIGHT 2020-03-14 08:37:00 90.266 kg Procedures This patient has no known procedures. Plan of Care Planned Activity Planned Date Details Comments Source Future Scheduled 2023-01-[address] [facility] 00:00:00 (Season Ended) [code = [facility] al Center INFLUENZA VACCINE (Season Ended)] Future Scheduled 2022-05-[address] [facility] Test 00:00:00 (12+) [code = Medical Center DEPRESSION SCREENING (12+)] Future Scheduled 2022-05-27 FALLS RISK SCREENING [facility] Test 00:00:00 [code = FALLS RISK Medical C enter SCREENING] Future Scheduled 2022-05-[address] [facility] Test 00:00:00 (12+) [code = Medical Center DEPRESSION SCREENING (12+)] Future Scheduled 2022-05-27 FALLS RISK SCREENING [facility] Test 00:00:00 [code = FALLS RISK Medical C enter SCREENING] Future Scheduled 2022-01-25 INFLUENZA VACCINE (#1) [facility]:00 [code = INFLUENZA Medical Ce nter VACCINE (#1)] Future Scheduled 2021-03-[address] [facility] Test 00:00:00 Counseling and Medical Cente r Screening (12+) [code = Tobacco Cessation Counseling and Screening (12+)] Future Scheduled 2021-03-[address] [facility] Test 00:00:00 Counseling and Medical Cente r Screening (12+) [code = Tobacco Cessation Counseling and Screening (12+)] Future Scheduled 2004-12-[address] [facility] 00:00:00 WELLNESS (YEAR 2 or Medical Center FIRST YEAR if no IPPE) [code = MEDICARE ANNUAL WELLNESS (YEAR 2 or FIRST YEAR if no IPPE)] Future Scheduled 2004-12-[address] [facility] 00:00:00 WELLNESS (YEAR 2 or Medical Center FIRST YEAR if no IPPE) [code = MEDICARE ANNUAL WELLNESS (YEAR 2 or FIRST YEAR if no IPPE)] Future Scheduled 2004-01-06 PNEUMOCOCCAL 65+ YRS [facility] Test 00:00:00 (1 - PCV) [code = Medical Ce nter PNEUMOCOCCAL 65+ YRS (1 - PCV)] Future Scheduled 2004-01-06 PNEUMOCOCCAL 65+ YRS [facility] Test 00:00:00 (1 - PCV) [code = Medical Ce nter PNEUMOCOCCAL 65+ YRS (1 - PCV)] Future Scheduled 1989 SHINGLES VACCINES ([address] [facility] 00:00:00 of 2) [code = SHINGLES Medic al Center VACCINES (1 of 2)] Future Scheduled 1989 SHINGLES VACCINES ([address] [facility] 00:00:00 of 2) [code = SHINGLES Medic al Center VACCINES (1 of 2)] Future Scheduled 1958 DTAP/TDAP/TD [facility]ACCINES [facility] 00:00:00 (1 - Tdap) [code = Medical C enter DTAP/TDAP/TD VACCINES (1 - Tdap)] Future Scheduled 1958 DTAP/TDAP/TD VACCINES [facility] 00:00:00 (1 - Tdap) [code = Medical C enter DTAP/TDAP/TD VACCINES (1 - Tdap)] Future Scheduled 1939 COVID-19 VACCINE (#1) [facility] 00:00:00 [code = COVID-[address] VACCINE (#1)] Future Scheduled 1939 COVID-19 VACCINE (#1) [facility] 00:00:00 [code = COVID-[address] VACCINE (#1)] Encounters Start End Encounter Admission Attending Care Care Encounter Source Date/Time Date/Time Type Type Clinicians Facility Department ID 2022-07-04 Outpatient Pelayo, STLMLC STLMLC [id number] Common 09:53:00 Manuel [id number] [facility] 2022-06-11 Outpatient Pelayo, STLMLC STLMLC [id number] Common 15:34:00 Manuel [id number] [facility] 2021-06-21 Outpatient Pelayo, STLMLC STLMLC [id number] Common 14:07:35 Manuel [id number] [facility] 2021-06-21 Outpatient Pelayo, STLMLC STLMLC [id number] Common 13:33:19 Manuel [id number] [facility] 2021-06-21 Outpatient Pelayo, STLMLC STLMLC [id number] Common 12:28:44 Manuel [id number] [facility] 2021-06-21 Outpatient Pelayo, STLMLC STLMLC [id number] Common 12:27:10 Manuel [id number] [facility] 2021-06-21 Outpatient Pelayo, STLMLC STLMLC [id number] Common 11:59:52 Manuel [id number] [facility] 2021-06-21 Outpatient Pelayo, STLMLC STLMLC [id number] Common 11:42:41 Manuel [id number] [facility] 2021-06-21 Outpatient Pelayo, STLMLC STLMLC [id number] Common 11:41:00 Manuel [id number] [facility] 2021-06-21 Outpatient Pelayo, STLMLC STLMLC [id number] Common 11:24:33 Manuel [id number] [facility] 2021-06-21 Outpatient Pelayo, STLMLC STLMLC [id number] Common 11:11:08 Manuel [id number] [facility] 2021-06-21 Outpatient Pelayo, STLMLC STLMLC [id number] Common 11:07:23 Manuel [id number] [facility] 2021-03-01 Inpatient BRAD, [facility] Surgery [id number] [facility] 10:47:23 TIFFANIE 2022-03-07 2022-03-07 OFFICE STLMLC STLMLC [id number] Co mmon 00:00:00 00:00:00 VISIT [facility] PT - CHI LEVEL 4 [facility] 2022-01-03 2022-01-03 (TEL) STLMLC STLMLC [id number] Co mmon 00:00:00 00:00:00 [facility] 2022-01-02 2022-01-02 (TEL) STLMLC STLMLC [id number] Co mmon 00:00:00 00:00:00 [facility] 2021-12-08 2021-12-08 (TEL) STLMLC STLMLC [id number] Co mmon 00:00:00 00:00:00 [facility] 2021-11-02 2021-11-02 OFFICE STLMLC STLMLC [id number] Co mmon 00:00:00 00:00:00 VISIT [facility] PT - CHI LEVEL 4 [facility] 2021-08-28 2021-08-28 (TEL) STLMLC STLMLC [id number] Co mmon 00:00:00 00:00:00 [facility] 2021-07-04 2021-07-04 OFFICE STLMLC STLMLC [id number] Co mmon 00:00:00 00:00:00 VISIT [facility] PT - CHI LEVEL 4 [facility] 2021-07-04 2021-07-04 SUB ANNUAL STLMLC STLMLC [id number] Common 00:00:00 00:00:00 MCR [facility] WELLNESS - [facility] VISIT [facility] 2021-05-08 2021-05-08 (TEL) STLMLC STLMLC [id number] Co mmon 00:00:00 00:00:00 [facility] 2021-05-08 2021-05-08 (HOSP F/U) STLMLC STLMLC [id number] Common 00:00:00 00:00:00 [facility] 2021-05-04 2021-05-04 (TEL) STLMLC STLMLC [id number] Co mmon 00:00:00 00:00:00 [facility] 2021-05-03 2021-05-03 (TEL) STLMLC STLMLC [id number] Co mmon 00:00:00 00:00:00 [facility] 2021-04-27 2021-04-27 OFFICE STLMLC STLMLC [id number] Co mmon 00:00:00 00:00:[address] [facility] LEVEL 4 [facility] 2020-12-27 2020-12-27 Outpatient STLMLC STLMLC [id number] Common 00:00:00 00:00:00 [facility] 2020-09-27 2020-09-27 Outpatient STLMLC STLMLC [id number] Common 00:00:00 00:00:00 [facility] 2020-06-30 2020-06-30 Outpatient STLMLC STLMLC [id number] Common 00:00:00 00:00:00 [facility] 2020-06-30 2020-06-30 Outpatient STLMLC STLMLC [id number] Common 00:00:00 00:00:00 [facility] 2020-06-06 2020-06-06 Outpatient STLMLC STLMLC [id number] Common 00:00:00 00:00:00 [facility] 2020-04-04 2020-04-04 Outpatient STLMLC STLMLC [id number] Common 00:00:00 00:00:00 [facility] 2020-04-01 2020-04-01 Outpatient STLMLC STLMLC [id number] Common 00:00:00 00:00:00 [facility] 2020-03-31 2020-03-31 Outpatient EL BRAD, [facility] [id number] [facility] 00:00:00 00:00:00 TIFFANIE 2020-03-23 2020-03-23 Outpatient STLMLC STLMLC [id number] Common 00:00:00 00:00:00 [facility] 2020-03-15 2020-03-15 Outpatient EL [facility]H [facility] [id number] [facility] 00:00:00 00:00:00 2020-03-14 2020-03-14 Outpatient EL BRAD, [facility] [id number] [facility] 00:00:00 00:00:00 TIFFANIE 2020-03-14 2020-03-14 Outpatient EL BRAD, [facility] [id number] [facility] 00:00:00 00:00:00 TIFFANIE 2020-03-11 2020-03-11 Outpatient EL BRAD, [facility] [id number] [facility] 00:00:00 00:00:00 TIFFANIE 2020-01-27 2020-01-27 [facility] [id number] Common 08:40:00 08:40:[address] [facility] 2019-10-27 2019-10-27 [facility] [id number] Common 16:00:00 16:00:[address] [facility] 2019-10-27 2019-10-27 [facility] [id number] Common 08:15:00 08:15:[address] [facility] 2019-07-27 2019-07-27 [facility] [id number] Common 08:45:00 08:45:[address] [facility] 2019-04-09 2019-04-09 [facility] [id number] Common 09:30:00 09:30:[address] [facility] 2018-12-08 2018-12-08 Outpatient Sara Cross [id number] Common 09:30:00 09:30:00 t [employer] [address] [facility] 2018-07-28 2018-07-28 Outpatient Sara Cross [id number] Common 09:45:00 09:45:00 [address] [employer] [facility] it Drive [facility] Results Test Description Test Time Test Comments Results Result Sourc e Comments TISSUE EXAM 2020-03-21 Surgical Pathology 14:09:00 Report Case: [id number] Authorizing Provider: Tiffanie Watt MD Collected: 03/16/2020 12:32 PM Ordering Location: [facility] Received: 03/16/2020 01:28 PM PERIOPERATIVE SERVICES Pathologist: Chetan Francis MD Specimen: Plaque, Carotid Artery Plaque ARTERY, RIGHT CAROTID, ENDARTERECTOMY:CALCIFI C ATHEROSCLEROTIC PLAQUE Signing Pathologist Direct Phone Line: [phone] ally signed by Chetan Francis MD on 03/21/2020 at 2:09 [id number]; [id number] stenosis, rightCarotid artery plaqueA. Received fresh labeled with the patient's name, medical record number and "plaque" is a previously incised tubular portion of yellow-kilpatrick plaque measuring 3.5 cm in length and ranging 0.6-0.8 cm in diameter. The specimen is serially sectioned to reveal calcifications measuring up to 0.3 cm in thickness. Boating Safety Officer sections are submitted in A1, following decalcification.ALLAN Jackson PA (ASCP)cmPerformed POCT-GLUCOSE METER 2020-03-17 12:05:00 Test Item Value Reference Range Interpretation Comme nts POC-GLUCOSE METER (BEAKER) 135 mg/dL 70-110 H : [facility] [address] [facility] (test code = 1538) JANENE Bailey [id number]: Customer Strategy Manager/Techni juliano ID = [id number] for ABDIAS FAULKNER BASIC METABOLIC [id number] 07:45:00 Test Item Value Reference Range Interpretation [...] 1092) DATA TO CALCULA TE ESTIMATED GFR. Customer Strategy Manager ID - RAMONACT-GLUCOSE [id number] 07:32:00 Test Item Value Reference Range Interpretation Comments POC-GLUCOSE METER 171 mg/dL 70-110 H : TESTED A T [facility] (BEAKER) (test code = [place], 1538) [id number]: Customer Strategy Manager/Techni juliano ID = [id number] for ABDIAS PENNY [id number] 13:42:00 Test Item Value Reference Range Interpretation Comments CREATININE (BEAKER) 0.99 mg/dL 0.57-1.25 (test code = 358) EGFR (BEAKER) (test INSUFFIC IENT CLINICAL code = 1092) DATA TO CALCULA TE ESTIMATED GFR. Customer Strategy Manager ID - JESSICA [id number] 13:40:00 Test Item Value Reference Range Interpretation Comments SODIUM (BEAKER) (test code = 381) 142 meq/L 136-145 POTASSIUM (BEAKER) (test code = 3.4 meq/L 3.5-5.1 L 379) CHLORIDE (BEAKER) (test code = 382) 111 meq/L 98-107 H CO2 (BEAKER) (test code = 355) 22 meq/L 22-29 Customer Strategy Manager ID - JESSICA CCBC (HEMOGRAM ONLY)2020-03-16 13:22:00 [...] 0-0 (BEAKER) (test code = 413) POCT-GLUCOSE [id number] 08:14:00 Test Item Value Reference Range Interpretation Comments POC-GLUCOSE METER 138 mg/dL 70-110 H : TESTED [facility] T [facility] [address] ([facility]) (test code [facility], = 1538) 67[address]: Customer Strategy Manager/Techni juliano ID = [id number] for JORD AN, LACRYSTAL SARS-COV2/RT-PCR ([facility])2020-03-14 18:25:00 Test Item Value Reference Range Interpretation Comments SARS-COV2/RT-PCR (test Negative Not Detected, Negative, code = 7582466) See external report for linked test SARS-COV-[address] [facility] (test code = 9922959) Negative result for this test determines that SARS-CoV-2 RNA was not present in the specimen above the Limit of Detection (LOD). However, Negative results do not preclude SARS-CoV-2 infection and should not be used as the sole basis for treatment or patient management decisions. Negative results must be combined with clinical observations, patient history, and [...] a nasopharyngeal swab specimen collected from individuals suspected of COVID-19 by their healthcare provider.This test [...] justifying the authorization of the emergency use ofin vitro diagnostic tests for detection and/or diagnosis of COVID-19 is terminated under Section 564(b)(2) of the Act or the EUA is revoked under Section 564(g) of the Act.Fact Sheet for Healthcare Prov iders:https://www.[employer]/sites/default/files/product/documents/Fact_Sheet_HC _Pouspzyfs_Ijbe_EQTW-QmU-5.pdfFact Sheet for Healthcare Patients:https://www.[employer]/sites/default/files/product/docume nts/Eenr_Dsjtu_Lhscwwgk_Qziy_HOGX-RqE-4.pdfPerforming Laboratory:[address] [address]DJVIG METABOLIC PANEL 2020-03-14 12:12:00 Test Item Value [...] 1092) DATA TO CALCULA TE ESTIMATED GFR. Customer Strategy Manager ID - YESI FPROTHROMBIN TIME/[id number] 12:05:00 Test Item Value Reference Range Interpretation Comments PROTIME (BEAKER) (test code = 14.0 seconds 11.9-14.2 759) INR (BEAKER) (test code = 370) 1.11 <=5.90 Effective 10/22/2018: PT Reference Range ChangeNew: 11.9-14.2 Previous: 11.7- 14.7RECOMMENDED COUMADIN/WARFARIN INR THERAPY RANGESSTANDARD DOSE: 2.0-3.0 Includes: PROPHYLAXIS for venous thrombosis, systemic embolization; TREATMENT for venous thrombosis and/or pulmonary embolus.HIGH RISK: Target INR is 2.5-3.5 for patients wiht mechanical heart valves.CBC W/PLT COUNT & AUTO [id number] 11:49:00 Test Item Value Reference Range Interpretation [...] PERCENT (BEAKER) (test code = 2801) HEMOGLOBIN [id number] 21:46:00 Test Item Value Reference Range Interpretation Comments HEMOGLOBIN A1C (BEAKER) (test code = 7.2 % 4.3-6.1 H 368) T4, [id number] 13:56:00 Test Item Value Reference Range Interpretation Comments FREE T4 (BEAKER) (test code = 655) 0.77 ng/dL 0.70-1.48 TSH/FREE T4 IF [id number] 07:57:00 Test Item Value Reference Range Interpretation Comments THYROID STIMULATING HORMONE 7.16 uIU/mL 0.35-4.94 H (BEAKER) (test code = 772) CBC W/PLT COUNT & AUTO [id number] 07:33:00 Test Item Value Reference Range Interpretation [...] (BEAKER) (test code = 2801) BASIC METABOLIC [id number] 07:28:00 Test Item Value Reference Range Interpretation [...] m DATA TO CALCULA TE ESTIMATED GFR. [id number] 07:19:00 Test Item Value Reference Range Interpretation Comments PHOSPHORUS (BEAKER) (test code = 2.4 mg/dL 2.3-4.7 604) [id number] 07:19:00 Test Item Value Reference Range Interpretation Comments MAGNESIUM (BEAKER) (test code = 2.1 mg/dL 1.6-2.6 627) LIPID [id number] 07:19:00 Test Item Value Reference Range Interpretation Comments TRIGLYCERIDES (BEAKER) (test code = 173 mg/dL 540) CHOLESTEROL (BEAKER) (test code = 115 mg/dL 631) HDL CHOLESTEROL (BEAKER) (test code 35 mg/dL = 976) LDL CHOLESTEROL CALCULATED (BEAKER) 45 mg/dL (test code = 633) Triglyceride Reference Range: Low Risk <150 Borderline 150-199 High Risk 200- 499 Very High Risk >=500Cholesterol Reference Range: Low Risk <200 Borderline 200-239 High Risk >240HDL Cholesterol Reference Range: Low Risk >=60 High Risk <40LDL Cholesterol Reference Range: Optimal <100 Near Optimal 100-129 Borderline 130-159 High 160-189 Very High >=190CALCIUM, [id number] 06:36:00 Test Item Value Reference Range Interpretation Comments CALCIUM IONIZED (BEAKER) (test 1.02 mmol/L 1.12-1.27 L code = 698) PH, BLOOD (BEAKER) (test code = 7.43 1810) CREATINE KINASE (CK), TOTAL AND [id number] 00:37:00 Test Item Value Reference Range Interpretation Comments CREATINE KINASE TOTAL (BEAKER) 180 U/L 29-200 (test code = 380) CREATINE KINASE-MB (BEAKER) (test 1.9 ng/mL 0.0-6.6 code = 750) CREATINE KINASE-MB INDEX (BEAKER) 1.1 % (test code = 395) Effective 04/13/2014: CK-MB Reference Range ChangeNew: 0.0-6.6 Previous: 0.0-4.9CK-MB Reference Range:<6.7 Normal6.7-10.0 Borderline>10.0 Abnormal CREATINE KINASE (CK), TOTAL AND [id number] 15:57:00 Test Item Value Reference Range Interpretation Comments CREATINE KINASE TOTAL (BEAKER) 183 U/L 29-200 (test code = 380) CREATINE KINASE-MB (BEAKER) (test 2.0 ng/mL 0.0-6.6 code = 750) CREATINE KINASE-MB INDEX (BEAKER) 1.1 % (test code = 395) Effective 04/13/2014: CK-MB Reference Range ChangeNew: 0.0-6.6 Previous: 0.0-4.9CK-MB Reference Range:<6.7 Normal6.7-10.0 Borderline>10.0 Abnormal
--- NOTE | 2022-10-01 19:08 | RAD REPORT ---
EXAM DESCRIPTION: RAD - Knee Left 3 View - 10/01/2022 5:08 pm CLINICAL HISTORY: PAIN COMPARISON: No comparisons TECHNIQUE: Left knee, 3 views. FINDINGS: No fracture, dislocation or periosteal reaction.No joint effusion seen. Advanced tricompar tmental osteoarthritic changes, with joint space narrowing most pronounced medially. Vascular calcifi cations. No other soft tissue abnormality. Clinical concerns for internal derangement or occult bony injury could be further assessed with MR im aging. IMPRESSION: No acute osseus abnormality. Tricompartmental osteoarthritic changes.
--- NOTE | 2022-10-01 19:21 | RAD REPORT ---
EXAM DESCRIPTION: US - Extremity Venous Uni Ltd - 10/01/2022 5:23 pm CLINICAL HISTORY: Pain COMPARISON: None. TECHNIQUE: Real-time sonographic evaluation of the left lower extremity deep venous system was perfo rmed. FINDINGS: Normal compressibility, flow augmentation, phasic flow and spontaneous flow is identified in the left lower extremity deep venous system. No intraluminal filling defects seen. Mild edematous changes along the lower leg. Small popliteal fossa cyst measuring 2.2 x 1.4 x 0.9 centimeter. IMPRESSION: No evidence of DVT in the left lower extremity. 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
--- NOTE | 2022-10-01 19:26 | ER ---
Nurse's Notes [facility] – [place], [place] Name: Eddie Gunn Age: 82 yrs Sex: Male : 1940 Arrival Date: 10/01/2022 Time: 16:24 Bed 14 Private MD: Manuel Pelayo Diagnosis: Synovial cyst of popliteal space [Arnett], left knee Presentation: 10/01 16:38 Chief complaint: Patient states: he has been having leg pain that started last night. ap3 at this time he has no pain, however at its worst the pain is a 10. Coronavirus screen: At this time, the client does not indicate any symptoms associated with coronavirus-19. Ebola Screen: No symptoms or risks identified at this time. Initial Sepsis Screen: Does the patient meet any 2 criteria? No. Patient's initial sepsis screen is negative. Does the patient have a suspected source of infection? No. Patient's initial sepsis screen is negative. Risk Assessment: Do you want to hurt yourself or someone else? Patient reports no desire to harm self or others. Onset of symptoms was September 30, 2022. 16:38 Method Of Arrival: Ambulatory ap3 16:38 Acuity: LUIS 4 ap3 Triage Assessment: 16:41 General: Appears in no apparent distress. Behavior is calm, cooperative. Pain: ap3 Complains of pain in left leg Pain currently is 0 out of 10 on a pain scale. at worst was 10 out of 10 on a pain scale. Neuro: Level of Consciousness is awake, alert, obeys commands, Oriented to person, place, time, situation. Cardiovascular: Patient's skin is warm and dry. Respiratory: Airway is patent Respiratory effort is even, unlabored, Respiratory pattern is regular, symmetrical. Historical: - Allergies: 16:39 No Known Allergies; ap3 - PMHx: 16:39 Carotid blockage; CHF; CVA; Hyperlipidemia; Hypertension; ap3 - Immunization history:: Client reports receiving the 2nd dose of the Covid vaccine. - Social history:: Smoking status: Patient denies any tobacco usage or history of. Screenin:41 Abuse screen: Denies threats or abuse. Nutritional screening: No deficits noted. ap3 Tuberculosis screening: No symptoms or risk factors identified. 19:33 [facility] ED Fall Risk Assessment (Adult) Score/Fall Risk Level 0 - 2 = Low Risk. as6 Assessment: 19:23 General: daughter states "he is still in pain. Do you know how much longer it will be? as6 we're ready to leave" pt appears comfortable and NAD. Vital Signs: 16:40 Pulse 63; Resp 17; Temp 98.6; Pulse Ox 97% ; Weight 83.01 kg; Pain 0/10; ap3 16:42 BP 153 / 60; ap3 19:23 BP 199 / 90; Pulse 56; Resp 18 S; Pulse Ox 97% on R/A; as6 16:40 Pain Scale: Adult ap3 ED Course: 16:26 Patient arrived in ED. am2 16:26 Manuel Pelayo DO is Private Physician. am2 16:30 Hilda Edmondson FNP-C [facility]. kb 16:30 Hesham Ta MD is Attending Physician. kb 16:39 Triage completed. ap3 16:42 Arm band placed on right wrist. ap3 17:10 Knee Left 3 View XRAY In Process Unspecified. EDMS 17:25 US Extremity Venous Unilateral Ltd In Process Unspecified. EDMS 19:15 Felix Manzanares, RN is Primary Nurse. as6 19:33 Bed in low position. Call light in reach. Side rails up X 1. Adult w/ patient. as6 19:33 No provider procedures requiring assistance completed. Patient did not have IV access as6 during this emergency room visit. Administered Medications: No medications were administered Medication: 19:33 VIS not applicable for this client. as6 Outcome: 19:26 Discharge ordered by . kb 19:33 Discharged to home ambulatory, with family. as6 19:33 Condition: stable 19:33 Discharge instructions given to patient, family. 19:34 Patient left the ED. as6 Signatures: Dispatcher [employer] EDMS Hilda Edmondson FNP-C FNP-Ckb Moreno, Amanda am2 Linda Merino RN RN ap3 Felix Manzanares, MIKE RN as6
--- NOTE | 2022-10-01 19:26 | EDPHYS ---
Physician Documentation [facility] Name: Eddie Gunn Age: 82 yrs Sex: Male : 1940 Arrival Date: 10/01/2022 Time: 16:24 Bed 14 Private MD: Manuel Pelayo ED Physician Hesham Ta HPI: 10/01 18:51 This 82 yrs old Male presents to ER via Ambulatory with complaints of Leg Pain.kb 18:51 The patient presents with decreased range of motion, pain, tenderness. The complaints kb affect the left knee and posterior aspect of left knee. Context: The problem was sustained at home, resulted from an unknown cause, the patient can fully bear weight, uses a walker. Onset: The symptoms/episode began/occurred last night. Modifying factors: The symptoms are alleviated by nothing. the symptoms are aggravated by movement. Associated signs and symptoms: The patient has no apparent associated signs or symptoms. Treatment prior to arrival includes: no previous treatment. Severity of symptoms: At their worst the symptoms were moderate, in the emergency department the symptoms are unchanged. The patient has not experienced similar symptoms in the past. The patient has not recently seen a physician. Pt reports left knee pain that started last night. Denies injury, trauma or fall. . Historical: - Allergies: 16:39 No Known Allergies; ap3 - PMHx: 16:39 Carotid blockage; CHF; CVA; Hyperlipidemia; Hypertension; ap3 - Immunization history:: Client reports receiving the 2nd dose of the Covid vaccine. - Social history:: Smoking status: Patient denies any tobacco usage or history of. ROS: 18:50 Constitutional: Negative for fever, chills, and weight loss. kb 18:50 MS/extremity: Positive for pain, tenderness, of the posterior aspect of left knee and left knee. 18:50 All other systems are negative. Exam: 18:50 Constitutional: This is a well developed, well nourished patient who is awake, alert, kb and in no acute distress. Head/Face: Normocephalic, atraumatic. ENT: Moist Mucous membranes Cardiovascular: Regular rate and rhythm with a normal S1 and S2. No gallops, murmurs, or rubs. No pulse deficits. Respiratory: Respirations even and unlabored. No increased work of breathing. Talking in full sentences Skin: Warm, dry with normal turgor. Normal color. Neuro: Awake and alert, GCS 15, oriented to person, place, time, and situation. Moves all extremities. Normal gait. 18:50 Musculoskeletal/extremity: Extremities: grossly normal except: noted in the left knee and posterior aspect of left knee: decreased ROM, pain, tenderness, ROM: limited active range of motion due to pain, Circulation is intact in all extremities. Sensation intact. Weight bearing: can bear weight with assistance only, uses walker. Vital Signs: 16:40 Pulse 63; Resp 17; Temp 98.6; Pulse Ox 97% ; Weight 83.01 kg; Pain 0/10; ap3 16:42 BP 153 / 60; ap3 19:23 BP 199 / 90; Pulse 56; Resp 18 S; Pulse Ox 97% on R/A; as6 16:40 Pain Scale: Adult ap3 MDM: 16:31 Patient medically screened. kb 19:22 Data reviewed: vital signs, nurses notes. kb 19:25 Differential diagnosis: closed fracture, tendonitis, dvt, bakers cyst, arthritis. kb Historians other than the Patient: Daughter/Son: daughter. Counseling: I had a detailed discussion with the patient and/or guardian regarding: the historical points, exam findings, and any diagnostic results supporting the discharge/admit diagnosis, radiology results, the need for outpatient follow up, a family practitioner, a orthopedic surgeon, to return to the emergency department if symptoms worsen or persist or if there are any questions or concerns that arise at home. 10/01 16:36 Order name: Knee Left 3 View XRAY; Complete Time: 19:19 kb 10/01 16:36 Order name: US Extremity Venous Unilateral Ltd; Complete Time: 19:22 kb Administered Medications: No medications were administered Disposition Summary: 10/01/22 19:26 Discharge Ordered Location: Home kb Condition: Stable kb Diagnosis - Synovial cyst of popliteal space [Arnett], left knee kb Followup: kb - With: Emergency Department - When: As needed - Reason: Worsening of condition Followup: kb - With: Private Physician - When: 2 - 3 days - Reason: Recheck today's complaints, Continuance of care, Re-evaluation by your physician Discharge Instructions: - Discharge Summary Sheet kb - Arnett Cyst kb Forms: - Medication Reconciliation Form kb - Thank You Letter kb - Antibiotic Education kb - Prescription Opioid Use kb Signatures: [facility]patcher [facility] Hilda Acevedo, SEAWEED HARVESTER-C SEAWEED HARVESTER-Linda Dorado, RN RN ap3
[2022-10-01 20:12] VITALS: TEMP 98.6; O2SAT 97
[2022-10-01 20:15] VITALS: BP 199/90
== END 2022-10-01 19:34 | disposition home or self-care (01) ==
LOC: ER 16:24
DX: M71.22 Synovial cyst of popliteal space [Baker], left knee (principal)
CPT/HCPCS: 93971; 99283

== ENCOUNTER 2023-04-22 15:28 | Inpatient (IN) | payer OTHER ==
--- OUTSIDE RECORDS SUMMARY | 2023-04-22 15:50 | XMS REPORT | Continuity of Care Document ---
:1940 Author Organization [facility] t Address [address] [facility] [address] [place] [address] Care Team Providers Name Role Phone Manuel Pelayo Attending Clinician Unavailable TIFFANIE WATT Attending Clinician Unavailable EUGENIA BARBER Attending Clinician Unavailable TIFFANIE WATT Admitting Clinician Unavailable EUGENIA BARBER Admitting Clinician Unavailable Payers Payer Name Policy Type Policy Number Effective Date Expiration Date S ele MEDICARE A B [id number] 2003 00:00:00 MEDICAID OF [id number] 2016 [place] 00:00:00 MEDICARE [id number] 2003 [facility] NOVITAS 00:00:00 [facility] MEDICAID [id number] 2011 [facility] 00:00:00 [facility] Problems Condition Condition Condition Status Onset Resolution Last Treating Co mments Source Name Details Category Date Date Treatment Clinician Date Stenosis Stenosis Disease Active 2019-05 [facility] right of right 0 [facility] carotid carotid 00:00: Medical artery artery 00 [place] Carotid Carotid Disease Recurre [facility] artery artery nce 12-28 [facility] disease disease 00:00: Medical 00 Center Pre-diabet Pre-diabet Disease Active C [facility] es es 12-28 [facility] 00:00: Medical 00 [place] Hypothyroi Hypothyroi Disease Active [facility] Stroke Stroke Disease Recurre [facility] Hypertensi Hypertensi Disease Active [facility] on on 12-25 [facility] 00[facility] 00 Center Dyslipidem Dyslipidem Disease Active [facility] ia ia 12-25 [facility] Right Right Disease Active [facility]ided [facility] weakness weakness 00:00: Medica l 00 Center TIA TIA Disease Active [facility] (transient (transient 12-25 Kristina kes ischemic ischemic 00:00: Medica l attack) attack) 00 Center Cerebrovas Cerebrovas Disease Recurre [facility] cular cular nce 12[facility]25 [facility] accident accident 00:00: Medica l (CVA) due (CVA) due 00 Cent er to to 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 Gastro-eso Gastro-eso Problem C [facility] phageal phageal Spirit reflux reflux - CHI disease disease St without without [facility] esophagiti esophagiti Me dical s s Center Hyperlipid Hyperlipid Problem C ommon emia emia, Spirit unspecifie - CHI d [facility] [id number] Monocytosi Problem Com sat Spirit - CHI [facility] [id number] Primary Problem Comm on osteoarthr Spirit itis of - CHI left knee [facility] [id number] Other Problem Common chronic [facility] pain - CHI [facility] [id number] Asymptomat Problem Co mmon ic Spirit hypertensi - CHI ve urgency [facility] [id number] Coronary Problem Com sat 107 artery Spirit disease - CHI involving egegik [facility] coronary Medical artery of [place] egegik heart without angina pectoris [id number] Carotid Problem Commo n occlusion, Spirit bilateral - [facility] [id number] Subclinica Problem Com mon l Spirit hypothyroi - CHI dism [facility] [id number] Body mass Problem Com mon index Spirit (BMI) - [facility] 34.0-34.9, [facility] Acquired Acquired Problem Commo n hypothyroi hypothyroi Sp shila dism dism - [facility] [id number] Mixed Problem Common hyperlipid Spirit emia - [facility] [id number] Type 2 [place] [id number] diabetes Spirit mellitus - CHI with other [facility] kidney Medical complicati Center on [id number] History of Problem Co mmon CVA Spirit (cerebrova - CHI scular St accident) [facility] without Medical residual Center deficits [id number] Other Problem Common obesity Spirit due to - CHI excess [facility] [id number] Iron Problem Common deficiency Spirit anemia, - [facility] unspecifie [facility] iron [facility] deficiency Medica l anemia Center type [id number] S/P Problem Common carotid Spirit endarterec - [facility] alon [facility] [id number] Type 2 Problem Common diabetes Spirit mellitus - CHI with [facility], Medical without Center long-term current use of insulin Allergies, Adverse Reactions, Alerts Allergy Allergy Status Severity Reaction(s) Onset Inactive Treating Comm ents Source Name Type Date Date Clinician NO KNOWN Allergy Active [facility] Social History Social Habit Start Date Stop Date Quantity Comments Source History of Tobacco [facility] - Use [facility] Sexual orientation [facility] Alcohol intake 2020-03-31 2020-03-31 Current [facility]er [facility]:00 of alcohol Medical Center (finding) Alcohol Comment 2016-12-25 2016-12-25 one beer every [facility] 00:[facility]:00 00:00:00 other weekend Medical Jaylene ter Tobacco use and 2016-12-25 2016-12-25 Smokeless tobacco I [facility] exposure 00:00:00 00:00:00 non-user Medical Center Sex Assigned At [birth year] [facility] 00:00:00 00:00:00 Medical Center Smoking Status Start Date Stop Date Source Never Smoker [facility] - [facility] Medications Ordered Filled Start Stop Current Ordering Indication Dosage Frequency Signature Comments Components Source Medication Medication Date Date Medication? Clinician (SIG) Name Name Lidocaine Lidocaine 2022-1 No 5mL Com mon 0-20 Spirit 00:00: - [facility] Deedee Kenalog 2022- No 2mL Common (Triamcinol (Triamcinol 0-20 S pirit one) one) 00:00: - CHI [facility] Lidocaine Lidocaine 2022-1 No 5mL Com mon 0-20 Spirit 00:00: - [facility] Kenalog Kenalog 2022- No 2mL Common (Triamcinol (Triamcinol 0-20 S pirit one) one) 00:00: - [facility] Lidocaine Lidocaine 2022-1 No 5mL Com mon 0-20 Spirit 00:00: - [facility] Kenalog Kenalog 2022- No 2mL Common (Triamcinol (Triamcinol 0-20 S pirit one) one) 00:00: - [facility]I [facility] Lidocaine Lidocaine 3-0 No 5mL Com mon 5-12 Spirit 00:00: - [facility] Kenalog Kenalog 2022-0 No 2mL Common (Triamcinol (Triamcinol 5-12 S pirit one) one) 00:00: - CHI 00 [facility] Lidocaine Lidocaine 3-0 No 5mL Com mon 5-12 Spirit 00:00: - [facility] Kenalog Kenalog 2022-0 No 2mL Common (Triamcinol (Triamcinol 5-12 S pirit one) one) 00:00: - [facility] Lidocaine Lidocaine 3-0 No 5mL Com mon 5-12 Spirit 00:00: - [facility] Kenalog Kenalog 2022-0 No 2mL Common (Triamcinol (Triamcinol 5-12 S pirit one) one) 00:00: - [facility] Lidocaine Lidocaine 3-0 No 5mL Com mon 5-12 Spirit 00:00: - [facility] Kenalog Kenalog 2022-0 No 2mL Common (Triamcinol (Triamcinol 5-12 S pirit one) one) 00:00: - CHI 00 [facility] Lidocaine Lidocaine 2022-0 No 5mL Com mon 5-12 Spirit 00:00: - CHI 00 [facility] Kenalog Kenalog 2022-0 No 2mL Common (Triamcinol (Triamcinol 5-12 S pirit one) one) 00:00: - CHI 00 [facility] FreeStyle FreeStyle 2021-0 No BID FreeStyle Lite Test Lite Test 8-16 Lite Test n/s n/s 00:00: n/s 00 FreeStyle FreeStyle 2021-0 No BID FreeStyle Lite Test Lite Test [...] 25 00:00: food} MG 00 Potassium Potassium 2020-2021- No 1{table BID Potassium Chloride ER Chloride ER 07-09 t_with_ Chloride 10 MEQ 10 MEQ 00:00: 00:00 food} ER 10 MEQ 00 :00 Potassium Potassium 2020-2021- No 1{table BID Potassium Chloride ER Chloride ER 07-09 t_with_ Chloride 10 MEQ 10 MEQ 00:00: 00:00 food} ER 10 MEQ 00 :00 Potassium Potassium 2020-05- No 1{table BID Potassium Chloride ER Chloride ER 07-09 t_with_ Chloride 10 MEQ 10 MEQ 00:00: [...] MG 13:29: mouth Medical tablet 39 daily. [place] valsartan 2019-05 Yes 320mg QD Take [address] (DIOVAN) 1-05 mg by [facility] 320 MG 13:29: mouth Medical tablet 39 daily. [place] valsartan 2019-05 Yes 320mg QD Take [address] (DIOVAN) 1-05 mg by [facility] 320 MG 13:29: mouth Medical tablet 39 daily. [place] clopidogrel 2019-05 Yes 75mg QD Take [address] (PLAVIX) 75 1-05 by mouth Luke s mg tablet 13:28: daily. Medica l 10 [place] clopidogrel 2019-05 Yes 75mg QD Take [address] (PLAVIX) 75 1-05 by mouth Luke s mg tablet 13:28: daily. Medica l 10 [place] clopidogrel 2019-05 Yes 75mg QD Take [address] (PLAVIX) 75 1-05 by mouth Luke s mg tablet 13:28: daily. Medica l 10 [place] atorvastati 2019-05 Yes hyperlipide 40mg QD Take [address] n (LIPITOR) 1-05 lizeth by mouth Luke s 40 MG 13:28: daily. Medical tablet 06 [place] aspirin 81 2019-05 Yes 81mg QD Take [address] MG EC 1-05 by mouth [facility] tablet 13:28: daily. Medical 06 [place] levothyroxi 2019-05 Yes 25ug Take [address] ne 1-05 mcg by [facility]ukes (SYNTHROID, 13:28: mouth Medic al LEVOTHROID) 06 [facility] 25 MCG morning on tablet an empty stomach. atorvastati 2019-05 Yes hyperlipide 40mg QD Take [address] n (LIPITOR) 1-05 lizeth by mouth Luke s 40 MG 13:28: daily. Medical tablet [address] [place] [address] aspirin 81 2019-05 Yes 81mg QD Take [address] MG EC 1-05 by mouth [facility] tablet 13:28: daily. [address] levothyroxi 2019-05 Yes 25ug Take [address] ne 1-05 mcg by [facility]ukes (SYNTHROID, 13:28: mouth Medic al LEVOTHROID) Every Center 25 MCG morning on tablet an empty stomach. atorvastati 2019-05 Yes hyperlipide 40mg QD Take [address] n (LIPITOR) 1-05 lizeth by mouth Luke s 40 MG 13:28: daily. Medical tablet [address] [place] [address] aspirin 81 2019-05 Yes 81mg QD Take [address] MG EC 1-05 by mouth [facility] tablet 13:28: daily. [address] levothyroxi 2019-05 Yes 25ug Take [address] ne 1-05 mcg by [facility] (SYNTHROID, 13:28: mouth Medic al LEVOTHROID) [address] [place] [address] 25 MCG morning on tablet an empty stomach. Levothyroxi Levothyroxi Yes Manuel 1 tablet Common ne Sodium ne Sodium 9-02 [place] in the Sp shila 00:00: morning on - [facility]I [address] [facility] Valsartan Valsartan Yes Manuel 2 tablets Common Pelayo [facility] Clopidogrel Clopidogrel Yes Manuel 1 tablet Common Bisulfate Bisulfate Pelayo Spir [facility] Atorvastati Atorvastati Yes Manuel 1 tablet Common n Calcium n Calcium Pelayo [facility] Metoprolol Metoprolol Yes Manuel 1 tablet Common Succinate Succinate Pelayo Spir it ER ER [facility] Amlodipine Amlodipine Yes Manuel 1 tablet Common Besylate Besylate Pelayo [facility] Aspir-- Yes Manuel 1 tablet C ommon Pelayo [facility] Amlodipine Amlodipine Yes Manuel 1 tablet Common Besylate Besylate Pelayo [facility] Hydrochloro Hydrochloro Yes Manuel 1 tablet Common thiazide thiazide [place] in the Spir it morning [facility] Losartan Losartan Yes Manuel 1 tablet C ommon Potassium Potassium [place] Spir it - CHI [facility] amLODIPine amLODIPine No 1{table QD amLODIPine Besylate [...] 320 MG 320 MG t} 320 MG Aspir- 81 - 81 No 1{table QD Aspir-81 MG MG [...] 320 MG 320 MG t} 320 MG - 81 No 1{table QD Aspir-81 MG MG [...] MG t_with_ E HCl 25 food} MG - 81 No 1{table QD Aspir-81 MG MG [...] Sodium 50 MCG 50 MCG 50 MCG metFORMIN metFORMIN No metFORMIN HCl ER 750 HCl ER 750 HCl ER 750 MG MG MG Levothyroxi Levothyroxi No Levothyrox ne Sodium ne Sodium ine Sodium 50 MCG 50 MCG 50 MCG Atorvastati Atorvastati No 1{table QD Atorvastat n Calcium n Calcium t} in Calcium 40 MG 40 MG 40 MG Slow Fe 142 Slow Fe 142 No 1{table QD Slow Fe (45 Fe) MG (45 Fe) MG t} 142 (45 Fe) MG Levothyroxi Levothyroxi No QD Levothyrox ne Sodium ne Sodium ine Sodium 75 MCG 75 MCG 75 MCG metFORMIN metFORMIN No BID metFORMIN HCl ER 750 HCl ER 750 HCl ER 750 MG MG MG hydrALAZINE hydrALAZINE No hydrALAZIN HCl 25 MG HCl 25 MG E HCl 25 MG Aspir-81 81 Aspir-81 81 No 1{table QD Aspir-81 MG MG t} 81 MG Clopidogrel Clopidogrel No 1{table QD Clopidogre Bisulfate Bisulfate t} l 75 MG 75 MG Bisulfate 75 MG Furosemide Furosemide No 1{table BID Furosemide 40 MG 40 MG t} 40 MG Valsartan Valsartan No 1{table QD Valsartan 320 MG 320 MG t} 320 MG hydrALAZINE hydrALAZINE No 1{table BID hydrALAZIN HCl 25 MG HCl 25 MG t_with_ E HCl 25 food} MG Metoprolol Metoprolol No 1{table QD Metoprolol Succinate Succinate t} Succinate ER 200 MG ER 200 MG ER 200 MG Valsartan Valsartan No Valsartan 320 MG 320 MG 320 MG Potassium Potassium No 1{table BID Potassium Chloride ER Chloride ER t_with_ Chloride 10 MEQ 10 MEQ food} ER 10 MEQ Atorvastati Atorvastati No Atorvastat n Calcium n Calcium in Calcium 40 MG 40 MG 40 MG metFORMIN metFORMIN No metFORMIN HCl ER 750 HCl ER 750 HCl ER 750 MG MG MG Levothyroxi Levothyroxi No Levothyrox ne Sodium ne Sodium ine Sodium 50 MCG 50 MCG 50 MCG Atorvastati Atorvastati No 1{table QD Atorvastat n Calcium n Calcium t} in Calcium 40 MG 40 MG 40 MG Slow Fe 142 Slow Fe 142 No 1{table QD Slow Fe (45 Fe) MG (45 Fe) MG t} 142 (45 Fe) MG Levothyroxi Levothyroxi No QD Levothyrox ne Sodium ne Sodium ine Sodium 75 MCG 75 MCG 75 MCG metFORMIN metFORMIN No BID metFORMIN HCl ER 750 HCl ER 750 HCl ER 750 MG MG MG hydrALAZINE hydrALAZINE No hydrALAZIN HCl 25 MG HCl 25 MG E HCl 25 MG Aspir-81 81 Aspir-81 81 No 1{table QD Aspir-81 MG MG t} 81 MG Clopidogrel Clopidogrel No 1{table QD Clopidogre Bisulfate Bisulfate t} l 75 MG 75 MG Bisulfate 75 MG Furosemide Furosemide No 1{table BID Furosemide 40 MG 40 MG t} 40 MG Valsartan Valsartan No 1{table QD Valsartan 320 MG 320 MG t} 320 MG hydrALAZINE hydrALAZINE No 1{table BID hydrALAZIN HCl 25 MG HCl 25 MG t_with_ E HCl 25 food} MG Metoprolol Metoprolol No 1{table QD Metoprolol Succinate Succinate t} Succinate ER 200 MG ER 200 MG ER 200 MG Valsartan Valsartan No Valsartan 320 MG 320 MG 320 MG Potassium Potassium No 1{table BID Potassium Chloride ER Chloride ER t_with_ Chloride 10 MEQ 10 MEQ food} ER 10 MEQ Atorvastati Atorvastati No Atorvastat n Calcium n Calcium in Calcium 40 MG 40 MG 40 MG metFORMIN metFORMIN No BID metFORMIN HCl ER 750 HCl ER 750 HCl ER 750 MG MG MG Furosemide Furosemide No 1{table BID Furosemide 40 MG 40 MG t} 40 MG hydrALAZINE hydrALAZINE No hydrALAZIN HCl 25 MG HCl 25 MG E HCl 25 MG Atorvastati Atorvastati No Atorvastat n Calcium n Calcium in Calcium 40 MG 40 MG 40 MG Levothyroxi Levothyroxi No QD Levothyrox ne Sodium ne Sodium ine Sodium 75 MCG 75 MCG 75 MCG Aspir-81 81 Aspir-81 81 No 1{table QD Aspir-81 MG MG t} 81 MG Levothyroxi Levothyroxi No Levothyrox ne Sodium ne Sodium ine Sodium 50 MCG 50 MCG 50 MCG Valsartan Valsartan No Valsartan 320 MG 320 MG 320 MG Clopidogrel Clopidogrel No 1{table QD Clopidogre Bisulfate Bisulfate t} l 75 MG 75 MG Bisulfate 75 MG Metoprolol Metoprolol No 1{table QD Metoprolol Succinate Succinate t} Succinate ER 200 MG ER 200 MG ER 200 MG hydrALAZINE hydrALAZINE No 1{table BID hydrALAZIN HCl 25 MG HCl 25 MG t_with_ E HCl 25 food} MG Atorvastati Atorvastati No 1{table QD Atorvastat n Calcium n Calcium t} in Calcium 40 MG 40 MG 40 MG Potassium Potassium No 1{table BID Potassium Chloride ER Chloride ER t_with_ Chloride 10 MEQ 10 MEQ food} ER 10 MEQ Valsartan Valsartan No 1{table QD Valsartan 320 [...] 750 HCl ER 750 MG MG MG Furosemide Furosemide No 1{table BID Furosemide 40 MG 40 MG t} 40 MG hydrALAZINE hydrALAZINE No hydrALAZIN HCl 25 MG HCl 25 MG E HCl 25 MG Atorvastati Atorvastati No Atorvastat n Calcium n Calcium in Calcium 40 MG 40 MG 40 MG Levothyroxi Levothyroxi No QD Levothyrox ne Sodium ne Sodium ine Sodium 75 MCG 75 MCG 75 MCG Aspir-81 81 Aspir-81 81 No 1{table QD Aspir-81 MG MG t} 81 MG Levothyroxi Levothyroxi No Levothyrox ne Sodium ne Sodium ine Sodium 50 MCG 50 MCG 50 MCG Valsartan Valsartan No Valsartan 320 MG 320 MG 320 MG Clopidogrel Clopidogrel No 1{table QD Clopidogre Bisulfate Bisulfate t} l 75 MG 75 MG Bisulfate 75 MG Metoprolol Metoprolol No 1{table QD Metoprolol Succinate Succinate t} Succinate ER 200 MG ER 200 MG ER 200 MG hydrALAZINE hydrALAZINE No 1{table BID hydrALAZIN HCl 25 MG HCl 25 MG t_with_ E HCl 25 food} MG Atorvastati Atorvastati No 1{table QD Atorvastat n Calcium n Calcium t} in Calcium 40 MG 40 MG 40 MG Potassium Potassium No 1{table BID Potassium Chloride ER Chloride ER t_with_ Chloride 10 MEQ 10 MEQ food} ER 10 MEQ Valsartan Valsartan No 1{table QD Valsartan 320 [...] 750 HCl ER 750 MG MG MG Furosemide Furosemide No 1{table BID Furosemide 40 MG 40 MG t} 40 MG hydrALAZINE hydrALAZINE No hydrALAZIN HCl 25 MG HCl 25 MG E HCl 25 MG Atorvastati Atorvastati No Atorvastat n Calcium n Calcium in Calcium 40 MG 40 MG 40 MG Levothyroxi Levothyroxi No QD Levothyrox ne Sodium ne Sodium ine Sodium 75 MCG 75 MCG 75 MCG Aspir-81 81 Aspir-81 81 No 1{table QD Aspir-81 MG MG t} 81 MG Levothyroxi Levothyroxi No Levothyrox ne Sodium ne Sodium ine Sodium 50 MCG 50 MCG 50 MCG Valsartan Valsartan No Valsartan 320 MG 320 MG 320 MG Clopidogrel Clopidogrel No 1{table QD Clopidogre Bisulfate Bisulfate t} l 75 MG 75 MG Bisulfate 75 MG Metoprolol Metoprolol No 1{table QD Metoprolol Succinate Succinate t} Succinate ER 200 MG ER 200 MG ER 200 MG hydrALAZINE hydrALAZINE No 1{table BID hydrALAZIN HCl 25 MG HCl 25 MG t_with_ E HCl 25 food} MG Atorvastati Atorvastati No 1{table QD Atorvastat n Calcium n Calcium t} in Calcium 40 MG 40 MG 40 MG Potassium Potassium No 1{table BID Potassium Chloride ER Chloride ER t_with_ Chloride 10 MEQ 10 MEQ food} ER 10 MEQ Valsartan Valsartan No 1{table QD Valsartan 320 MG 320 MG t} 320 MG metFORMIN metFORMIN No metFORMIN HCl ER 750 HCl ER 750 HCl ER 750 MG MG MG Slow Fe 142 Slow Fe 142 No 1{table QD Slow Fe (45 Fe) MG (45 Fe) MG t} 142 (45 Fe) MG Aspir-81 81 Aspir-81 81 No 1{table [...] ER 750 MG MG MG Immunizations Ordered Filled Immunization Date Status Comments Sourc e Immunization Name Name Fluzone Fluzone 2021-04-27 Completed [facility] 11:01:00 - [facility] Fluzone Fluzone 2021-04-27 Completed [facility] 11:01:00 - [facility] Fluzone Fluzone 2021-04-27 Completed [facility] 11:01:00 - [facility] Fluzone Fluzone 2021-04-27 Completed [facility] 11:01:00 - [facility] Fluzone Fluzone 2021-04-27 Completed [facility] 11:01:00 - [facility] Fluzone Fluzone 2021-04-27 Completed [facility] 11:01:00 - [facility] Fluzone Fluzone 2021-04-27 Completed [facility] 11::00 - [facility] Fluzone Fluzone 2021-04-27 Completed [facility] 11::00 - [facility] Fluzone Fluzone 2021-04-27 Completed [facility] 11::00 - [facility] Fluzone Fluzone 2021-04-27 Completed [facility] 11::00 - [facility] Fluzone Fluzone 2021-04-27 Completed [facility] 11::00 - [facility] Fluzone Fluzone 2021-04-27 Completed [facility] 11:: - [facility] Fluzone Fluzone 2021-04-27 Completed [facility] 11::00 - [facility] FluAD FluAD 2018-07-28 Completed [facility] 10:15:00 - [facility] FluAD FluAD 2018-07-28 Completed [facility] 10:15:00 - [facility] FluAD FluAD 2018-07-28 Completed [facility] 10:15:00 - [facility] FluAD FluAD 2018-07-28 Completed [facility] 10:15:00 - [facility] FluAD FluAD 2018-07-28 Completed [facility] 10:15:00 - [facility] FluAD FluAD 2018-07-28 Completed [facility] 10:15:00 - [facility] FluAD FluAD 2018-07-28 Completed [facility] 10:15:00 - [facility] FluAD FluAD 2018-07-28 Completed [facility] 10:15:00 - [facility] FluAD FluAD 2018-07-28 Completed [facility] 10:15:00 - [facility] FluAD FluAD 2018-07-28 Completed [facility] 10:15:00 - [facility] FluAD FluAD 2018-07-28 Completed [facility] 10:15:00 - [facility] FluAD FluAD 2018-07-28 Completed [facility] 10:15:00 - [facility] FluAD FluAD 2018-07-28 Completed [facility] 10:15:00 [facility] FluAD FluAD 2018-07-28 Completed [facility] 00:00:00 [facility] FluAD FluAD Unknown Completed [facility] Fluzone Fluzone Unknown Completed [facility] FluAD FluAD Unknown Completed [facility] Fluzone Fluzone Unknown Completed [facility] FluAD FluAD Unknown Completed [facility] Fluzone Fluzone Unknown Completed [facility] FluAD FluAD Unknown Completed [facility] Fluzone Fluzone Unknown Completed [facility] FluAD FluAD Unknown Completed [facility] Fluzone Fluzone Unknown Completed [facility] Vital Signs Vital Name Observation Time Observation Value Comments Source HEIGHT 2020-03-16 08:04:00 167.6 cm WEIGHT 2020-03-16 08:04:00 88.587 kg HEIGHT 2020-03-15 10:51:00 167.6 cm WEIGHT 2020-03-15 10:51:00 90.266 kg height 2022-11-02 09:50:00 65 [in_i] [facility] weight 2022-11-02 09:50:00 193.0 [lb_av] [facility] temperature 2022-11-02 09:50:00 97.2 [degF] [facility] bmi 2022-11-02 09:50:00 32.11 kg/m2 [facility] oximetry 2022-11-02 09:50:00 97 % [facility] respiratory rate 2022-11-02 09:50:00 18 /min Comm on [facility] blood pressure 2022-11-02 09:50:00 138 mm[Hg] [facility] blood pressure 2022-11-02 09:50:00 76 mm[Hg] [facility] - diastolic [facility] height 2022-10-05 08:00:00 65 [in_i] Common S pirit - [facility] weight 2022-10-05 08:00:00 189.2 [lb_av] Common [facility] temperature 2022-10-05 08:00:00 97.7 [degF] Common S pirit - [facility] bmi 2022-10-05 08:00:00 31.48 kg/m2 Common S pirit - [facility] blood pressure 2022-10-05 08:00:00 136 mm[Hg] [facility] - systolic [facility] blood pressure 2022-10-05 08:00:00 78 mm[Hg] Common [facility] - diastolic [facility] height 2022-07-06 09:40:00 65 [in_i] [facility] weight 2022-07-06 09:40:00 204.5 [lb_av] [facility] temperature 2022-07-06 09:40:00 97.7 [degF] Common S pirit [facility] bmi 2022-07-06 09:40:00 34.03 kg/m2 [facility] S pirit [facility] oximetry 2022-07-06 09:40:00 98 % [facility] respiratory rate 2022-07-06 09:40:00 18 /min Comm on [facility] blood pressure 2022-07-06 09:40:00 135 mm[Hg] [facility] - systolic [facility] blood pressure 2022-07-06 09:40:00 76 mm[Hg] Common [facility] - diastolic [facility] height 2022-07-06 09:30:00 65 [in_i] Common [facility] weight 2022-07-06 09:30:00 204.5 [lb_av] [facility] temperature 2022-07-06 09:30:00 97.7 [degF] Common S pirit [facility] bmi 2022-07-06 09:30:00 34.03 kg/m2 Common [facility] oximetry 2022-07-06 09:30:00 98 % Common [facility] respiratory rate 2022-07-06 09:30:00 18 /min Comm on [facility] blood pressure 2022-07-06 09:30:00 135 mm[Hg] Common [facility] - systolic [facility] blood pressure 2022-07-06 09:30:00 76 mm[Hg] Common [facility] - diastolic [facility] height 2022-03-07 13:40:00 65 [in_i] Common [facility] weight 2022-03-07 13:40:00 204.8 [lb_av] [facility] temperature 2022-03-07 13:40:00 97.4 [degF] Common [facility] bmi 2022-03-07 13:40:00 34.08 kg/m2 Common [facility] oximetry 2022-03-07 13:40:00 98 % Common [facility] respiratory rate 2022-03-07 13:40:00 18 /min Comm on [facility] blood pressure 2022-03-07 13:40:00 138 mm[Hg] Common [facility] - systolic [facility] blood pressure 2022-03-07 13:40:00 76 mm[Hg] Common [facility] - diastolic [facility] height 2021-11-02 14:40:00 65 [in_i] Common [facility] weight 2021-11-02 14:40:00 190.5 [lb_av] [facility] temperature 2021-11-02 14:40:00 99.0 [degF] [facility]mi 2021-11-02 14:40:00 31.7 kg/m2 Common [facility] oximetry 2021-11-02 14:40:00 97 % [facility] 2021-11-02 14:40:00 17 /min Comm on [facility] blood pressure 2021-11-02 14:40:00 135 mm[Hg] Common [facility] - systolic [facility] blood pressure 2021-11-02 14:40:00 82 mm[Hg] Common [facility] - diastolic [facility] height 2021-07-04 10:40:00 65 [in_i] Common [facility] weight 2021-07-04 10:40:00 189.5 [lb_av] Common [facility] temperature 2021-07-04 10:40:00 98.0 [degF] Common [facility] bmi 2021-07-04 10:40:00 31.53 kg/m2 [facility] oximetry 2021-07-04 10:40:00 97 % [facility] respiratory rate 2021-07-04 10:40:00 17 /min Comm on [facility] blood pressure 2021-07-04 10:40:00 137 mm[Hg] Common [facility] - systolic [facility] blood pressure 2021-07-04 10:40:00 78 mm[Hg] Common [facility] - diastolic [facility] height 2021-07-04 10:10:00 65 [in_i] Common [facility] weight 2021-07-04 10:10:00 189.5 [lb_av] Common [facility] temperature 2021-07-04 10:10:00 98.0 [degF] Common [facility] bmi 2021-07-04 10:10:00 31.53 kg/m2 Common [facility] oximetry 2021-07-04 10:10:00 97 % Common [facility] respiratory rate 2021-07-04 10:10:00 17 /min Comm on [facility] blood pressure 2021-07-04 10:10:00 137 mm[Hg] Common [facility] - systolic [facility] blood pressure 2021-07-04 10:10:00 78 mm[Hg] Common [facility] - diastolic [facility] height 2021-05-08 14:30:00 65 [in_i] Common [facility] weight 2021-05-08 14:30:00 192.9 [lb_av] Common [facility] temperature 2021-05-08 14:30:00 98.1 [degF] [facility] bmi 2021-05-08 14:30:00 32.1 kg/m2 Common [facility] oximetry 2021-05-08 14:30:00 96 % Common [facility] respiratory rate 2021-05-08 14:30:00 17 /min Comm on [facility] blood pressure 2021-05-08 14:30:00 133 mm[Hg] Common [facility] - systolic [facility] blood pressure 2021-05-08 14:30:00 72 mm[Hg] Common [facility] - diastolic [facility] height 2021-04-27 10:50:00 65 [in_i] Common [facility] weight 2021-04-27 10:50:00 204.7 [lb_av] [facility] temperature 2021-04-27 10:50:00 97.3 [degF] Common [facility] bmi 2021-04-27 10:50:00 34.06 kg/m2 Common [facility] oximetry 2021-04-27 10:50:00 96 % Common [facility] respiratory rate 2021-04-27 10:50:00 16 /min Comm on [facility] blood pressure 2021-04-27 10:50:00 134 mm[Hg] Common [facility] - systolic [facility] blood pressure 2021-04-27 10:50:00 82 mm[Hg] Common [facility] - diastolic [facility] HEIGHT 2020-03-31 13:18:00 167.6 cm WEIGHT 2020-03-31 [...] [facility] ([facility] Ended) [code = [facility] INFLUENZA VACCINE (Season Ended)] Future Scheduled 2023-01-25 Influenza Vaccine (#1) [facility] 00:[facility]:00 [code = Influenza Medical Ce nter Vaccine (#1)] Future Scheduled 2022-05-[address] [...] Cessation Counseling and Screening (12+)] Future Scheduled 2020-10-27 COVID-19 VACCINE (3 - [facility] 00:00:00 Pfizer series) [code = Medic al Center COVID-19 VACCINE (3 - Pfizer series)] Future Scheduled 2004-12-[address] [...] DTAP/TDAP/TD VACCINES (1 - Tdap)] Future Scheduled [address] [facility] 00:00:00 Counseling and Medical Cente r Screening (12+) [code = Tobacco Cessation Counseling and Screening (12+)] Future Scheduled 1939 COVID-19 VACCINE (#1) [facility] 00:00:00 [code = COVID-[address] VACCINE (#1)] Future Scheduled 1939 COVID-19 VACCINE (#1) [facility] 00:00:00 [code = COVID-[address] VACCINE (#1)] Encounters Start End Encounter Admission Attending Care Care Encounter Source Date/Time Date/Time Type Type Clinicians Facility Department ID 2023-03-15 Outpatient Pelayo, STLMLC STLC [id number] Common 11:10:00 Manuel [id number] [facility] 2023-03-08 Outpatient Pleayo, STLMLC STLC [id number] Common 10:14:00 Manuel [id number] [facility] 2022-11-01 Outpatient Pelayo, STLMLC STLMLC [id number] Common 10:38:00 Manuel [id number] [facility] 2022-10-05 Outpatient Pelayo, STLMLC STLMLC [id number] Common 10:50:00 Manuel 36847 [facility] 2022-10-02 Outpatient Pelayo, STLMLC STLC [id number] Common 13:45:00 Manuel [id number] [facility] 2022-07-04 Outpatient Pelayo, STLMLC STLC [id number] Common 09:53:00 Manuel 54570 [facility] 2022-06-11 Outpatient Pelayo, STLMLC STLMLC [id number] Common 15:34:00 Manuel 23524 [facility] 2021-06-21 Outpatient Pelayo, STLMLC STLMLC [id number] Common 14:07:35 Manuel [id number] [facility] 2021-06-21 Outpatient Pelayo, STLMLC STLMLC [id number] Common 13:33:19 Manuel 01324 [facility] 2021-06-21 Outpatient Pelayo, STLMLC STLMLC [id number] Common 12:28:44 Manuel 76561 [facility] 2021-06-21 Outpatient Pelayo, STLMLC STLMLC [id number] Common 12:27:10 Manuel 66097 [facility] 2021-06-21 Outpatient Pelayo, STLMLC STLMLC [id number] Common 11:59:52 Manuel 33349 [facility] 2021-06-21 Outpatient Pelayo, STLMLC STLMLC [id number] Common 11:42:41 Manuel 13272 [facility] 2021-06-21 Outpatient Pelayo, STLMLC STLMLC [id number] Common 11:41:00 Manuel 42347 [facility] 2021-06-21 Outpatient Pelayo, STLMLC STLMLC [id number] Common 11:24:33 Manuel [id number] [facility] 2021-06-21 Outpatient Pelayo, STLMLC STLMLC [id number] Common 11:11:08 Manuel 66635 [facility] 2021-06-21 Outpatient Pelayo, STLMLC STLMLC [id number] Common 11:07:23 Manuel 15440 [facility] 2021-03-01 Inpatient BRAD, SLE Surgery [id number] SLE 10:47:23 TIFFANIE 2022-11-02 2022-11-02 OFFICE STLMLC STLMLC [id number] Co mmon 00:00:00 00:00:00 VISIT [facility] 4 [facility] 2022-10-05 2022-10-05 OFFICE STLMLC STLMLC [id number] Co mmon 00:00:00 00:00:00 VISIT NEW Spir it PT LEVEL 3 - CHI [facility] 2022-09-13 2022-09-13 (TEL) STLMLC STLMLC [id number] Co mmon 00:00:00 00:00:00 Spirit - [facility] 2022-07-06 2022-07-06 OFFICE STLMLC STLMLC [id number] Co mmon 00:00:00 00:00:00 VISIT Spirit ESTAB PT - CHI LEVEL 4 [facility] 2022-07-06 2022-07-06 SUB ANNUAL STLMLC STLMLC [id number] Common 00:00:00 00:00:00 MCR [facility] WELLNESS - CHI VISIT [facility] 2022-03-07 2022-03-07 OFFICE STLMLC STLMLC [id number] Co mmon 00:00:00 00:00:00 VISIT [facility] ESTAB PT - CHI LEVEL 4 [facility] 2022-01-03 2022-01-03 (TEL) STLMLC STLMLC [id number] Co mmon 00:00:00 00:00:00 Spirit [facility] 2022-01-02 2022-01-02 (TEL) STLMLC STLMLC [id number] Co mmon 00:00:00 00:00:00 [facility] 2021-12-08 2021-12-08 (TEL) STLMLC STLMLC [id number] Co mmon 00:00:00 00:00:00 Spirit - [facility] 2021-11-02 2021-11-02 OFFICE STLMLC STLMLC [id number] Co mmon 00:00:00 00:00:00 VISIT [facility] ESTAB PT - CHI LEVEL 4 [facility] 2021-08-28 2021-08-28 (TEL) STLMLC STLMLC [id number] Co mmon 00:00:00 00:00:00 Spirit - [facility] 2021-07-04 2021-07-04 OFFICE STLMLC STLMLC [id number] Co mmon 00:00:00 00:00:00 VISIT [facility] ESTAB PT - CHI LEVEL 4 [facility] 2021-07-04 2021-07-04 SUB ANNUAL STLMLC STLMLC [id number] Common 00:00:00 00:00:00 MCR [facility] WELLNESS - [facility] VISIT [facility] 2021-05-08 2021-05-08 (TEL) STLMLC STLMLC [id number] Co mmon 00:00:00 00:00:00 [facility] 2021-05-08 2021-05-08 (HOSP F/U) STLMLC STLMLC [id number] Common 00:00:00 00:00:00 [facility] 2021-05-04 2021-05-04 (TEL) STLMLC STLMLC [id number] Co mmon 00:00:00 00:00:00 [facility] 2021-05-03 2021-05-03 (TEL) STLMLC STLMLC [id number] Co mmon 00:00:00 00:00:00 [facility] 2021-04-27 2021-04-27 OFFICE STLMLC STLMLC [id number] Co mmon 00:00:00 00:00:00 VISIT [facility] PT - CHI LEVEL 4 [facility] 2020-12-27 2020-12-27 Outpatient STLMLC STLMLC [id number] Common 00:00:00 00:00:00 [facility] 2020-09-27 2020-09-27 Outpatient STLMLC STLMLC [id number] Common 00:00:00 00:00:00 [facility] 2020-06-30 2020-06-30 Outpatient STLMLC STLMLC [id number] Common 00:00:00 00:00:00 [facility] 2020-06-30 2020-06-30 Outpatient STLMLC STLMLC [id number] Common 00:00:00 00:00:00 [facility] 2020-06-06 2020-06-06 Outpatient STLMLC STLMLC [id number] Common 00:00:00 00:00:00 [facility] 2020-04-04 2020-04-04 Outpatient STLMLC STLMLC [id number] Common 00:00:00 00:00:00 [facility] 2020-04-01 2020-04-01 Outpatient STLMLC STLMLC [id number] Common 00:00:00 00:00:00 [facility] 2020-03-31 2020-03-31 Outpatient EL BRAD, SLEH SLEH [id number] SLEH 00:00:00 00:00:00 TIFFANIE 2020-03-23 2020-03-23 Outpatient STLMLC STLMLC [id number] Common 00:00:00 00:00:00 [facility] 2020-03-15 2020-03-15 Outpatient EL SLEH SLEH [id number] SLEH 00:00:00 00:00:00 2020-03-14 2020-03-14 Outpatient EL BRAD, SLEH SLEH [id number] SLEH 00:00:00 00:00:00 TIFFANIE 2020-03-14 2020-03-14 Outpatient EL BRAD, SLEH SLEH [id number] SLEH 00:00:00 00:00:00 TIFFANIE 2020-03-11 2020-03-11 Outpatient EL BRAD, SLEH SLEH [id number] SLEH 00:00:00 00:00:00 TIFFANIE 2020-01-27 2020-01-27 [facility] [id number] Common 08:40:00 08:40:[address] [facility] 2019-10-27 2019-10-27 [facility] [id number] Common 16:00:00 16:00:[address] [facility] 2019-10-27 2019-10-27 [facility] [id number] Common 08:15:00 08:15:[address] [facility] 2019-07-27 2019-07-27 [facility] [id number] Common 08:45:00 08:45:[address] [facility] 2019-04-09 2019-04-09 Out[facility] [id number] Common 09:30:00 09:30:[address] [facility] 2018-12-08 2018-12-08 Outpatient [facility] Cross [id number] Common 09:30:00 09:30:[address] [facility] 2018-07-28 2018-07-28 Outpatient Sara Cross [id number] Common 09:45:00 09:45:[address] [facility] Results Test Description Test Time Test Comments Results Result Comments Source FERRITIN 2023-03-01 00:00:00 Test Item Value Reference Range Interpretation Comme nts FERRITIN (test code = 25 NG/ML See_Comment [Auto mated message] The system 88584-4) which generated this result transmitted ref erence range: 13-200 NG/ML. The refe rence range was not used to interpr et this result as normal/abnormal . HEMOGLOBIN [id number] 00:00:00 Test Item Value Reference Range Interpretation Comments HEMOGLOBIN A1c (test 6.8 % See_Comment H [Autom ated message] The code = 4548-4) system which generated this result tra nsmitted reference range : 4.2-5.6 %. The referenc e range was not used to interpret this result as normal/abnormal . FREE T4 (THYROXINE)2023-03-01 00:00:00 Test Item Value Reference Range Interpretation Comments FREE T4 1.16 NG/DL See_Comment [Automated mes [place]] The (THYROXINE) (test system [facility] generated code = 3024-7) this result t ransmitted reference range : 0.80-1.90 NG/DL . The reference range was not used to interpr et this result as normal/abnormal . TSH REFLEX TO FREE [id number] 00:00:00 Test Item Value Reference Range Interpretation Comments TSH REFLEX TO FREE 4.730 UIU/ML See_Comment H [Automat ed message] T4 (test code = The system [facility] 28401-5) generated this result transmitted ref erence range: 0.400-4. 100 UIU/ML. The ref erence range was not u sed to interpret this result as normal/abnor mal. LIPID PANEL WITH REFLEX DIRECT [id number] 00:00:00 Test Item Value Reference Range Interpretation Comments CALC LDL CHOL (test 28 MG/DL See_Comment [Automa andrew message] code = 99812-5) The system [facility] generated this result transmit andrew reference range : <100 MG/DL. The reference range was not used to interpret this result as normal/abnormal . CHOLESTEROL (test code 79 MG/DL See_Comment [Aut omated message] = 2093-3) The system [facility] generated this result transmit andrew reference range : <200 MG/DL. The reference range was not used to interpret this result as normal/abnormal . HDL CHOLESTEROL (test 36 MG/DL See_Comment L [Auto mated message] code = 2085-9) The system [facility] generated this result transmit andrew reference range : >39 MG/DL. The refe rence range was not u sed to interpret th is result as normal/abnormal . RISK RATIO LDL/HDL 0.78 RATIO See_Comment [Automat ed message] (test code = 98175-9) The sy stem which generated this result transmit andrew reference range : <3.22 RATIO. Th e reference range was not used to interpret this result as normal/abnormal . TRIGLYCERIDES (test 69 MG/DL See_Comment [Automa andrew message] code = 2571-8) The system [facility] generated this result transmit andrew reference range : <150 MG/DL. The reference range was not used to interpret this result as normal/abnormal . PATHOLOGIST SMEAR [id number] 00:00:00 Test Item Value Reference Range Interpretation Comments BASOPHILS (test code = 1.7 % 68959-8) DIAGNOSIS: (test code (NOTE) = 17282-5) COMMENTS (test code = (NOTE) 69163-3) EOSINOPHILS (test code 3.4 % = 93796-1) HEMATOCRIT (test code 32.6 % See_Comment L [Auto mated message] = 19000-5) The system [facility] generated this result transmitted ref erence range: 34.0-45. 0 %. The reference r josemanuel was not used to interpret this result as normal/abnor mal. HEMOGLOBIN (test code 9.1 G/DL See_Comment L [Auto mated message] = 058-7) The system [facility] generated this result transmitted ref erence range: 11.5-15. 5 G/DL. The reference r josemanuel was not used to interpret this result as normal/abnor mal. LYMPHOCYTES (test code 12.9 % = 80536-8) MCH (test code = 20.6 PG See_Comment L [Automated message] 60469-3) The system [facility] generated this result transmitted ref erence range: 25.0-33. 0 PG. The reference r josemanuel was not used to interpret this result as normal/abnor mal. MCHC (test code = 27.9 G/DL See_Comment L [Automate d message] 15055-5) The system [facility] generated this result transmitted ref erence range: 31.0-36. 0 G/DL. The reference r josemanuel was not used to interpret this result as normal/abnor mal. MCV (test code = 73.9 fL See_Comment L [Automated message] 98115-0) The system [employer] generated this result transmitted ref erence range: 80.0-99. 0 fL. The reference r josemanuel was not used to interpret this result as normal/abnor mal. MICROSCOPIC (NOTE) DESCRIPTION: (test code = 32456-6) MONOCYTES (test code = 18.1 % 09609-2) NEUTROPHILS (test code 63.9 % = 66291-6) PATHOLOGIST: (test (NOTE) code = 19326-0) PLATELET COUNT (test 363 K/UL See_Comment [Autom ated message] code = 84421-6) The system [facility] generated this result transmitted ref erence range: 130-400 K/UL. The reference r josemanuel was not used to interpret this result as normal/abnor mal. RBC (test code = 4.41 M/UL See_Comment [Automated message] 64732-4) The system [facility] generated this result transmitted ref erence range: 3.80-5.4 0 M/UL. The reference r josemanuel was not used to interpret this result as normal/abnor mal. RDW (test code = 16.8 % See_Comment H [Automated message] 91069-8) The system [facility] generated this result transmitted ref erence range: 11.5-15. 0 %. The reference r josemanuel was not used to interpret this result as normal/abnor mal. WBC (test code = 7.2 K/UL See_Comment [Automated message] 96652-0) The system [employer] generated this result transmitted ref erence range: 3.5-11.0 K/UL. The reference r josemanuel was not used to interpret this result as normal/abnor mal. ALBUMIN/CREATININE RATIO, RANDOM [id number] 00:00:00 Test Item Value Reference Range Interpretation Comments ALBUMIN, URINE, 26.5 MG/DL NOT ESTAB MG/DL RANDOM (test code = 61468-1) CALC ALBUMIN/CREAT, 182 MG/G See_Comment H [Automa andrew message] RND (test code = The system which 78391-6) generated this result transmitted ref erence range: <30 MG/G . The reference range was not used to interpr et this result as normal/abnormal . CREATININE, URINE, 145.4 MG/DL NOT ESTAB MG/DL CONC. (test code = 2161-8) COMPREHENSIVE METABOLIC [id number] 00:00:00 Test Item Value Reference Range Interpretation Comments ALBUMIN (test code = 4.5 G/DL See_Comment [Autom ated message] 1751-7) The system [employer] generated this result transmit andrew reference range : 3.5-5.2 G/DL. T he reference range was not used to interpret this result as normal/abnormal . ALKALINE PHOSPHATASE 74 U/L See_Comment [Autom ated message] (test code = 6768-6) The sys tem which generated this result transmit andrew reference range : 40-142 U/L. The reference range was not used to interpret this result as normal/abnormal . BILIRUBIN, TOTAL 0.8 MG/DL See_Comment [Automated message] (test code = 1975-2) The sys tem which generated this result transmit andrew reference range : <=1.2 MG/DL. Th e reference range was not used to interpret this result as normal/abnormal . BUN (test code = 13 MG/DL See_Comment [Automated message] 3094-0) The system [employer] generated this result transmit andrew reference range : 8-23 MG/DL. The reference range was not used to interpret this result as normal/abnormal . CALCIUM (test code = 9.5 MG/DL See_Comment [Autom ated message] 78411-6) The system [facility] generated this result transmit andrew reference range : 8.5-10.5 MG/DL. The reference range was not used to interpret this result as normal/abnormal . CALC A/G RATIO (test 1.7 RATIO See_Comment [Autom ated message] code = 1759-0) The system [facility] generated this result transmit andrew reference range : 1.0-2.6 RATIO. The reference range was not used to interpret this result as normal/abnormal . CALC BUN/CREAT (test 18 RATIO See_Comment [Autom ated message] code = 3097-3) The system [facility] generated this result transmit andrew reference range : 6-28 RATIO. The reference range was not used to interpret this result as normal/abnormal . CALC GLOBULIN (test 2.6 G/DL See_Comment [Automa andrew message] code = 90434-5) The system [facility] generated this result transmit andrew reference range : 1.9-3.7 G/DL. T he reference range was not used to interpret this result as normal/abnormal . CARBON DIOXIDE (test 30 MEQ/L See_Comment [Autom ated message] code = 1963-8) The system [facility] generated this result transmit andrew reference range : 19-31 MEQ/L. Th e reference range was not used to interpret this result as normal/abnormal . CHLORIDE (test code 99 MEQ/L See_Comment [Automa andrew message] = 2074-0) The system [facility] generated this result transmit andrew reference range : 95-107 MEQ/L. T he reference range was not used to interpret this result as normal/abnormal . CREATININE (test 0.71 MG/DL See_Comment [Automated message] code = 2160-0) The system [facility] generated this result transmit andrew reference range : 0.60-1.30 MG/DL . The reference range was not used to interpret this result as normal/abnormal . eGFR (2020 CKD-EPI) 84 ML/MIN/1.73 See_Comment [Auto mated message] (test code = The system [facility] 80924-1) generated this result transmit andrew reference range : >60 ML/MIN/1.73. Th e reference range was not used to interpret this result as normal/abnormal . GLUCOSE (test code = 116 MG/DL See_Comment H [Autom ated message] 1558-6) The system [facility] generated this result transmit andrew reference range : 70-99 MG/DL. Th e reference range was not used to interpret this result as normal/abnormal . POTASSIUM (test code 4.1 MEQ/L See_Comment [Autom ated message] = 2823-3) The system [facility] generated this result transmit andrew reference range : 3.5-5.4 MEQ/L. The reference range was not used to interpret this result as normal/abnormal . PROTEIN, TOTAL (test 7.1 G/DL See_Comment [Autom ated message] code = 2885-2) The system [facility] generated this result transmit andrew reference range : 6.1-8.3 G/DL. T he reference range was not used to interpret this result as normal/abnormal . AST (test code = 20 U/L See_Comment [Automated message] 1920-8) The system [facility] generated this result transmit andrew reference range : 9-40 U/L. The reference range was not used to interpret this result as normal/abnormal . ALT (test code = 16 U/L See_Comment [Automated message] 1742-6) The system [facility] generated this result transmit andrew reference range : 5-40 U/L. The reference range was not used to interpret this result as normal/abnormal . SODIUM (test code = 139 MEQ/L See_Comment [Automa andrew message] 2951-2) The system [employer] [facility] generated this result transmit andrew reference range : 133-146 MEQ/L. The reference range was not used to interpret this result as normal/abnormal . [id number] 00:00:00 Test Item Value Reference Range Interpretation Comments FERRITIN (test code = 14 NG/ML See_Comment [Auto mated message] The 11777-3) system which ge nerated this result tra nsmitted reference range : 13-200 NG/ML. The refe rence range was not u sed to interpret this result as normal/abnormal . HEMOGLOBIN [id number] 00:00:00 Test Item Value Reference Range Interpretation Comments HEMOGLOBIN A1c (test 6.7 % See_Comment H [Autom ated message] The code = 4548-4) system which generated this result tra nsmitted reference range : 4.2-5.6 %. The referenc e range was not used to interpret this result as normal/abnormal . TSH REFLEX TO FREE [id number] 00:00:00 Test Item Value Reference Range Interpretation Comments TSH REFLEX TO FREE 3.000 UIU/ML See_Comment [Automat ed message] T4 (test code = The system w [facility] 04019-0) generated this result transmitted ref erence range: 0.400-4. 100 UIU/ML. The ref erence range was not u sed to interpret this result as normal/abnor mal. LIPID PANEL WITH REFLEX DIRECT [id number] 00:00:00 Test Item Value Reference Range Interpretation Comments CALC LDL CHOL (test 46 MG/DL See_Comment [Automa andrew message] code = 00551-9) The system w [facility] generated this result transmit andrew reference range : <100 MG/DL. The reference range was not used to interpret this result as normal/abnormal . CHOLESTEROL (test code 107 MG/DL See_Comment [Aut omated message] = 2093-3) The system [facility] generated this result transmit andrew reference range : <200 MG/DL. The reference range was not used to interpret this result as normal/abnormal . HDL CHOLESTEROL (test 41 MG/DL See_Comment [Auto mated message] code = 2085-9) The system [facility] generated this result transmit andrew reference range : >39 MG/DL. The refe rence range was not u sed to interpret th is result as normal/abnormal . RISK RATIO LDL/HDL 1.12 RATIO See_Comment [Automat ed message] (test code = 14534-6) The sy stem which generated this result transmit andrew reference range : <3.22 RATIO. Th e reference range was not used to interpret this result as normal/abnormal . TRIGLYCERIDES (test 113 MG/DL See_Comment [Automa andrew message] code = 2571-8) The system [facility] generated this result transmit andrew reference range : <150 MG/DL. The reference range was not used to interpret this result as normal/abnormal . PATHOLOGIST SMEAR [id number] 00:00:00 Test Item Value Reference Range Interpretation Comments BASOPHILS (test code = 0.0 % 43991-0) DIAGNOSIS: (test code (NOTE) = 94012-9) COMMENTS (test code = (NOTE) 72784-8) EOSINOPHILS (test code 1.7 % = 07671-4) HEMATOCRIT (test code 36.4 % See_Comment [Auto mated message] = 08689-3) The system [employer] generated this result transmitted ref erence range: 34.0-45. 0 %. The reference r josemanuel was not used to interpret this result as normal/abnor mal. HEMOGLOBIN (test code 10.7 G/DL See_Comment L [Auto mated message] = 818-7) The system [employer] generated this result transmitted ref erence range: 11.5-15. 5 G/DL. The reference r josemanuel was not used to interpret this result as normal/abnor mal. LYMPHOCYTES (test code 14.4 % = 74384-3) MCH (test code = 24.8 PG See_Comment L [Automated message] 52388-6) The system [employer] generated this result transmitted ref erence range: 25.0-33. 0 PG. The reference r josemanuel was not used to interpret this result as normal/abnor mal. MCHC (test code = 29.4 G/DL See_Comment L [Automate d message] 46274-2) The system [employer] generated this result transmitted ref erence range: 31.0-36. 0 G/DL. The reference r josemanuel was not used to interpret this result as normal/abnor mal. MCV (test code = 84.5 fL See_Comment [Automated message] 37554-6) The system [employer] generated this result transmitted ref erence range: 80.0-99. 0 fL. The reference r josemanuel was not used to interpret this result as normal/abnor mal. MICROSCOPIC (NOTE) DESCRIPTION: (test code = 12131-6) MONOCYTES (test code = 6.8 % 83074-1) NEUTROPHILS (test code 77.1 % = 67180-4) PATHOLOGIST: (test (NOTE) code = 93465-2) PLATELET COUNT (test 314 K/UL See_Comment [Autom ated message] code = 51452-3) The system [employer] [facility] generated this result transmitted ref erence range: 130-400 K/UL. The reference r josemanuel was not used to interpret this result as normal/abnor mal. RBC (test code = 4.31 M/UL See_Comment [Automated message] 23449-2) The system [employer] generated this result transmitted ref erence range: 3.80-5.4 0 M/UL. The reference r josemanuel was not used to interpret this result as normal/abnor mal. RDW (test code = 18.5 % See_Comment H [Automated message] 88471-6) The system [employer] generated this result transmitted ref erence range: 11.5-15. 0 %. The reference r josemanuel was not used to interpret this result as normal/abnor mal. WBC (test code = 7.9 K/UL See_Comment [Automated message] 78507-2) The system [employer] generated this result transmitted ref erence range: 3.5-11.0 K/UL. The reference r josemanuel was not used to interpret this result as normal/abnor mal. IMMUNOFIX AND PROTEIN ELECTROPHORESIS WITH IMMUNOGLOBULIN QUANTS, SERUM 2022-10-29 00:00:00 Test Item Value Reference Range Interpretation Comments % ALBUMIN (test code = 53 % 58925-0) % ALPHA-1 (test code = 4 % 98247-1) % ALPHA-2 (test code = 12 % 04937-1) % BETA (test code = 14 % 49470-5) % GAMMA (test code = 16 % 17947-4) A/G RATIO (test code = 1.2 RATIO See_Comment [Aut omated message] 85834-4) The system [employer] generated this result transmit andrew reference range : 1.2-1.9 RATIO. The reference range was not used to interpret this result as normal/abnormal . ALBUMIN (test code = 3.8 G/DL See_Comment [Autom ated message] 3103-7) The system [employer] generated this result transmit andrew reference range : 2.8-4.9 G/DL. T he reference range was not used to interpret this result as normal/abnormal . ALPHA-1 (test code = 0.3 G/DL See_Comment [Autom ated message] 1249-4) The system [employer] generated this result transmit andrew reference range : 0.2-0.5 G/DL. T he reference range was not used to interpret this result as normal/abnormal . ALPHA-2 (test code = 0.8 G/DL See_Comment [Autom ated message] 2868-8) The system [employer] generated this result transmit andrew reference range : 0.5-1.0 G/DL. T he reference range was not used to interpret this result as normal/abnormal . BETA (test code = 1.0 G/DL See_Comment [Automate d message] 4601-2) The system [employer] generated this result transmit andrew reference range : 0.5-1.2 G/DL. T he reference range was not used to interpret this result as normal/abnormal . GAMMA (test code = 1.2 G/DL See_Comment [Automat ed message] 9314-6) The system [employer] h generated this result transmit andrew reference range : 0.7-1.5 G/DL. T he reference range was not used to interpret this result as normal/abnormal . GLOBULIN (test code = 3.3 G/DL See_Comment [Auto mated message] 52156-4) The system [employer] generated this result transmit andrew reference range : 2.0-3.8 G/DL. T he reference range was not used to interpret this result as normal/abnormal . IMMUNOGLOBULIN A (IgA) 246 MG/DL See_Comment [Aut omated message] (test code = 2458-8) The sys tem which generated this result transmit andrew reference range : 70-400 MG/DL. T he reference range was not used to interpret this result as normal/abnormal . IMMUNOGLOBULIN G (IgG) 1258 MG/DL See_Comment [Aut omated message] (test code = 2465-3) The sys tem which generated this result transmit andrew reference range : 700-1600 MG/DL. The reference range was not used to interpret this result as normal/abnormal . IMMUNOGLOBULIN M (IgM) 70 MG/DL See_Comment [Aut omated message] (test code = 2472-9) The sys tem which generated this result transmit andrew reference range : 40-230 MG/DL. T he reference range was not used to interpret this result as normal/abnormal . INTERPRETATION, (NOTE) IMMUNOTYPING (IT): (test code = 80852-8) INTERPRETATION, SPEP: (NOTE) (test code = 39682-4) PROTEIN, TOTAL (test 7.1 G/DL See_Comment [Autom ated message] code = 2885-2) The system [facility] generated this result transmit andrew reference range : 6.1-8.3 G/DL. T he reference range was not used to interpret this result as normal/abnormal . ALBUMIN/CREATININE RATIO, RANDOM [id number] 00:00:00 Test Item Value Reference Range Interpretation Comments ALBUMIN, URINE, 5.9 MG/DL NOT ESTAB MG/DL RANDOM (test code = 24713-3) CALC ALBUMIN/CREAT, 38 MG/G See_Comment H [Automa andrew message] RND (test code = The system which 97728-0) generated this result transmitted ref erence range: <30 MG/G . The reference range was not used to interpr et this result as normal/abnormal . CREATININE, URINE, 154.9 MG/DL NOT ESTAB MG/DL CONC. (test code = 2161-8) COMPREHENSIVE METABOLIC [id number] 00:00:00 Test Item Value Reference Range Interpretation Comments ALBUMIN (test code = 4.0 G/DL See_Comment [Autom ated message] 1751-7) The system [employer] generated this result transmit andrew reference range : 3.5-5.2 G/DL. T he reference range was not used to interpret this result as normal/abnormal . ALKALINE PHOSPHATASE 65 U/L See_Comment [Autom ated message] (test code = 6768-6) The sys tem which generated this result transmit andrew reference range : 40-142 U/L. The reference range was not used to interpret this result as normal/abnormal . BILIRUBIN, TOTAL 0.6 MG/DL See_Comment [Automated message] (test code = 1975-2) The sys tem which generated this result transmit andrew reference range : <=1.2 MG/DL. Th e reference range was not used to interpret this result as normal/abnormal . BUN (test code = 16 MG/DL See_Comment [Automated message] 3094-0) The system [employer] generated this result transmit andrew reference range : 8-23 MG/DL. The reference range was not used to interpret this result as normal/abnormal . CALCIUM (test code = 9.5 MG/DL See_Comment [Autom ated message] 70901-7) The system [employer] generated this result transmit andrew reference range : 8.5-10.5 MG/DL. The reference range was not used to interpret this result as normal/abnormal . CALC A/G RATIO (test 1.3 RATIO See_Comment [Autom ated message] code = 1759-0) The system [facility] generated this result transmit andrew reference range : 1.0-2.6 RATIO. The reference range was not used to interpret this result as normal/abnormal . CALC BUN/CREAT (test 21 RATIO See_Comment [Autom ated message] code = 3097-3) The system [facility] generated this result transmit andrew reference range : 6-28 RATIO. The reference range was not used to interpret this result as normal/abnormal . CALC GLOBULIN (test 3.1 G/DL See_Comment [Automa andrew message] code = 31976-4) The system [facility] generated this result transmit andrew reference range : 1.9-3.7 G/DL. T he reference range was not used to interpret this result as normal/abnormal . CARBON DIOXIDE (test 28 MEQ/L See_Comment [Autom ated message] code = 1963-8) The system [facility] generated this result transmit andrew reference range : 19-31 MEQ/L. Th e reference range was not used to interpret this result as normal/abnormal . CHLORIDE (test code 101 MEQ/L See_Comment [Automa andrew message] = 5-0) The system [facility] generated this result transmit andrew reference range : 95-107 MEQ/L. T he reference range was not used to interpret this result as normal/abnormal . CREATININE (test 0.77 MG/DL See_Comment [Automated message] code = 2160-0) The system [facility] generated this result transmit andrew reference range : 0.60-1.30 MG/DL . The reference range was not used to interpret this result as normal/abnormal . eGFR (2020 CKD-EPI) 76 ML/MIN/1.73 See_Comment [Auto mated message] (test code = The system [facility] 22366-0) generated this result transmit andrew reference range : >60 ML/MIN/1.73. Th e reference range was not used to interpret this result as normal/abnormal . GLUCOSE (test code = 97 MG/DL See_Comment [Autom ated message] 1558-6) The system [facility] generated this result transmit andrew reference range : 70-99 MG/DL. Th e reference range was not used to interpret this result as normal/abnormal . POTASSIUM (test code 4.4 MEQ/L See_Comment [Autom ated message] = 9943-3) The system [employer] generated this result transmit andrew reference range : 3.5-5.4 MEQ/L. The reference range was not used to interpret this result as normal/abnormal . PROTEIN, TOTAL (test 7.1 G/DL See_Comment [Autom ated message] code = 2885-2) The system [employer] [facility] generated this result transmit andrew reference range : 6.1-8.3 G/DL. T he reference range was not used to interpret this result as normal/abnormal . AST (test code = 15 U/L See_Comment [Automated message] 1920-8) The system [employer] generated this result transmit andrew reference range : 9-40 U/L. The reference range was not used to interpret this result as normal/abnormal . ALT (test code = 12 U/L See_Comment [Automated message] 1742-6) The system [employer] generated this result transmit andrew reference range : 5-40 U/L. The reference range was not used to interpret this result as normal/abnormal . SODIUM (test code = 141 MEQ/L See_Comment [Automa andrew message] 2951-2) The system [employer] generated this result transmit andrew reference range : 133-146 MEQ/L. The reference range was not used to interpret this result as normal/abnormal . TISSUE [id number] 14:09:00Surgical Pathology Report Case: [id number] Authorizing Provider: Tiffanie Watt MD Collected: 03/16/2020 12:32 PM Ordering Location: [facility] Received: 03/16/2020 01:28 PM PERIOPERATIVE S JIMMY Pathologist: Chetan Francis MD Specimen: Plaque, Carotid Artery Plaque ARTERY, RIGHT CAROTID, ENDARTERECTOMY:CALCIFIC ATHEROSCLEROTIC PLAQUE Signing Pathologist Direct Phone Line: [phone] signed by Chetan Francis MD on 03/21/2020 at 2:09 [id number]; [id number] stenosis, rightCarotid artery plaqueA. Received fresh labeled with the patient's name, medical record number and"plaque" is a previously incised tubular portion of yellow-kilpatrick plaque measuring 3.5 cm in length andranging 0.6-0.8 cm in diameter. The specimen is serially sectioned to reveal calcifications measuring up to 0.3 cm in thickness. Department Of Sociology Chair sections are submitted in A1, following decalcification.ALLAN Aguilar PA ([facility])cmPerformedPOCT-GLUCOSE [id number] 12:05:00 Test Item Value Reference Range Interpretation Comments POC-GLUCOSE METER 135 mg/dL 70-110 H : TESTED A T [facility] 6720 (BEAKER) (test code = [facility], 1538) [address]: Baggage And Mail Agent/Techni juliano ID = [id number] for ABDIAS PENNY BASIC METABOLIC [id number] 07:45:00 Test Item Value Reference Range Interpretation [...] 1092) DATA TO CALCULA TE ESTIMATED GFR. Baggage And Mail Agent ID - AAHAMIDPOCT-GLUCOSE [id number] 07:32:00 Test Item Value Reference Range Interpretation Comments POC-GLUCOSE METER 171 mg/dL 70-110 H : TESTED A T [facility] 6720 (BEAKER) (test code = [facility], 1538) [address]: Baggage And Mail Agent/Techni juliano ID = [id number] for ABDIAS PENNY [id number] 13:42:00 Test Item Value Reference Range Interpretation Comments CREATININE (BEAKER) 0.99 mg/dL 0.57-1.25 (test code = 358) EGFR (BEAKER) (test INSUFFIC IENT CLINICAL code = 1092) DATA TO CALCULA TE ESTIMATED GFR. Baggage And Mail Agent ID - JESSICA [id number] 13:40:00 Test Item Value Reference Range Interpretation Comments SODIUM (BEAKER) (test code = 381) 142 meq/L 136-145 POTASSIUM (BEAKER) (test code = 3.4 meq/L 3.5-5.1 L 379) CHLORIDE (BEAKER) (test code = 382) 111 meq/L 98-107 H CO2 (BEAKER) (test code = 355) 22 meq/L 22-29 Baggage And Mail Agent ID - JESSICA CCBC (HEMOGRAM ONLY)2020-03-16 13:22:00 [...] 0-0 (BEAKER) (test code = 413) POCT-GLUCOSE [id number] 08:14:00 Test Item Value Reference Range Interpretation Comments POC-GLUCOSE METER 138 mg/dL 70-110 H : TESTED A T [facility] 6720 (BEAKER) ([facility] = 1538) [address]: Baggage And Mail Agent/Techni juliano ID = [id number] for JORD AN, LACRYSTAL SARS-COV2/RT-PCR ([facility])2020-03-14 18:25:00 Test Item Value Reference Range Interpretation Comments SARS-COV2/RT-PCR (test Negative Not Detected, Negative, code = 5870022) See external report for linked test SARS-COV-2 PERFORMING LAB [facility] MASHA (test code = 8710932) Negative result for this test determines that [...] of the Act.Fact Sheet for Healthcare Prov iders:https://www.[employer]/sites/default/files/product/documents/Fact_Sheet_HC _Xsdflqzfg_Ltnv_OVFO-YqJ-0.pdfFact Sheet for Healthcare Patients:https://www.[employer]ma/sites/default/files/product/docume nts/Wsqs_Sgjep_Wrvuccsx_Auhj_OGNH-EyC-9.pdfPerforming Laboratory:[facility], [place] [address]RYBQH METABOLIC PANEL 2020-03-14 12:12:00 Test Item Value [...] 1092) DATA TO CALCULA TE ESTIMATED GFR. Baggage And Mail Agent ID - [place] FPROTHROMBIN TIME/[id number] 12:05:00 Test Item Value Reference Range Interpretation [...] mechanical heart valves.CBC W/PLT COUNT & AUTO [id number] 11:49:00 Test Item Value Reference Range Interpretation [...] PERCENT (BEAKER) (test code = 2801) HEMOGLOBIN [id number] 21:46:00 Test Item Value Reference Range Interpretation Comments HEMOGLOBIN A1C (BEAKER) (test code = 7.2 % 4.3-6.1 H 368) T4, [id number] 13:56:00 Test Item Value Reference Range Interpretation Comments FREE T4 (BEAKER) (test code = 655) 0.77 ng/dL 0.70-1.48 TSH/FREE T4 IF [id number] 07:57:00 Test Item Value Reference Range Interpretation Comments THYROID STIMULATING HORMONE 7.16 uIU/mL 0.35-4.94 H (BEAKER) (test code = 772) CBC W/PLT COUNT & AUTO [id number] 07:33:00 Test Item Value Reference Range Interpretation [...] (BEAKER) (test code = 2801) BASIC METABOLIC [id number] 07:28:00 Test Item Value Reference Range Interpretation [...] m DATA TO CALCULA TE ESTIMATED GFR. [id number] 07:19:00 Test Item Value Reference Range Interpretation Comments PHOSPHORUS (BEAKER) (test code = 2.4 mg/dL 2.3-4.7 604) [id number] 07:19:00 Test Item Value Reference Range Interpretation Comments MAGNESIUM (BEAKER) (test code = 2.1 mg/dL 1.6-2.6 627) LIPID [id number] 07:19:00 Test Item Value Reference Range Interpretation [...] Borderline 130-159 High 160-189 Very High >=190CALCIUM, [id number] 06:36:00 Test Item Value Reference Range Interpretation Comments CALCIUM IONIZED (BEAKER) (test 1.02 mmol/L 1.12-1.27 L code = 698) PH, BLOOD (BEAKER) (test code = 7.43 1810) CREATINE KINASE (CK), TOTAL AND [id number] 00:37:00 Test Item Value Reference Range Interpretation Comments CREATINE KINASE TOTAL (BEAKER) 180 U/L 29-200 (test code = 380) CREATINE KINASE-MB (BEAKER) (test 1.9 ng/mL 0.0-6.6 code = 750) CREATINE KINASE-MB INDEX (BEAKER) 1.1 % (test code = 395) Effective 04/13/2014: CK-MB Reference Range ChangeNew: 0.0-6.6 Previous: 0.0-4.9CK-MB Reference Range:<6.7 Normal6.7-10.0 Borderline>10.0 Abnormal CREATINE KINASE (CK), TOTAL AND [id number] 15:57:00 Test Item Value Reference Range Interpretation Comments CREATINE KINASE TOTAL (BEAKER) 183 U/L 29-200 (test code = 380) CREATINE KINASE-MB (BEAKER) (test 2.0 ng/mL 0.0-6.6 code = 750) CREATINE KINASE-MB INDEX (BEAKER) 1.1 % (test code = 395) Effective 04/13/2014: CK-MB Reference Range ChangeNew: 0.0-6.6 Previous: 0.0-4.9CK-MB Reference Range:<6.7 Normal6.7-10.0 Borderline>10.0 Abnormal
[2023-04-22 16:10] LABS: Absolute Lymphocytes (CBC) 0.8 K/uL (0.7-4.9); Hematocrit 32.8 % (39.6-49.0); Lymphocytes % 8.3 % (15.3-44.8); MCV 66.5 fL (80-100); MPV 7.5 fL (7.6-11.3); Platelets 338 thou/uL (152-406); RBC Red Blood Cell Count 4.93 M/uL (4.33-5.43)
[2023-04-22 16:33] LABS: Albumin 3.8 g/dL (3.4-5.0); Bilirubin Direct 0.2 mg/dL (0-0.2); Bilirubin Indirect, Calculated 0.5 mg/dL (0.2-0.8); Bilirubin Total 0.7 mg/dL (0.2-1.0); Potassium 3.7 mEq/L (3.5-5.1)
[2023-04-22 16:37] LABS: Troponin High Sensitivity 65.8 pg/mL (<58.9)
[2023-04-22 16:38] LABS: Magnesium 1.9 mg/dL (1.6-2.4)
--- NOTE | 2023-04-22 16:40 | RAD REPORT ---
EXAM DESCRIPTION: RAD - Chest Pa And Lat (2 Views) - 04/22/2023 4:08 pm CLINICAL HISTORY: COUGH COMPARISON: Chest Single View dated 05/06/2021; Chest Single View dated 05/02/2021; Chest Single View dated 04/30/2021; Chest Pa And Lat (2 Views) dated 03/04/2020 TECHNIQUE: PA and lateral views of the chest were obtained. FINDINGS: The lungs show central interstitial prominence. Heart size is mildly enlarged. Prominent c entral vasculature is within normal limits. No pleural effusion or pneumothorax seen. No acute bony f inding noted. IMPRESSION: Findings suggestive of central congestion/ CHF. No evidence of focal consolidation.
--- NOTE | 2023-04-22 17:19 | EDPHYS ---
Physician Documentation [facility] Name: Eddie Gunn Age: 83 yrs Sex: Male : 1940 Arrival Date: 04/22/2023 Time: 15:28 Bed 15 Private MD: ED Physician Nishant Pinedo HPI: 04/22 15:45 This 83 yrs old Male presents to ER via Ambulatory with complaints of Cough. ms3 15:45 83-year-old male with past medical history of congestive heart failure, CVA, ms3 hyperlipidemia, hypertension presents to the emergency department for cough that has been ongoing for 2 weeks and becoming worse. Patient denies shortness of breath, fevers, chills. Patient states the cough is productive of white phlegm. Patient endorses foot swelling. Patient denies pain. Historical: - Allergies: 15:36 NKA; mb9 - PMHx: 15:36 Carotid blockage; CHF; CVA; Hyperlipidemia; Hypertension; mb9 - PSHx: 15:36 Cholecystectomy; hernia; mb9 - Immunization history:: Adult Immunizations up to date. - Social history:: Smoking status: Patient denies any tobacco usage or history of. ROS: 15:45 Constitutional: Negative for fever, and chills. Neck: Negative for injury, pain, and ms3 swelling, Cardiovascular: Negative for chest pain, and palpitations. 15:45 Abdomen/GI: Negative for abdominal pain, nausea, vomiting, diarrhea, and constipation, MS/Extremity: Negative for injury and deformity, Skin: Negative for injury, rash, and discoloration, 15:45 Respiratory: Positive for cough, 15:45 All other systems are negative, Exam: 15:45 Constitutional: This is a well developed, well nourished patient who is awake, alert, ms3 and in no acute distress. Head/Face: Normocephalic, atraumatic. Neck: Trachea midline, no cervical lymphadenopathy. Supple, full range of motion without nuchal rigidity, or vertebral point tenderness. No Meningismus. Chest/axilla: Normal chest wall appearance and motion. Nontender with no deformity. Cardiovascular: Regular rate and rhythm with a normal S1 and S2. No gallops, murmurs, or rubs. Normal PMI, no JVD. No pulse deficits. Respiratory: Lungs have equal breath sounds bilaterally, clear to auscultation and percussion. No rales, rhonchi or wheezes noted. No increased work of breathing, no retractions or nasal flaring. Abdomen/GI: Soft, non-tender, with normal bowel sounds. No distension or tympany. No guarding or rebound. No evidence of tenderness throughout. Skin: Warm, dry with normal turgor. Normal color with no rashes, no lesions, and no evidence of cellulitis. MS/ Extremity: Pulses equal, no cyanosis. Neurovascular intact. Full, normal range of motion. 17:20 ECG was reviewed by the Attending Physician. ms3 Vital Signs: 15:34 BP 160 / 99; Pulse 115; Resp 18; Temp 98.6; Pulse Ox 97% on R/A; Weight 90.72 kg; mb9 Height 5 ft. 6 in. ; Pain 0/10; 16:13 Pulse 93; Pulse Ox 97% on R/A; tm6 16:23 BP 161 / 86; tm6 16:39 BP 149 / 78; Pulse 87; Pulse Ox 96% ; tm6 17:26 BP 185 / 111; Pulse 101; Resp 19; Pulse Ox 96% on R/A; Pain 0/10; tm6 19:14 BP 126 / 80; Pulse 92; Resp 18 S; Pulse Ox 98% on R/A; as6 21:26 BP 108 / 78; Pulse 86; Resp 18 S; Pulse Ox 98% on R/A; as6 15:34 Body Mass Index 32.28 (90.72 kg, 167.64 cm) mb9 15:34 Pain Scale: Adult mb9 17:26 Pain Scale: Adult tm6 MDM: 15:42 Patient medically screened. ms3 15:45 Differential Diagnosis: Bronchitis Influenza Upper Respiratory Infection Pneumonia ms3 Other Heart failure. 17:18 Data reviewed: vital signs, nurses notes, lab test result(s), radiologic studies, and ms3 as a result, I will admit patient. Consideration of Admission/Observation Patient was admitted/placed on observation. Management of patient was discussed with the following: Hospitalist: Dr Redd. I considered the following discharge prescriptions or medication management in the emergency department Medications were administered in the Emergency Department. See MAR. Independent interpretation of the following test(s) in the Emergency Department EKG: See my EKG interpretation above. Historians other than the Patient: Family Member: Graddaughter. Counseling: I had a detailed discussion with the patient and/or guardian regarding the historical points, exam findings, and any diagnostic results supporting the discharge/admit diagnosis, lab results, radiology results, the need for further work-up and treatment in the hospital. ED course: Discussed necessity for admission with patient and his granddaughter. They understand and agree with plan. All questions were answered. 04/22 15:42 Order name: Basic Metabolic Panel; Complete Time: 16:57 ms3 04/22 15:42 Order name: CBC with Diff ms3 04/22 15:42 Order name: LFT's; Complete Time: 16:57 ms3 04/22 15:42 Order name: Magnesium; Complete Time: 16:57 ms3 04/22 15:42 Order name: NT PRO-BNP; Complete Time: 16:57 ms3 04/22 15:42 Order name: Troponin HS; Complete Time: 16:57 ms3 04/22 19:21 Order name: CBC Smear Scan [facility] 04/22 21:21 Order name: Urinalysis w/ reflexes [facility] 04/22 21:21 Order name: Lipid Profile [facility] 04/22 21:21 Order name: Lipid Profile [facility] 04/22 21:21 Order name: Troponin High Sensitivity [facility] 04/22 21:21 Order name: Troponin High Sensitivity [facility] 04/22 21:21 Order name: Troponin High Sensitivity [facility] 04/22 21:21 Order name: Troponin High Sensitivity [facility] 04/22 15:42 Order name: Chest Pa And Lat (2 Views) XRAY; Complete Time: 16:57 ms3 04/22 15:42 Order name: EKG; Complete Time: 15:42 ms3 04/22 15:42 Order name: Cardiac monitoring; Complete Time: 16:02 ms3 04/22 15:42 Order name: EKG - Nurse/Tech; Complete Time: 16:02 ms3 04/22 15:42 Order name: IV Saline Lock; Complete Time: 15:52 ms3 04/22 15:42 Order name: Labs collected and sent; Complete Time: 15:52 ms3 04/22 15:42 Order name: O2 Per Protocol; Complete Time: 15:47 ms3 04/22 15:42 Order name: O2 Sat Monitoring; Complete Time: 15:47 ms3 EC:20 Rate is 102 beats/min. Rhythm is regular. Right axis deviation noted. IL interval is ms3 normal. QRS interval is prolonged. Clinical impression: NSR w/ Non-specific ST/T Changes and non-specific interventricular block. Interpreted by me. Reviewed by me. Administered Medications: 17:46 Drug: Furosemide IVP 40 mg IVP once; give over 2 minutes Route: IVP; Site: right tm6 antecubital; 19:44 Follow up: Response: No adverse reaction as6 Disposition Summary: 04/22/23 17:18 Hospitalization Ordered Notes: Hospitalization Status: Inpatient Admission ms3 Location: Telemetry/MedSurg (Inpatient) ms3 Condition: Stable ms3 Problem: new ms3 Symptoms: are unchanged ms3 Bed/Room Type: Standard ms3 Provider: Juan Boogie(04/22/23 17:38) ms3 Room Assignment: [facility](04/22/23 21:25) Diagnosis - Heart failure, unspecified ms3 - Cough ms3 - Elevated Troponin ms3 - Essential (primary) hypertension ms3 Forms: - Medication Reconciliation Form ms3 - SBAR form ms3 - Leadership Thank You Letter ms3 Signatures: Dispatcher [employer] Alta Anand RN RN Nishant Pond DO DO ms3 Cammy García, RN RN mb9 Parveen Andrade RN RN tm6 Felix Manzanares RN as6 Corrections: (The following items were deleted from the chart) 17:38 17:18 Kp Redd ms3 ms3 21:25 17:18 ms3 kl
--- NOTE | 2023-04-22 17:19 | ER ---
Nurse's Notes [facility] Name: Eddie Gunn Age: 83 yrs Sex: Male : 1940 Arrival Date: 04/22/2023 Time: 15:28 Bed 15 Private MD: Diagnosis: Heart failure, unspecified;Cough;Elevated Troponin;Essential (primary) hypertension Presentation: 04/22 15:34 Chief complaint: Patient states: "I've had a cough for weeks and it's been getting mb9 worse today so my family made me come here to get it checked out." Pt denies HERPETOLOGIST/SOB. Coronavirus screen: Vaccine status: Patient reports being unvaccinated. Ebola Screen: No symptoms or risks identified at this time. Initial Sepsis Screen: Does the patient meet any 2 criteria? No. Patient's initial sepsis screen is negative. Does the patient have a suspected source of infection? No. Patient's initial sepsis screen is negative. Risk Assessment: Do you want to hurt yourself or someone else? Patient reports no desire to harm self or others. Onset of symptoms was April 22, 2023. 15:34 Method Of Arrival: Ambulatory mb9 15:34 Acuity: LUIS 3 mb9 Triage Assessment: 15:36 General: Appears in no apparent distress. Behavior is calm, cooperative. Pain: Denies mb9 pain. Neuro: Morse Agitation-Sedation Scale (RASS): 0 - Alert and Calm Level of Consciousness is awake, alert, obeys commands, Oriented to person, place, time, situation, Appropriate for age. Cardiovascular: Patient's skin is warm and dry. Respiratory: Reports cough that is Airway is patent Respiratory effort is even, unlabored, Respiratory pattern is regular, symmetrical. GI: No signs and/or symptoms were reported involving the gastrointestinal system. : No signs and/or symptoms were reported regarding the genitourinary system. Derm: Skin is pink, warm \\T\\ dry. Musculoskeletal: Range of motion: intact in all extremities. Historical: - Allergies: 15:36 NKA; mb9 - PMHx: 15:36 Carotid blockage; CHF; CVA; Hyperlipidemia; Hypertension; mb9 - PSHx: 15:36 Cholecystectomy; hernia; mb9 - Immunization history:: Adult Immunizations up to date. - Social history:: Smoking status: Patient denies any tobacco usage or history of. Screenin:04 [facility] ED Fall Risk Assessment (Adult) History of falling in the last 3 months, tm6 including since admission No falls in past 3 months (0 pts). Abuse screen: Denies threats or abuse. Denies injuries from another. Nutritional screening: No deficits noted. Tuberculosis screening: No symptoms or risk factors identified. Assessment: 16:04 General: Appears in no apparent distress. Behavior is calm, cooperative, appropriate tm6 for age. Pain: Denies pain. Neuro: Level of Consciousness is awake, alert, obeys commands, Oriented to person, place, time, situation. Cardiovascular: Capillary refill < 3 seconds Patient's skin is warm and dry. Respiratory: Reports cough that is Breath sounds with wheezes bilaterally. GI: Abdomen is round non-distended. : No signs and/or symptoms were reported regarding the genitourinary system. EENT: No signs and/or symptoms were reported regarding the EENT system. Derm: No signs and/or symptoms reported regarding the dermatologic system. Musculoskeletal: No signs and/or symptoms reported regarding the musculoskeletal system. 17:26 Reassessment: Patient appears in no apparent distress at this time. Patient and/or tm6 family updated on plan of care and expected duration. Pain level reassessed. Patient is alert, oriented x 3, equal unlabored respirations, skin warm/dry/pink. 19:13 Reassessment: Patient appears in no apparent distress at this time. Patient and/or as6 family updated on plan of care and expected duration. Pain level reassessed. Patient is alert, oriented x 3, equal unlabored respirations, skin warm/dry/pink. no complaints or concerns at this time, family at bedside. Vital Signs: 15:34 BP 160 / 99; Pulse 115; Resp 18; Temp 98.6; Pulse Ox 97% on R/A; Weight 90.72 kg; mb9 Height 5 ft. 6 in. ; Pain 0/10; 16:13 Pulse 93; Pulse Ox 97% on R/A; tm6 16:23 BP 161 / 86; tm6 16:39 BP 149 / 78; Pulse 87; Pulse Ox 96% ; tm6 17:26 BP 185 / 111; Pulse 101; Resp 19; Pulse Ox 96% on R/A; Pain 0/10; tm6 19:14 BP 126 / 80; Pulse 92; Resp 18 S; Pulse Ox 98% on R/A; as6 21:26 BP 108 / 78; Pulse 86; Resp 18 S; Pulse Ox 98% on R/A; as6 15:34 Body Mass Index 32.28 (90.72 kg, 167.64 cm) mb9 15:34 Pain Scale: Adult mb9 17:26 Pain Scale: Adult tm6 Vitals: 16:23 Cardiac Rhythm Assessment Irregular. tm6 16:39 Cardiac Rhythm Assessment. tm6 ED Course: 15:29 Patient arrived in ED. rg4 15:30 Nishant Pinedo DO is Attending Physician. ms3 15:34 Arm band placed on. mb9 15:36 Triage completed. mb9 15:49 Parveen Andrade, MIKE is Primary Nurse. tm6 15:52 Inserted saline lock: 20 gauge in right antecubital area, using aseptic technique. ld1 Blood collected. 15:54 Basic Metabolic Panel Sent. bc6 15:54 CBC with Diff Sent. bc6 15:55 Magnesium Sent. bc6 15:55 NT PRO-BNP Sent. bc6 15:55 Troponin HS Sent. bc6 16:04 Patient has correct armband on for positive identification. Placed in gown. Bed in low tm6 position. Call light in reach. Side rails up X2. Provided Education on: need for cardiac monitoring. Client placed on continuous cardiac and pulse oximetry monitoring. NIBP monitoring applied. personnel monitor on. Door closed. Noise minimized. Lights dimmed. 16:04 No provider procedures requiring assistance completed. tm6 16:10 Chest Pa And Lat (2 Views) XRAY In Process Unspecified. EDMS 17:18 Kp Redd MD is Hospitalizing Provider. ms3 17:38 Juan Boogie MD is Hospitalizing Provider. ms3 21:40 Patient admitted, IV remains in place. as6 Administered Medications: 17:46 Drug: Furosemide IVP 40 mg IVP once; give over 2 minutes Route: IVP; Site: right tm6 antecubital; 19:44 Follow up: Response: No adverse reaction as6 Medication: 16:04 VIS not applicable for this client. tm6 Output: 19:14 Urine: 500ml (Voided); Total: 500ml. as6 Outcome: 17:18 Decision to Hospitalize by Provider. ms3 21:40 Admitted to Med/surg family with patient, via wheelchair, room 216, with chart, as6 21:40 Condition: stable 21:40 Instructed on the need for admit, 21:54 Patient left the ED. as6 Signatures: Dispatcher [employer] ED Ladonna Gordon rg4 Nishant Pinedo, DO DO ms3 Lucita Pinedo, RN RN ld1 Felix Manzanares RN RN as6 Cammy García RN RN mb9 Lizet Newman [facility] Parveen Andrade RN RN tm6 Corrections: (The following items were deleted from the chart) 15:37 15:34 BP 160 / 99; Pulse 95bpm; Resp 18bpm; Pulse Ox 97% RA; Temp 98.6F; 90.72 kg; mb9 Height 5 ft. 6 in.; BMI: 32.2; Pain 0/10, Adult; mb9
[2023-04-22] MEDS ORDERED: FUROSEMIDE 40 MG/4 ML VIAL ONE (17:53)
[2023-04-22 19:20] LABS: Anisocytosis 1+; Platelet Estimate ADEQ; Poikilocytosis 1+; White Blood Cell Scan OK (OK)
[2023-04-22 19:32] LABS: Blood Morphology Comment NOTED (NOT SEEN)
[2023-04-22] MEDS ORDERED: ONDANSETRON 4 MG/2 ML VIAL IV PRN (21:16)
[2023-04-22] MEDS ORDERED: ACETAMINOPHEN 325 MG TABLET PO PRN (21:16)
--- NOTE | 2023-04-22 21:25 | P.HP ---
Certification for Inpatient Patient admitted to: Inpatient With expected LOS: >2 Midnights Practitioner: I am a practitioner with admitting privileges, knowledge of patient current condition, hospital course, and medical plan of care. Services: Services provided to patient in accordance with Admission requirements found in Title 42 Section 412.3 of the Code of Federal Regulations Patient History Date of Service: 04/23/23 Reason for admission: CHF exacerbation History of Present Illness: 83-year-old male patient medical history significant for hypertension, hyperlipidemia, diabetes type 2, history of CHF admitted for management of CHF exacerbation. He has been having issues with cough and shortness of breath on lying down and had issues with orthopnea and PND symptoms. he wakes up feeling short of breath. He also reported significant swelling of the lower extremity and was evaluated emergency room by family members. Initial workup was concerning for suspicion for possible pneumonia however on physical exam she was found to have significant lower extremity edema up to the knees depicting worsening CHF symptoms. He was asked to be admitted for inpatient care. He denies chest pain, fever, chills, productive cough. Allergies No Known Allergies Allergy (Verified 03/04/20 14:50) Home Medications: Aspirin [Aspirin EC 81 MG] 81 mg PO DAILY 06/24/17 Atorvastatin Calcium [Lipitor] 40 mg PO BEDTIME 06/24/17 Clopidogrel Bisulfate [Plavix] 75 mg PO DAILY 06/24/17 Metoprolol Succinate [Toprol Xl] 200 mg PO DAILY 06/24/17 Levothyroxine Sodium 50 mcg PO [id number] 05/01/21 Metformin HCl [Metformin HCl ER] 750 mg PO BIDWM 05/01/21 Valsartan [Diovan] 320 mg PO DAILY 05/01/21 Furosemide [Lasix] 40 mg PO BIDL #60 tab 05/02/21 Hydralazine [Apresoline*] 25 mg PO BID #60 tab 05/02/21 Potassium Chloride 10 meq PO BID 04/22/23 - Past Medical/Surgical History -: HTN -: Hyperlipidemia -: Stroke (Dec 2016) -: Carotid endarterectomy -: Coronary artery disease with stents - Social History Alcohol use: No CD- Drugs: No Caffeine use: Yes Review of Systems General: Unremarkable Eyes: Unremarkable ENT: Unremarkable Respiratory: Cough, Shortness of Breath, SOB with Excertion Cardiovascular: Orthopnea, Paroxysmal Noc. Dyspnea Gastrointestinal: Unremarkable Genitourinary: Unremarkable Musculoskeletal: Unremarkable Integumentary: Unremarkable Neurological: Unremarkable Physical Examination - Physical Exam General: Alert, Oriented x3 HEENT: Atraumatic Neck: Supple Respiratory: Normal air movement Cardiovascular: Regular rate/rhythm, Normal S1 S2 Gastrointestinal: Soft and benign Musculoskeletal: Swelling Neurological: Normal speech - Studies Laboratory Data (last 24 hrs) 04/22/23 04/22/23 15:55 15:55 WBC 10.10 Hgb 9.7 L Hct 32.8 L Plt Count 338 Sodium 135 L Potassium 3.7 BUN 19 H Creatinine 1.01 Glucose 133 H Magnesium 1.9 Total Bilirubin 0.7 AST 9 L ALT 29 Alkaline Phosphatase 77 Assessment and Plan - Plan CHF exacerbation. Patient has had significant worsening symptoms with orthopnea, PND and SOB on exertion. He also has pedal edema. Will have a echocardiogram to evaluate patient's heart. Will continue Lasix 40 mg IV every 8. Monitor strict input and output Have him on low-sodium diet. Cardiology consulted for management recommendation. Diabetes type 2: Will continue sliding scale insulin for glucose control and carb restricted diet. Hypertension: Monitor vital signs per unit protocol and continue antihypertensive medication. Hyperlipidemia: We will continue statin therapy. Prophylaxis: Lovenox for DVT prophylaxis CODE STATUS: Full code. Disposition: We will treat his CHF exacerbation and discharge him when he is deemed clinically stable. - Advance Directives Does patient have a Living Will: No Does patient have a Durable POA for Healthcare: No
[2023-04-23] MEDS ORDERED: D50W 25 GM/50 ML SYRINGE IV PRN (04:29)
[2023-04-23] MEDS ORDERED: GLUCAGON 1 MG/VIAL IM PRN (04:29)
[2023-04-23] MEDS ORDERED: D10W 125 ML IV PRN (04:31)
[2023-04-23 07:12] LABS: Troponin High Sensitivity 62.1 pg/mL (<58.9)
[2023-04-23 07:15] LABS: Potassium 3.4 mEq/L (3.5-5.1)
[2023-04-23] MEDS ORDERED: POTASSIUM 25 MEQ EFFERV TAB PO ONE (08:15)
[2023-04-23] MEDS: ASPIRIN EC 81 MG TAB PO SCH (08:34)
[2023-04-23] MEDS: FUROSEMIDE 40 MG/4 ML VIAL IV SCH ×3 (08:35→17:19)
[2023-04-23] MEDS: INSULIN REGULAR (HUMAN) 100 UNIT/ML SQ SCH ×4 (08:36→21:21)
[2023-04-23] MEDS ORDERED: ENOXAPARIN 40 MG/0.4 ML SQ SCH (09:00)
--- NOTE | 2023-04-23 11:49 | CON ---
Date of Consultation: 04/23/2023 Reason For Consultation: CHF. History Of Present Illness: 83-year-old, history of hypertension, diabetes, dyslipidemia, CHF, prese nted with worsening lower extremity edema, shortness of breath, and orthopnea. Shortness of breath e dariusz at rest. Denies having any chest pain. No nausea, vomiting, or diarrhea. He has no fever or co ugh. Past Medical History: As outlined above in the HPI. Medications: Refer to reconciliation sheet for detailed list. Allergies: NO KNOWN DRUG ALLERGIES. Family History: No premature coronary artery disease or cancer. Social History: Does not smoke or drink. Does not use any drugs. Review of Systems: All systems reviewed and they were negative except as mentioned in the HPI. Physical Examination: Vital Signs: Reviewed. Head and Neck: Pupils are equal, reactive to light. Intact eye movements. No JVD. No cervical lym phadenopathy. Neck is supple. Thyroid is not enlarged. Lungs: Clear to auscultation bilaterally. No rhonchi, wheezing, or crackles. No accessory muscle u se. Heart: Irregularly irregular. No extra sounds. Abdomen: Soft, nontender. Bowel sounds positive. No organomegaly. No masses or hernia. No rigidi ty or rebound. Extremities: 3+ edema all the way to above the knee level. Neurologic: Alert, awake, oriented x3. No acute focal deficits appreciated. Lymph Nodes: No cervical or axillary lymphadenopathy. Investigations: BUN 19, creatinine 0.98. Troponin 65. Assessment And Recommendations: 1.Acute on chronic congestive heart failure exacerbation. Patient is severely fluid overloaded. Ag ree with IV Lasix at 40 mg q.8 hours. Monitor BUN and creatinine carefully. 2.Atrial fibrillation with rapid ventricular response. Start him on amiodarone drip 150 mg over 10 minutes and then 1 mg/minute for 6 hours and then 0.5 mg/minute for 16 hours and recommend start on E liquis 5 mg twice a day. 3.Elevated troponin. No chest pain. This is due to the congestive heart failure and it is demand i schemia. We will plan for ischemia workup as an outpatient. SR/MODL Voice ID: [id number] Report ID: [id number]
[2023-04-23] MEDS ORDERED: AMIODARONE HCL 150 MG in D5W 100 ML IV STA (12:55)
[2023-04-23] MEDS ORDERED: AMIODARONE HCL 900 MG in Dextrose 5%-Water 482 ML IV SCH ×2 (13:00→19:00)
--- NOTE | 2023-04-23 15:23 | P.PN ---
Subjective Date of Service: 04/23/23 Chief Complaint: CHF exacerbation Patient has no new complaint. Bilateral lower extremities still significantly swollen. Patient denies shortness of breath. He has been in atrial fibrillation. Physical Examination - Vital Signs Temperature: 100.1 F Blood Pressure: 133/60 Pulse: 95 Respirations: 18 Pulse Ox (%): 93 - Studies Laboratory Data (last 24 hrs) 04/22/23 04/22/23 15:55 15:55 WBC 10.10 Hgb 9.7 L Hct 32.8 L Plt Count 338 Sodium 135 L Potassium 3.7 BUN 19 H Creatinine 1.01 Glucose 133 H Magnesium 1.9 Total Bilirubin 0.7 AST 9 L ALT 29 Alkaline Phosphatase 77 Assessment And Plan - Plan Physical Exam General: Alert, Oriented x3 HEENT: Atraumatic Neck: Supple, no elevated JVD Respiratory: Normal air movement. Clear to auscultation bilaterally Cardiovascular: Irregular rhythm, Normal S1 S2 Gastrointestinal: Soft and benign Musculoskeletal: Bilateral lower extremities with Neurological: Normal speech, no focal motor deficit. Assessment and plan Acute on chronic systolic heart failure Patient son reports noncompliance with Lasix. Echocardiogram ordered Continue Lasix 40 mg IV every 8hrs. Cardiology input appreciated. Monitor strict input and output Low-sodium diet recommended. Atrial fibrillation Cardiology input appreciated. Patient started on amiodarone loading dose and Eliquis. Continue telemetry Diabetes type 2: Sliding scale insulin for glucose management. Hypertension Continue home antihypertensives. Hyperlipidemia Continue home dose statin. DVT Prophylaxis: On Eliquis. CODE STATUS: Full code.
[2023-04-23] MEDS: APIXABAN 5 MG TABLET PO SCH (20:39)
[2023-04-23] MEDS: POTASSIUM CL SA 10 MEQ TAB PO SCH (20:39)
[2023-04-23] MEDS: HYDRALAZINE HCL 25 MG TABLET PO SCH (20:39)
[2023-04-23] MEDS: ATORVASTATIN 40 MG TAB PO SCH (20:39)
[2023-04-23 21:21] LABS: Specific Gravity 1.013 (1.005-1.030); Urine Bacteria None Seen /HPF (<20); Urine Bilirubin NEGATIVE (Negative); Urine Blood 1+ (Negative); Urine Clarity Clear (Clear); Urine Color Light-Yellow (Yellow); Urine Crystals Unidentified Few /HPF (None Seen); Urine Glucose NEGATIVE (Negative); Urine Mucus Slight /HPF (None Seen); Urine Protein 1+ (Negative); Urine RBC <5 /HPF (None Seen); Urine Urobilinogen Normal (Normal); Urine pH 5.5 (5.0-7.0)
[2023-04-24] MEDS: FUROSEMIDE 40 MG/4 ML VIAL IV SCH ×3 (01:09→17:00)
[2023-04-24] MEDS: LEVOTHYROXINE SOD 0.05 MG TABLET PO SCH (06:00)
[2023-04-24] MEDS ORDERED: HOME MED 1 EA UNK (Levothyroxine Sodium [Levothyroxine Sodium] 50 MCG Capsule) PO SCH (06:00)
[2023-04-24] MEDS: INSULIN REGULAR (HUMAN) 100 UNIT/ML SQ SCH ×4 (07:30→21:57)
[2023-04-24] MEDS ORDERED: HOME MED 1 EA UNK (Valsartan [Diovan] 320 MG Tablet) PO SCH (09:00)
[2023-04-24] MEDS: CLOPIDOGREL 75 MG TABLET PO SCH (09:02)
[2023-04-24] MEDS: POTASSIUM CL SA 10 MEQ TAB PO SCH ×2 (09:03→21:57)
[2023-04-24] MEDS: APIXABAN 5 MG TABLET PO SCH ×2 (09:03→21:57)
[2023-04-24] MEDS: VALSARTAN 160 MG TAB PO SCH (09:03)
[2023-04-24] MEDS: ASPIRIN EC 81 MG TAB PO SCH (09:04)
[2023-04-24] MEDS: HYDRALAZINE HCL 25 MG TABLET PO SCH ×2 (09:05→21:57)
[2023-04-24] MEDS ORDERED: ALBUTEROL 2.5 MG/3 ML NEB SOL NEB ONE (09:30)
[2023-04-24] MEDS ORDERED: IPRATROPIUM BROM 0.5MG/2.5ML NEB ONE (09:30)
[2023-04-24 13:42] LABS: Absolute Lymphocytes (CBC) 0.2 K/uL (0.7-4.9); Hematocrit 32.7 % (39.6-49.0); Lymphocytes % 2.3 % (15.3-44.8); MCV 65.7 fL (80-100); MPV 8.5 fL (7.6-11.3); Platelets 294 thou/uL (152-406); RBC Red Blood Cell Count 4.98 M/uL (4.33-5.43)
[2023-04-24 13:44] LABS: Anisocytosis 1+; Blood Morphology Comment NOTED (NOT SEEN); Hypochromasia 2+; Platelet Estimate ADEQ; White Blood Cell Scan OK (OK)
[2023-04-24] MEDS: IPRATROPIUM BROM 0.5MG/2.5ML NEB SCH ×2 (13:45→20:33)
[2023-04-24] MEDS: ALBUTEROL 2.5 MG/3 ML NEB SOL NEB SCH ×2 (13:45→20:33)
[2023-04-24 13:53] LABS: Potassium 3.1 mEq/L (3.5-5.1)
[2023-04-24] MEDS ORDERED: AMIODARONE HCL 900 MG in Dextrose 5%-Water 482 ML IV SCH (14:00)
--- NOTE | 2023-04-24 15:40 | P.PN ---
Subjective Date of Service: 04/24/23 Chief Complaint: CHF exacerbation Patient complaining of nonproductive cough. Family states that he coughed all night. Patient noted to be audibly wheezing this morning. Bilateral lower extremity swelling has improved compared to yesterday. He remain in atrial fibrillation. Physical Examination - Vital Signs Temperature: 99 F Blood Pressure: 116/55 Pulse: 110 Respirations: 19 Pulse Ox (%): 92 Assessment And Plan - Plan Physical Exam General: Alert, Oriented x3 HEENT: Atraumatic Neck: Supple, no elevated JVD Respiratory: Normal air movement. Clear to auscultation bilaterally Cardiovascular: Irregular rhythm, Normal S1 S2 Gastrointestinal: Soft and benign Musculoskeletal: Bilateral lower extremities with Neurological: Normal speech, no focal motor deficit. Assessment and plan Acute on chronic systolic heart failure Patient son reports noncompliance with Lasix. Echocardiogram is pending Continue Lasix 40 mg IV every 8hrs. Cardiology Dr. Castaneda is following. Monitor strict input and output Low-sodium diet recommended. Atrial fibrillation Patient started on amiodarone loading dose and Eliquis. Currently on amiodarone drip and still in A-fib. Cardiology Dr. Castaneda to follow Continue telemetry Diabetes type 2: Sliding scale insulin for glucose management. Hypertension Continue home antihypertensives. Hyperlipidemia Continue home dose statin. Acute bronchitis Patient with upper respiratory symptoms. Bronchodilators as needed. Oral prednisone. DVT Prophylaxis: On Eliquis. CODE STATUS: Full code.
[2023-04-24] MEDS ORDERED: POTASSIUM 25 MEQ EFFERV TAB PO ONE (16:24)
[2023-04-24] MEDS: predniSONE 20 MG TAB PO SCH (16:59)
[2023-04-24] MEDS: AMIODARONE HCL 200 MG TAB PO SCH (21:57)
[2023-04-24] MEDS: ATORVASTATIN 40 MG TAB PO SCH (21:57)
[2023-04-25] MEDS: FUROSEMIDE 40 MG/4 ML VIAL IV SCH ×3 (01:11→18:22)
[2023-04-25] MEDS: IPRATROPIUM BROM 0.5MG/2.5ML NEB SCH ×4 (01:59→19:56)
[2023-04-25] MEDS: ALBUTEROL 2.5 MG/3 ML NEB SOL NEB SCH ×4 (01:59→19:56)
[2023-04-25 03:26] LABS: Potassium 3.6 mEq/L (3.5-5.1)
[2023-04-25 03:31] LABS: Absolute Lymphocytes (CBC) 0.2 K/uL (0.7-4.9); Hematocrit 31.5 % (39.6-49.0); Lymphocytes % 2.1 % (15.3-44.8); MPV 8.8 fL (7.6-11.3); Platelets 287 thou/uL (152-406); RBC Red Blood Cell Count 4.81 M/uL (4.33-5.43)
[2023-04-25 03:35] LABS: MCV 65.4 fL (80-100)
[2023-04-25] MEDS: LEVOTHYROXINE SOD 0.05 MG TABLET PO SCH (06:00)
--- NOTE | 2023-04-25 06:03 | ECHO ---
HEIGHT: 5 ft 6 in WEIGHT: 189 lb 0 oz DATE OF STUDY: 04/24/[address]: Fito Christine MD 2-DIMENSIONAL: YES M.MODE: YES DOPPLER: YES COLOR FLOW: YES TDS: YES PORTABLE: YES DEFINITY: BUBBLE STUDY: DIAGNOSIS: CONGESTIVE HEART FAILURE CARDIAC HISTORY: CATHERIZATION: SURGERY: PROSTHETIC VALVE: PACEMAKER: MEASUREMENTS (cm) DIASTOLIC (NORMALS) SYSTOLIC (NORMALS) IVSd 1.0 (0.6-1.2) LA Diam 4.0 (1.9-4.0) LVEF 30-35% LVIDd 4.6 (3.5-5.7) LVIDs 4.1 (2.0-3.5) %FS 10% LVPWd 1.1 (0.6-1.2) Ao Diam 3.2 (2.0-3.7) 2 DIMENSIONAL ASSESSMENT: RIGHT ATRIUM: NORMAL LEFT ATRIUM: ENLARGED RIGHT VENTRICLE: NORMAL LEFT VENTRICLE: DEPRESSED EJECTION FRACTION TRICUSPID VALVE: MITRAL VALVE: MILD MITRAL REGURGITATION PULMONIC VALVE: NORMAL AORTIC VALVE: MODERATE AORTIC INSUFFICIENCY PERICARDIAL EFFUSION: NONE AORTIC ROOT: NORMAL LEFT VENTRICULAR WALL MOTION: MODERATE GLOBAL HYPOKINESIS DOPPLER/COLOR FLOW: SEE BELOW COMMENTS: 1. 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 MODERATE GLOBAL HYPOKINESIS 3. MODERATE AORTIC INSUFFICIENCY AND CALCIFIED AORTIC VALVE WITH POSSIBLE AORTIC STENOSIS TECHNOLOGIST: WILI BINGHAM
[2023-04-25] MEDS: INSULIN REGULAR (HUMAN) 100 UNIT/ML SQ SCH ×4 (07:30→20:58)
[2023-04-25] MEDS: predniSONE 20 MG TAB PO SCH (10:50)
[2023-04-25] MEDS: POTASSIUM CL SA 10 MEQ TAB PO SCH ×2 (10:50→20:58)
[2023-04-25] MEDS: HYDRALAZINE HCL 25 MG TABLET PO SCH ×2 (10:50→20:58)
[2023-04-25] MEDS: ASPIRIN EC 81 MG TAB PO SCH (10:50)
[2023-04-25] MEDS: VALSARTAN 160 MG TAB PO SCH (10:51)
[2023-04-25] MEDS: AMIODARONE HCL 200 MG TAB PO SCH ×2 (10:51→20:58)
[2023-04-25] MEDS: CLOPIDOGREL 75 MG TABLET PO SCH (10:51)
[2023-04-25] MEDS: APIXABAN 5 MG TABLET PO SCH ×2 (10:52→20:57)
--- NOTE | 2023-04-25 15:24 | EKG ---
Test Date: 2023-04-23 Test Time: 00:19:07 Actuarial Associate: JANENE MEASUREMENT RESULTS: Intervals: Rate: 87 CT: QRSD: 140 QT: 440 QTc: 529 [place]: P: CT: QRS: 9 T: 111 INTERPRETIVE STATEMENTS: Atrial fibrillation Nonspecific intraventricular block Abnormal QRS-T angle, consider primary T wave abnormality Abnormal ECG Compared to ECG 06/02/2021 16:27:12 T-wave abnormality now present Sinus bradycardia no longer present Left bundle-branch block no longer present Electronically Signed On 04-25-23 15:14:42 VISION CARE ASSOCIATE by Per Castaneda
--- NOTE | 2023-04-25 15:27 | EKG ---
Test Date: 2023-04-22 Test Time: 15:58:47 Parimutuel Ticket Seller: Vikram EVANS MEASUREMENT RESULTS: Intervals: Rate: 102 MI: 304 QRSD: 138 QT: 338 QTc: 440 [place]: P: MI: 304 QRS: 143 T: 34 INTERPRETIVE STATEMENTS: Sinus tachycardia with 1st degree AV block Nonspecific intraventricular block Abnormal ECG Compared to ECG 06/02/2021 16:27:12 First degree AV block now present Sinus bradycardia no longer present Left bundle-branch block no longer present Electronically Signed On 04-25-23 15:15:42 GARNETT MACHINE OPERATOR by Per Castaneda
--- NOTE | 2023-04-25 15:47 | P.PN ---
Subjective Date of Service: 04/25/23 Chief Complaint: CHF exacerbation Patient states he feels much better today. He states his coughing has improved. Lower extremity edema also improved. He remain in atrial fibrillation. Physical Examination - Vital Signs Temperature: 98.3 F Blood Pressure: 107/59 Pulse: 56 Respirations: 18 Pulse Ox (%): 94 Assessment And Plan - Plan Physical Exam General: Alert, Oriented x3 HEENT: Atraumatic Neck: Supple, no elevated JVD Respiratory: Normal air movement. Clear to auscultation bilaterally Cardiovascular: Irregular rhythm, Normal S1 S2 Gastrointestinal: Soft and benign Musculoskeletal: Bilateral lower extremities with Neurological: Normal speech, no focal motor deficit. Assessment and plan Acute on chronic systolic heart failure Patient son reports noncompliance with Lasix. Echocardiogram shows EF 30-35% Continue Lasix 40 mg IV every 8hrs. Cardiology Dr. Castaneda is following. Monitor strict input and output Low-sodium diet recommended. Keep lower extremities elevated. Atrial fibrillation Patient started on amiodarone loading dose and Eliquis. Amiodarone drip transitioned to oral amiodarone. Patient is still in A-fib Cardiology Dr. Castaneda to follow for further management. Continue telemetry Diabetes type 2: Sliding scale insulin for glucose management. Hypertension Continue home antihypertensives. Hyperlipidemia Continue home dose statin. Acute bronchitis Patient with upper respiratory symptoms. Bronchodilators as needed. Oral prednisone. Activity as tolerated. DVT Prophylaxis: On Eliquis. CODE STATUS: Full code.
[2023-04-25] MEDS: ATORVASTATIN 40 MG TAB PO SCH (20:57)
[2023-04-26] MEDS: FUROSEMIDE 40 MG/4 ML VIAL IV SCH ×3 (01:31→17:00)
[2023-04-26] MEDS: ALBUTEROL 2.5 MG/3 ML NEB SOL NEB SCH ×4 (01:46→19:52)
[2023-04-26] MEDS: IPRATROPIUM BROM 0.5MG/2.5ML NEB SCH ×4 (01:46→19:52)
[2023-04-26] MEDS: MELATONIN 5 MG TABLET PO SCH ×2 (02:03→21:29)
[2023-04-26] MEDS: BENZONATATE 100 MG CAP PO PRN ×3 (02:04→21:36)
[2023-04-26] MEDS: LEVOTHYROXINE SOD 0.05 MG TABLET PO SCH (06:00)
[2023-04-26 06:54] LABS: Potassium 3.3 mEq/L (3.5-5.1)
[2023-04-26] MEDS ORDERED: POTASSIUM CL SA 10 MEQ TAB PO ONE (07:22)
[2023-04-26] MEDS: VALSARTAN 160 MG TAB PO SCH (10:27)
[2023-04-26] MEDS: POTASSIUM CL SA 10 MEQ TAB PO SCH ×2 (10:28→21:29)
[2023-04-26] MEDS: carvediloL 12.5 MG TAB PO SCH ×2 (10:28→17:48)
[2023-04-26] MEDS: APIXABAN 5 MG TABLET PO SCH ×2 (10:28→21:29)
[2023-04-26] MEDS: HYDRALAZINE HCL 25 MG TABLET PO SCH ×2 (10:28→21:00)
[2023-04-26] MEDS: predniSONE 20 MG TAB PO SCH (10:29)
[2023-04-26] MEDS: INSULIN REGULAR (HUMAN) 100 UNIT/ML SQ SCH ×4 (10:29→21:30)
[2023-04-26] MEDS: CLOPIDOGREL 75 MG TABLET PO SCH (10:29)
[2023-04-26] MEDS: AMIODARONE HCL 200 MG TAB PO SCH ×2 (10:29→21:29)
[2023-04-26] MEDS: ASPIRIN EC 81 MG TAB PO SCH (10:29)
--- NOTE | 2023-04-26 14:30 | P.PN ---
Subjective Date of Service: 04/26/23 Chief Complaint: CHF exacerbation Patient states his cough is much better today. He remain in atrial fibrillation. Heart rate up to 117 at rest. Physical Examination - Vital Signs Temperature: 97.8 F Blood Pressure: 126/51 Pulse: 117 Respirations: 18 Pulse Ox (%): 98 Assessment And Plan - Plan Physical Exam General: Alert, Oriented x3 Neck: Supple, no elevated JVD Respiratory: Normal air movement. Clear to auscultation bilaterally Cardiovascular: Irregular rhythm, Normal S1 S2 Gastrointestinal: Soft and benign Musculoskeletal: Bilateral lower extremities edema Neurological: Normal speech, no focal motor deficit. Assessment and plan Acute on chronic systolic heart failure Noncompliance with Lasix. Echocardiogram shows EF 30-35% Continue Lasix 40 mg IV every 8hrs. Fluid restriction to 1500/day Cardiology Dr. Castaneda is following. Monitor strict input and output Low-sodium diet recommended. Keep lower extremities elevated. Atrial fibrillation Status post amiodarone drip loading dose. Amiodarone drip transitioned to oral amiodarone. Patient is still in A-fib Continue Eliquis. Cardiology Dr. Castaneda to follow for further management. Continue telemetry Diabetes type 2: Sliding scale insulin for glucose management. Hypertension Continue home antihypertensives. Hyperlipidemia Continue home dose statin. Acute bronchitis Symptoms improved Bronchodilators as needed. Oral prednisone. Activity as tolerated. DVT Prophylaxis: On Eliquis. CODE STATUS: Full code.
[2023-04-26] MEDS: ATORVASTATIN 40 MG TAB PO SCH (21:29)
[2023-04-27] MEDS ORDERED: ALBUMIN HUMAN 25% 100 ML IV ONE (00:14)
[2023-04-27] MEDS: FUROSEMIDE 40 MG/4 ML VIAL IV SCH ×2 (00:39→09:13)
[2023-04-27] MEDS: IPRATROPIUM BROM 0.5MG/2.5ML NEB SCH ×4 (00:54→18:14)
[2023-04-27] MEDS: ALBUTEROL 2.5 MG/3 ML NEB SOL NEB SCH ×3 (00:55→14:10)
[2023-04-27 03:55] LABS: Absolute Lymphocytes (CBC) 0.4 K/uL (0.7-4.9); Hematocrit 27.3 % (39.6-49.0); Lymphocytes % 7.1 % (15.3-44.8); MCV 64.7 fL (80-100); MPV 8.6 fL (7.6-11.3); Platelets 248 thou/uL (152-406); RBC Red Blood Cell Count 4.21 M/uL (4.33-5.43)
[2023-04-27 05:28] LABS: Anisocytosis 1+; Blood Morphology Comment NOTED (NOT SEEN); Hypochromasia 1+; Ovalocytes 1+; Platelet Estimate ADEQ; Poikilocytosis 1+; Polychromasia 1+; White Blood Cell Scan OK (OK)
[2023-04-27] MEDS: carvediloL 12.5 MG TAB PO SCH (06:00)
[2023-04-27] MEDS: BENZONATATE 100 MG CAP PO PRN ×3 (06:16→21:53)
[2023-04-27] MEDS: LEVOTHYROXINE SOD 0.05 MG TABLET PO SCH (06:16)
[2023-04-27] MEDS: INSULIN REGULAR (HUMAN) 100 UNIT/ML SQ SCH ×4 (07:30→21:00)
[2023-04-27] MEDS: HYDRALAZINE HCL 25 MG TABLET PO SCH (09:00)
[2023-04-27] MEDS: ASPIRIN EC 81 MG TAB PO SCH (09:17)
[2023-04-27] MEDS: VALSARTAN 160 MG TAB PO SCH (09:17)
[2023-04-27] MEDS: POTASSIUM CL SA 10 MEQ TAB PO SCH ×2 (09:17→21:54)
[2023-04-27] MEDS: CLOPIDOGREL 75 MG TABLET PO SCH (09:18)
[2023-04-27] MEDS: predniSONE 20 MG TAB PO SCH (09:18)
[2023-04-27] MEDS: AMIODARONE HCL 200 MG TAB PO SCH ×2 (09:18→21:54)
[2023-04-27] MEDS: APIXABAN 5 MG TABLET PO SCH ×2 (09:18→21:54)
[2023-04-27] MEDS: GUAIFENESIN/DM 5 ML UCUP PO PRN ×2 (10:31→17:22)
--- NOTE | 2023-04-27 12:33 | RAD REPORT ---
EXAM DESCRIPTION: RAD - Chest Single View - 04/27/2023 12:22 pm CLINICAL HISTORY: cont cough, pul edema Chest pain. COMPARISON: <Comparisons> FINDINGS: Portable technique limits examination quality. Mild interstitial pulmonary edema seen. The heart is mildly enlarged in size. No displaced fractures. IMPRESSION: Mild CHF.
[2023-04-27] MEDS: CEFUROXIME 250 MG TAB PO SCH ×2 (13:00→21:52)
[2023-04-27] MEDS: dexAMETHasone 10 MG/ML VIAL IV SCH ×2 (13:01→21:57)
[2023-04-27] MEDS ORDERED: ALBUTEROL 2.5 MG/3 ML NEB SOL NEB PRN ×2 (14:55→17:00)
--- NOTE | 2023-04-27 15:15 | P.PN ---
Subjective Date of Service: 04/27/23 Chief Complaint: CHF exacerbation Patient has been coughing all night. He remain in atrial fibrillation but heart rate has improved. Soft BP readings. Creatinine level trended up. Physical Examination - Vital Signs Temperature: 97.2 F Blood Pressure: 104/52 Pulse: 81 Respirations: 20 Pulse Ox (%): 96 Assessment And Plan - Plan Physical Exam General: Alert, Oriented x3 Neck: Supple, no elevated JVD Respiratory: Normal air movement. Mild bilateral crackles. Cardiovascular: Irregular rhythm, Normal S1 S2 Gastrointestinal: Soft and benign, no ascites, no tenderness Musculoskeletal: Bilateral lower extremities edema Neurological: Normal speech, no focal motor deficit. Assessment and plan Acute on chronic systolic heart failure Noncompliance with Lasix. Echocardiogram shows EF 30-35% Hold Lasix given rise in creatinine and hyponatremia. Fluid restriction to 1500/day Cardiology Dr. Castaneda is following. Monitor strict input and output Low-sodium diet recommended. Keep lower extremities elevated. Atrial fibrillation Status post amiodarone drip loading dose. Amiodarone drip transitioned to oral amiodarone. Patient is still in A-fib but currently rate controlled. Patient was also getting Coreg but now his soft BP is limiting Coreg use. Holding Coreg. Continue Eliquis. Cardiology Dr. Castaneda to follow for further management. Continue telemetry Diabetes type 2: Sliding scale insulin for glucose management. Hypertension Hold antihypertensives due to soft blood pressure. MACKENZIE/hyponatremia Hold Lasix Nephrology consult. Hyperlipidemia Continue home dose statin. Acute bronchitis Patient with worsening cough. Chest x-ray shows mild CHF. Bronchodilators, antitussives. IV dexamethasone. Activity as tolerated. DVT Prophylaxis: On Eliquis. CODE STATUS: Full code.
[2023-04-27] MEDS: ATORVASTATIN 40 MG TAB PO SCH (21:54)
[2023-04-27] MEDS: MELATONIN 5 MG TABLET PO SCH (23:27)
[2023-04-28] MEDS: IPRATROPIUM BROM 0.5MG/2.5ML NEB SCH ×4 (01:45→20:02)
[2023-04-28] MEDS: GUAIFENESIN/DM 5 ML UCUP PO PRN ×4 (02:02→17:05)
[2023-04-28] MEDS ORDERED: HYDROCODONE/CHLORPHEN 5 ML/OSYR PO ONE (02:54)
[2023-04-28 03:30] LABS: Absolute Lymphocytes (CBC) 0.2 K/uL (0.7-4.9); Hematocrit 29.3 % (39.6-49.0); Lymphocytes % 4.6 % (15.3-44.8); MPV 8.1 fL (7.6-11.3); Platelets 344 thou/uL (152-406); RBC Red Blood Cell Count 4.51 M/uL (4.33-5.43)
[2023-04-28 03:44] LABS: Potassium 4.4 mEq/L (3.5-5.1)
[2023-04-28] MEDS: LEVOTHYROXINE SOD 0.05 MG TABLET PO SCH (06:08)
--- NOTE | 2023-04-28 08:10 | P.CNS ---
Date of Consult: 04/28/23 Reason for Consult: MACKENZIE/ Hyponatremia Requesting Physician: edelmira hughes Chief Complaint: CHF exacerbation History of Present Illness: 83-year-old male patient medical history significant for hypertension, hyperlipidemia, diabetes type 2, history of CHF admitted for management of CHF exacerbation. He has been having issues with cough and shortness of breath on lying down and had issues with orthopnea and PND symptoms. he wakes up feeling short of breath. He also reported significant swelling of the lower extremity and was evaluated emergency room by family members. Initial workup was concerning for suspicion for possible pneumonia however on physical exam she was found to have significant lower extremity edema up to the knees depicting worsening CHF symptoms. He was asked to be admitted for inpatient care. He denies chest pain, fever, chills, productive cough. [id number] 15:45 This 83 yrs old Male presents to ER via Ambulatory with complaints of Cough. ms3 15:45 83-year-old male with past medical history of congestive heart failure, CVA, ms3 hyperlipidemia, hypertension presents to the emergency department for cough that has been ongoing for 2 weeks and becoming worse. Patient denies shortness of breath, fevers, chills. Patient states the cough is productive of white phlegm. Patient endorses foot swelling. Patient denies pain. He denies NSAIDs. He denies difficulty emptying his bladder. The son report urge incontinence due to the diuretics. Allergies No Known Allergies Allergy (Verified 03/04/20 14:50) Home medications list reviewed: Yes Home Medications: Aspirin [Aspirin EC 81 MG] 81 mg PO DAILY 06/24/17 Atorvastatin Calcium [Lipitor] 40 mg PO BEDTIME 06/24/17 Clopidogrel Bisulfate [Plavix] 75 mg PO DAILY 06/24/17 Metoprolol Succinate [Toprol Xl] 200 mg PO DAILY 06/24/17 Levothyroxine Sodium 50 mcg PO [id number] 05/01/21 Metformin HCl [Metformin HCl ER] 750 mg PO BIDWM 05/01/21 Valsartan [Diovan] 320 mg PO DAILY 05/01/21 Furosemide [Lasix] 40 mg PO BIDL #60 tab 05/02/21 Hydralazine [Apresoline*] 25 mg PO BID #60 tab 05/02/21 Potassium Chloride 10 meq PO BID 04/22/23 - Past Medical/Surgical History Diabetic: No -: HTN -: Hyperlipidemia -: Stroke (Dec 2016) -: DM II -: CKD II with Proteinuria (Dr. Rizzo/ Dr. Reyez) -: Systolic CHF -: Anemia/ Iron Deficiency -: Carotid endarterectomy -: Coronary artery disease with stents - Social History Alcohol use: No CD- Drugs: No Caffeine use: Yes Place of Residence: Home Review of Systems 10-point ROS is otherwise unremarkable Respiratory: Cough Cardiovascular: Edema Physical Examination Temp Pulse Resp BP Pulse Ox 97.1 F 89 16 119/66 96 04/28/23 04:00 04/28/23 04:00 04/28/23 04:00 04/28/23 04:00 04/28/23 04:00 General: Oriented x3, Cooperative HEENT: Atraumatic Neck: Supple Respiratory: Diminished Cardiovascular: Regular rate/rhythm, Edema Gastrointestinal: Soft and benign, Non-distended Musculoskeletal: No clubbing, No contractures Integumentary: No rashes, No cyanosis Neurological: Normal speech Blood work reviewed in the chart. Imagings Data: [id number] EXAM DESCRIPTION: RAD - Chest Single View - 04/27/2023 12:22 pm CLINICAL HISTORY: cont cough, pul edema Chest pain. COMPARISON: <Comparisons> FINDINGS: Portable technique limits examination quality. Mild interstitial pulmonary edema seen. The heart is mildly enlarged in size. No displaced fractures. IMPRESSION: Mild CHF. [id number] LEFT VENTRICULAR WALL MOTION: MODERATE GLOBAL HYPOKINESIS DOPPLER/COLOR FLOW: SEE BELOW COMMENTS: 1. 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 MODERATE GLOBAL HYPOKINESIS 3. MODERATE AORTIC INSUFFICIENCY AND CALCIFIED AORTIC VALVE WITH POSSIBLE AORTIC STENOSIS Conclusions/Impression: Stage I MACKENZIE in the setting of diuresis CKD II with Proteinuria -No NSAIDs -Agree with the reduced furosemide dose Hyponatremia -Continue furosemide Hypokalemia -Replete as ordered -Consider spironolactone Systolic CHF LVEF 30-35%, A/C LE Edema -Continue furosemide DM II with CKD -RISS Anemia in chronic illness Iron deficiency 4.7% -Monitor H&H -Start IV iron Thank you kindly for the consultation Case reviewed with Dr. Hughes
[2023-04-28 09:17] VITALS: BMI 30.7
[2023-04-28] MEDS: CLOPIDOGREL 75 MG TABLET PO SCH (09:17)
[2023-04-28] MEDS: AMIODARONE HCL 200 MG TAB PO SCH ×2 (09:17→21:15)
[2023-04-28] MEDS: POTASSIUM CL SA 10 MEQ TAB PO SCH ×2 (09:17→21:15)
[2023-04-28] MEDS: BENZONATATE 100 MG CAP PO PRN ×2 (09:17→17:05)
[2023-04-28] MEDS: CEFUROXIME 250 MG TAB PO SCH ×2 (09:17→21:15)
[2023-04-28] MEDS: predniSONE 20 MG TAB PO SCH (09:17)
[2023-04-28] MEDS: ASPIRIN EC 81 MG TAB PO SCH (09:17)
[2023-04-28] MEDS: APIXABAN 5 MG TABLET PO SCH ×2 (09:17→21:16)
[2023-04-28] MEDS: INSULIN REGULAR (HUMAN) 100 UNIT/ML SQ SCH ×4 (09:18→21:38)
[2023-04-28] MEDS: dexAMETHasone 10 MG/ML VIAL IV SCH ×2 (09:18→21:16)
[2023-04-28 09:39] LABS: Ferritin 62.6 ng/mL (26-388)
[2023-04-28] MEDS: FUROSEMIDE 40 MG TABLET PO SCH ×2 (12:36→17:00)
[2023-04-28] MEDS: carvediloL 6.25 MG TAB PO SCH ×2 (12:38→21:15)
[2023-04-28] MEDS: SOD FERRIC GLUC COMPLX/SUCROSE 250 MG in NA CHLORIDE 0.9% 250 ML IV SCH (14:16)
--- NOTE | 2023-04-28 15:05 | P.PN ---
Subjective Date of Service: 04/28/23 Chief Complaint: CHF exacerbation Family report patient was coughing all night. Patient states he feels much better. He remain in atrial fibrillation but heart rate has improved. BP readings have improved. Physical Examination - Vital Signs Temperature: 97.0 F Blood Pressure: 121/86 Pulse: 84 Respirations: 22 Pulse Ox (%): 96 Assessment And Plan - Plan Physical Exam General: Alert, Oriented x3 Neck: Supple, no elevated JVD Respiratory: Normal air movement. Mild bilateral crackles. Cardiovascular: Irregular rhythm, Normal S1 S2 Gastrointestinal: Soft and benign, no ascites, no tenderness Musculoskeletal: Bilateral lower extremities edema Neurological: Normal speech, no focal motor deficit. Assessment and plan Acute on chronic systolic heart failure Noncompliance with Lasix. Echocardiogram shows EF 30-35% Serum creatinine stabilized IV Lasix transition to oral Lasix. Fluid restriction to 1500/day Cardiology Dr. Castaneda is following. Monitor strict input and output Keep lower extremities elevated. Atrial fibrillation Status post amiodarone drip loading dose. Amiodarone drip transitioned to oral amiodarone. Patient is still in A-fib but currently rate controlled. Resumed Coreg 6.25 mg twice a day. Continue Eliquis. Cardiology Dr. Castaneda to follow for further management. Continue telemetry Diabetes type 2: Sliding scale insulin for glucose management. Hypertension Hold antihypertensives due to soft blood pressure. MACKENZIE/hyponatremia Serum creatinine is stable. IV Lasix transitioned to oral Lasix. Nephrology consult. Hyperlipidemia Continue home dose statin. Acute bronchitis Patient with persistent cough. Chest x-ray shows mild CHF. Bronchodilators, antitussives. IV dexamethasone. Activity as tolerated. DVT Prophylaxis: On Eliquis. CODE STATUS: Full code.
[2023-04-28] MEDS ORDERED: FUROSEMIDE 40 MG TABLET PO SCH (17:00)
[2023-04-28] MEDS: MELATONIN 5 MG TABLET PO SCH (21:00)
[2023-04-28] MEDS: ATORVASTATIN 40 MG TAB PO SCH (21:15)
[2023-04-29] MEDS: IPRATROPIUM BROM 0.5MG/2.5ML NEB SCH ×4 (02:20→19:52)
[2023-04-29 03:03] LABS: Absolute Lymphocytes (CBC) 0.2 K/uL (0.7-4.9); Hematocrit 29.3 % (39.6-49.0); Lymphocytes % 2.6 % (15.3-44.8); MCV 64.6 fL (80-100); MPV 8.7 fL (7.6-11.3); Platelets 253 thou/uL (152-406); RBC Red Blood Cell Count 4.54 M/uL (4.33-5.43)
[2023-04-29 03:23] LABS: Potassium 4.4 mEq/L (3.5-5.1)
[2023-04-29 04:30] LABS: Anisocytosis 2+; Blood Morphology Comment NOTED (NOT SEEN); Hypochromasia 1+; Platelet Estimate ADEQ
[2023-04-29] MEDS: LEVOTHYROXINE SOD 0.05 MG TABLET PO SCH (05:25)
[2023-04-29] MEDS: GUAIFENESIN/DM 5 ML UCUP PO PRN (06:00)
[2023-04-29] MEDS: INSULIN REGULAR (HUMAN) 100 UNIT/ML SQ SCH ×4 (07:30→21:59)
[2023-04-29] MEDS: ASPIRIN EC 81 MG TAB PO SCH (08:32)
[2023-04-29] MEDS: POTASSIUM CL SA 10 MEQ TAB PO SCH (08:32)
[2023-04-29] MEDS: APIXABAN 5 MG TABLET PO SCH ×2 (08:33→20:48)
[2023-04-29] MEDS: CLOPIDOGREL 75 MG TABLET PO SCH (08:33)
[2023-04-29] MEDS: AMIODARONE HCL 200 MG TAB PO SCH ×2 (08:33→20:47)
[2023-04-29] MEDS: predniSONE 20 MG TAB PO SCH (08:55)
[2023-04-29] MEDS: carvediloL 6.25 MG TAB PO SCH ×2 (08:55→20:47)
[2023-04-29] MEDS: dexAMETHasone 10 MG/ML VIAL IV SCH (08:56)
[2023-04-29] MEDS: SOD FERRIC GLUC COMPLX/SUCROSE 250 MG in NA CHLORIDE 0.9% 250 ML IV SCH (08:58)
[2023-04-29] MEDS: CEFUROXIME 250 MG TAB PO SCH ×2 (11:41→20:48)
[2023-04-29] MEDS: SPIRONOLACTONE 25 MG TABLET PO SCH (13:04)
--- NOTE | 2023-04-29 15:49 | P.PN ---
Subjective Date of Service: 04/29/23 Chief Complaint: CHF exacerbation Patient reports intermittent but stated severity of cough has decreased. Patient states he feels much better. He remain in atrial fibrillation but heart rate is controlled. Patient was scheduled for DULCE MARIA. He was made n.p.o. but he ate this morning. Physical Examination - Vital Signs Temperature: 97.6 F Blood Pressure: 117/66 Pulse: 78 Respirations: 20 Pulse Ox (%): 96 Assessment And Plan - Plan Physical Exam General: Alert, Oriented x3 Neck: Supple, no elevated JVD Respiratory: Normal air movement. Mild bilateral crackles. Mild scattered rhonchi. Cardiovascular: Irregular rhythm, Normal S1 S2 Gastrointestinal: Soft and benign, no ascites, no tenderness Musculoskeletal: Bilateral lower extremities edema Neurological: Normal speech, no focal motor deficit. Assessment and plan Acute on chronic systolic heart failure Noncompliance with Lasix. Echocardiogram shows EF 30-35% Serum creatinine stabilized IV Lasix transition to oral Lasix. Fluid restriction to 1500/day Cardiology Dr. Castaneda is following. Patient was planned for DULCE MARIA but he ate this morning. DULCE MARIA and possible cardioversion to be rescheduled. Monitor strict input and output Keep lower extremities elevated. Atrial fibrillation Status post amiodarone drip loading dose. Amiodarone drip transitioned to oral amiodarone. Patient is still in A-fib but currently rate controlled with amiodarone and Coreg. Continue Eliquis. Continue telemetry Diabetes type 2: Sliding scale insulin for glucose management. Hypertension Holding other antihypertensives due to soft blood pressure. MACKENZIE/hyponatremia MACKENZIE resolved IV Lasix transitioned to oral Lasix. Continue oral Lasix Nephrology input appreciated. Hyperlipidemia Continue home dose statin. Acute bronchitis Patient with persistent cough. Chest x-ray shows mild CHF. Continue bronchodilators, antitussives. Transition IV dexamethasone to oral prednisone. Activity as tolerated. Pulmonary consult. DVT Prophylaxis: On Eliquis. CODE STATUS: Full code.
[2023-04-29] MEDS: ATORVASTATIN 40 MG TAB PO SCH (20:48)
[2023-04-29] MEDS: BENZONATATE 100 MG CAP PO PRN (20:48)
[2023-04-29] MEDS: MELATONIN 5 MG TABLET PO SCH (20:48)
--- NOTE | 2023-04-29 23:30 | P.CNS ---
Date of Consult: 04/22/23 Mr. Brian Gunn is an 83 yo patient with at hx of HTN, HLD, CVA, Carotid endarterectomy, CAD with stents. He arrived to the ED with cough, SOB, PND, and orthopnea with atrial fibrillation. Allergies No Known Allergies Allergy (Verified 03/04/20 14:50) Home Medications: Aspirin [Aspirin EC 81 MG] 81 mg PO DAILY 06/24/17 Atorvastatin Calcium [Lipitor] 40 mg PO BEDTIME 06/24/17 Clopidogrel Bisulfate [Plavix] 75 mg PO DAILY 06/24/17 Metoprolol Succinate [Toprol Xl] 200 mg PO DAILY 06/24/17 Levothyroxine Sodium 50 mcg PO [id number] 05/01/21 Metformin HCl [Metformin HCl ER] 750 mg PO BIDWM 05/01/21 Valsartan [Diovan] 320 mg PO DAILY 05/01/21 Furosemide [Lasix] 40 mg PO BIDL #60 tab 05/02/21 Hydralazine [Apresoline*] 25 mg PO BID #60 tab 05/02/21 Potassium Chloride 10 meq PO BID 04/22/23 - Past Medical/Surgical History -: HTN -: Hyperlipidemia -: Stroke (Dec 2016) -: Carotid endarterectomy -: Coronary artery disease with stents Family history: reviewed, non contributory - Social History Alcohol use: No CD- Drugs: No Caffeine use: Yes Review of Systems General: Unremarkable Eyes: Unremarkable ENT: Unremarkable Respiratory: Cough, Shortness of Breath, SOB with Exertion, improved Cardiovascular: Orthopnea, Paroxysmal Noc. Dyspnea, improved Gastrointestinal: Unremarkable Genitourinary: Unremarkable Musculoskeletal: Unremarkable Integumentary: Unremarkable Neurological: Unremarkable Physical Examination - Physical Exam General: Alert, Oriented x3 HEENT: Atraumatic Neck: Supple Respiratory: Normal air movement, continued cough Cardiovascular: Regular rate/rhythm, Normal S1 S2 Gastrointestinal: Soft and benign Musculoskeletal: Swelling Neurological: Normal speech - Studies Laboratory Data (last 24 hrs) 04/22/23 04/22/23 15:55 15:55 WBC 10.10 Hgb 9.7 L Hct 32.8 L Plt Count 338 Sodium 135 L Potassium 3.7 BUN 19 H Creatinine 1.01 Glucose 133 H Magnesium 1.9 Total Bilirubin 0.7 AST 9 L ALT 29 Alkaline Phosphatase 77 Assessment and Plan - Plan CHF exacerbation with atrial fibrillation Patient had significant worsening symptoms with orthopnea, PND and SOB on exertion. He also has pedal edema. He has diuresed well and is feeling better. Will have a echocardiogram to evaluate patient's heart. Will continue Lasix 40 mg IV BID Monitor strict input and output Have him on low-sodium diet. Pt will have DULCE MARIA cardioversion tomorrow and may be discharged post procedure. He was to have procedure today but was fed a large breakfast and procedure will be delayed to 04/30/23. Diabetes type 2: After DULCE MARIA cardioversion he will continue sliding scale insulin for glucose control and carb restricted diet. Hypertension: Monitor vital signs per unit protocol and continue antihypertensive medication. Hyperlipidemia: We will continue statin therapy. CODE STATUS: Full code. Disposition: We will treat his CHF exacerbation and discharge him when he is deemed clinically stable. - Advance Directives Does patient have a Living Will: No Does patient have a Durable POA for Healthcare: No
[2023-04-30] MEDS: IPRATROPIUM BROM 0.5MG/2.5ML NEB SCH ×2 (00:59→07:51)
[2023-04-30 02:49] LABS: Absolute Lymphocytes (CBC) 0.2 K/uL (0.7-4.9); Hematocrit 29.7 % (39.6-49.0); Lymphocytes % 2.2 % (15.3-44.8); MPV 8.7 fL (7.6-11.3); Platelets 277 thou/uL (152-406); RBC Red Blood Cell Count 4.54 M/uL (4.33-5.43)
[2023-04-30 02:51] LABS: MCV 65.4 fL (80-100)
[2023-04-30 02:59] LABS: Potassium 4.3 mEq/L (3.5-5.1)
[2023-04-30] MEDS: LEVOTHYROXINE SOD 0.05 MG TABLET PO SCH (05:31)
[2023-04-30] MEDS: INSULIN REGULAR (HUMAN) 100 UNIT/ML SQ SCH ×2 (07:30→11:30)
[2023-04-30] MEDS: ASPIRIN EC 81 MG TAB PO SCH (08:48)
[2023-04-30] MEDS: APIXABAN 5 MG TABLET PO SCH (08:48)
[2023-04-30] MEDS: AMIODARONE HCL 200 MG TAB PO SCH (08:48)
[2023-04-30] MEDS: predniSONE 20 MG TAB PO SCH (08:48)
[2023-04-30] MEDS: SOD FERRIC GLUC COMPLX/SUCROSE 250 MG in NA CHLORIDE 0.9% 250 ML IV SCH (08:49)
[2023-04-30] MEDS: SPIRONOLACTONE 25 MG TABLET PO SCH (08:54)
[2023-04-30] MEDS: CEFUROXIME 250 MG TAB PO SCH (08:54)
[2023-04-30] MEDS: GUAIFENESIN/DM 5 ML UCUP PO PRN ×2 (08:56→18:10)
[2023-04-30] MEDS: CLOPIDOGREL 75 MG TABLET PO SCH (08:57)
[2023-04-30] MEDS ORDERED: SOD FERRIC GLUC COMPLX/SUCROSE 250 MG in NA CHLORIDE 0.9% 250 ML IV SCH (09:00)
[2023-04-30] MEDS: carvediloL 6.25 MG TAB PO SCH (09:01)
[2023-04-30] MEDS ORDERED: NA CHLORIDE 0.9% 500 ML ONE (11:22)
[2023-04-30] MEDS ORDERED: propofoL 200 MG/20 ML VIAL IV ONE (11:48)
[2023-04-30] MEDS ORDERED: LIDOCAINE 2% MPF 5 ML VIAL ONE (11:48)
--- NOTE | 2023-04-30 12:29 | P.CNS ---
Date of Consult: 04/30/23 Reason for Consult: Cough orthopnea CHF Chief Complaint: CHF exacerbation History of Present Illness: Patient is 83 years of age Georgian-speaking only with a history of metabolic syndrome history of congestive heart failure admitted with shortness of breath cough orthopnea reported also lower extremity edema. Echocardiogram shows abnormal left ventricular function denies any fever or chills at the bedside Allergies No Known Allergies Allergy (Verified 03/04/20 14:50) Home Medications: Aspirin [Aspirin EC 81 MG] 81 mg PO DAILY 06/24/17 Atorvastatin Calcium [Lipitor] 40 mg PO BEDTIME 06/24/17 Clopidogrel Bisulfate [Plavix] 75 mg PO DAILY 06/24/17 Metoprolol Succinate [Toprol Xl] 200 mg PO DAILY 06/24/17 Levothyroxine Sodium 50 mcg PO [id number] 05/01/21 Metformin HCl [Metformin HCl ER] 750 mg PO BIDWM 05/01/21 Valsartan [Diovan] 320 mg PO DAILY 05/01/21 Furosemide [Lasix] 40 mg PO BIDL #60 tab 05/02/21 Hydralazine [Apresoline*] 25 mg PO BID #60 tab 05/02/21 Potassium Chloride 10 meq PO BID 04/22/23 - Past Medical/Surgical History Diabetic: No -: HTN -: Hyperlipidemia -: Stroke (Dec 2016) -: DM II -: CKD II with Proteinuria (Dr. Rizzo/ Dr. Reyez) -: Systolic CHF -: Anemia/ Iron Deficiency -: Carotid endarterectomy -: Coronary artery disease with stents - Social History Alcohol use: No CD- Drugs: No Caffeine use: Yes Place of Residence: Home Review of Systems is unable to be obtained Physical Examination Temp Pulse Resp BP Pulse Ox 977 F H 62 18 136/73 94 04/30/23 08:00 04/30/23 09:01 04/30/23 08:00 04/30/23 09:01 04/30/23 08:00 General: Alert, Cooperative Respiratory: Clear to auscultation bilaterally, Diminished, Crackles/rales Cardiovascular: Normal S1 S2, Edema, Irregular heart rate/rhythm Gastrointestinal: Normal bowel sounds, Soft and benign, Non-distended - Problems (1) CHF (congestive heart failure) Current Visit: Yes Status: Acute Plan: Patient is 83 years of age admitted with worsening dyspnea orthopnea consistent with congestive heart failure he seems to be doing a little better chest x-ray is consistent with CHF may have underlying reactive airways disease from his underlying heart failure recommended trial of inhaled bronchodilators MODERATELY DEPRESSED LEFT VENTRICULAR EJECTION FRACTION 30-35% 2. MODERATE GLOBAL HYPOKINESIS 3. MODERATE AORTIC INSUFFICIENCY AND CALCIFIED AORTIC VALVE WITH POSSIBLE AORTIC STENOSIS DC antibiotics no evidence of infection patient's vital signs are stable oxygenation satisfactory Qualifiers: Heart failure type: systolic Heart failure chronicity: acute on chronic Qualified Code(s): I50.23 - Acute on chronic systolic (congestive) heart failure (2) Microcytic anemia Current Visit: Yes Status: Acute Plan: Patient has significant microcytic anemia he is developed progressive microcytosis and his is transferrin saturation is very low recommend iron transfusions evaluate for blood loss
[2023-04-30] MEDS ORDERED: IPRATROPIUM BROM 0.5MG/2.5ML NEB PRN (12:30)
[2023-04-30] MEDS ORDERED: DULERA 200/5 (MOMETASONE/FORMOTEROL) INHALER IH SCH (12:30)
[2023-04-30 12:35] VITALS: TEMP 97.6
[2023-04-30 12:56] VITALS: O2SAT 100
--- NOTE | 2023-04-30 13:02 | TEE ---
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 TRANSESOPHAGEAL ECHOCARDIOGRAM PROBE WAS INSERTED, NO DIFFICULTY 2. NO LEFT ATRIAL APPENDAGE THROMBUS IS SEEN 3. FOCUSED TRANSESOPHAGEAL ECHOCARDIOGRAM WAS DONE. TECHNOLOGIST: WILI BINGHAM
--- NOTE | 2023-04-30 13:14 | OP ---
Date of Procedure: 04/30/2023 Surgeon: PANCHITO POSADA Procedures Performed: 1.Transesophageal electrocardiogram. 2.Electrical cardioversion to normal sinus rhythm. Diagnosis: Atrial fibrillation. Description Of Procedure: After risks, benefits, alternatives were explained, patient agreed to proc edure and signed informed consent. Patient was brought into the OR room 3. After appropriate time-o ut, deep sedation was initiated by anesthesia and DULCE MARIA probe was inserted. No thrombus was found in t he left atrium. Then, synchronized 200 joule was delivered, failed to convert to sinus rhythm. Then , a subsequent synchronized 300 joule shock was delivered and successfully converted the rhythm into normal sinus rhythm. Conclusion: Successful DULCE MARIA-guided electrical cardioversion. SR/MODL Voice ID: [id number] Report ID: [id number]
--- NOTE | 2023-04-30 14:23 | P.PN ---
Date of Service: 04/30/23 Subjective: ROS: 10 point ROS as noted above, otherwise negative Physical Exam: GEN: Alert, oriented, NAD HEENT: Normal conjunctiva, sclera anicteric CV: Regular rate and Irregularly Irregular rhythm, no edema Pulm: Nonlabored respirations on room air, Mild bilateral crackles. Mild scattered rhonchi. ABD: Soft, nontender, nondistended Integumentary: No rashes Neuro: Normal speech, normal affect Problem List: Acute on chronic systolic CHF Atrial fibrillation, new onset Acute bronchitis Iron deficiency Anemia NIDDM2 Hypertension MACKENZIE, resolved Hyponatremia Hyperlipidemia Acute on chronic systolic CHF Atrial fibrillation, new onset Noncompliance with Lasix. Echocardiogram shows 30-35%EF, mod global hypokinesis, moderate aortic insufficiency and calcified aortic valve with possible aortic stenosis. IV Lasix transition to oral Lasix BID Fluid restriction to 1500/day Cardiology Dr. Castaneda is following. s/p amiodarone drip loading dose. Amiodarone drip transitioned to oral amiodarone. Patient is still in A-fib but currently rate controlled with amiodarone and Coreg. Patient was planned for DULCE MARIA yesterday but ate breakfast NPO for DULCE MARIA-guided cardioversion today Continue Eliquis. Monitor strict I/Os. Monitor on tele Keep lower extremities elevated. Acute bronchitis Patient with persistent cough. Chest x-ray shows mild CHF. Continue bronchodilators, antitussives. Transition IV dexamethasone to oral prednisone. Activity as tolerated. Pulmonary consult. Iron deficiency Anemia iron studies 04/28 consistent with iron deficiency anemia continue IV iron. Monitor H&H. NIDDM2 Sliding scale insulin Hypertension Holding antihypertensives due to soft blood pressure, restart as appropriate MACKENZIE, resolved hyponatremia nephrology consulted MACKENZIE resolved IV Lasix transitioned to oral Lasix. Continue oral Lasix Hyperlipidemia Continue home dose statin. VTE: eliquis Code: Full Dispo: Home, ~1 day Pending cardioversion, heart rate/rhythm remains stable
--- NOTE | 2023-04-30 15:59 | P.PN ---
Subjective Date of Service: 04/30/23 Chief Complaint: atrial fibrillation Subjective: No new changes, Other (ready for DULCE MARIA cardioversion) Review of Systems 10-point ROS is otherwise unremarkable Respiratory: Cough, Other (mild crackles) Cardiovascular: Palpitations, As per HPI Gastrointestinal: Other (Npo since MN for procedure) Genitourinary: Unremarkable Neurological: Unremarkable Lymphatics: Unremarkable Physical Examination - Vital Signs Temperature: 97.6 F Blood Pressure: 125/58 Pulse: 66 Respirations: 18 Pulse Ox (%): 95 - Physical Exam General: Alert, Cooperative, Other (sitting in chair) HEENT: Atraumatic, Normocephalic, PERRLA Neck: Supple, 2+ carotid pulse no bruit Respiratory: Crackles/rales, Other (cough) Cardiovascular: Irregular heart rate/rhythm Capillary refill: <2 Seconds Gastrointestinal: Normal bowel sounds, Soft and benign Musculoskeletal: No clubbing, No swelling Integumentary: No rashes Neurological: Normal speech, Normal tone External genitalia: Deferred Rectal: Deferred Assessment And Plan - Current Problems (Diagnosis) (1) Atrial fibrillation Current Visit: Yes Status: Acute Plan: Continue anticoagulation, DULCE MARIA cardioversion this am Qualifiers: Atrial fibrillation type: persistent (not longstanding) Qualified Code(s): I48.19 - Other persistent atrial fibrillation; I48.1 - Persistent atrial fibrillation Discharge Plan: Home Plan to discharge in: 24 Hours - Code Status/Comfort Care Code Status Assessed: Yes (full) Physician Review: Patient Assessed, Agree with Above Assessment and Plan
[2023-04-30 17:09] VITALS: BP 161/74
--- NOTE | 2023-04-30 21:24 | P.PN ---
Date of Service: 04/30/23 Vital Signs Temp Pulse Resp BP Pulse Ox 97.6 F 76 18 161/74 H 95 04/30/23 16:00 04/30/23 16:00 04/30/23 16:00 04/30/23 16:00 04/30/23 16:00 Assessment/ Plan: Nephrology Progress Note No Dyspnea No Chest Pain Persistent LE Edema Feeling better No Acute Events Overnight Vital Signs, Medications, Blood Work, and Imaging reviewed in the chart General: Oriented x3, Cooperative HEENT: Atraumatic Neck: Supple Respiratory: Diminished Cardiovascular: Regular rate/rhythm, Edema Gastrointestinal: Soft and benign, Non-distended Musculoskeletal: No clubbing, No contractures Integumentary: No rashes, No cyanosis Neurological: Normal speech Blood work reviewed in the chart. Imagings Data: EXAM DESCRIPTION: RAD - Chest Single View - 04/27/2023 12:22 pm CLINICAL HISTORY: cont cough, pul edema Chest pain. COMPARISON: <Comparisons> FINDINGS: Portable technique limits examination quality. Mild interstitial pulmonary edema seen. The heart is mildly enlarged in size. No displaced fractures. IMPRESSION: Mild CHF. LEFT VENTRICULAR WALL MOTION: MODERATE GLOBAL HYPOKINESIS DOPPLER/COLOR FLOW: SEE BELOW COMMENTS: 1. 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 MODERATE GLOBAL HYPOKINESIS 3. MODERATE AORTIC INSUFFICIENCY AND CALCIFIED AORTIC VALVE WITH POSSIBLE AORTIC STENOSIS Conclusions/Impression: Stage I MACKENZIE in the setting of diuresis CKD II with Proteinuria -No NSAIDs Hyponatremia -Continue furosemide -Fluid restriction Hypokalemia -Discontinue potassium -Replete prn -Continue Spironolactone Daily Systolic CHF LVEF 30-35%, A/C Peripheral Edema -Continue furosemide -Continue Spironolactone DM II with CKD -RISS Anemia in chronic illness Iron deficiency 4.7% -Monitor H&H -Continue IV iron Hospitalist note reviewed
--- NOTE | 2023-05-01 06:51 | P.DS ---
Admission Date: 04/22/23 Discharge Date: 04/30/23 Disposition: ROUTINE DISCHARGE Discharge Condition: GOOD Reason for Admission: atrial fibrillation Consultations: Cardiology - Dr. Castaneda Nephrology - Dr. Rizzo Pulmonology - Dr. Prakash Brief History of Present Illness: 83yo M, PMH: hypertension, hyperlipidemia, diabetes type 2, history of CHF Patient admitted for management of CHF exacerbation. He has been having issues with cough and shortness of breath on lying down and had issues with orthopnea and PND symptoms. he wakes up feeling short of breath. He also reported significant swelling of the lower extremity and was evaluated emergency room by family members. Initial workup was concerning for suspicion for possible pneumonia however on physical exam she was found to have significant lower extremity edema up to the knees depicting worsening CHF symptoms. He was asked to be admitted for inpatient care. He denies chest pain, fever, chills, productive cough. Hospital Course: Problem List: Acute on chronic systolic CHF Atrial fibrillation, new onset Acute bronchitis Iron deficiency Anemia NIDDM2 Hypertension MACKENZIE, resolved Hyponatremia Hyperlipidemia Patient presented with worsening shortness of breath, cough, lower extremity swelling. Troponins were mildly elevated. BNP 5551. CXR with findings consistent with central congestion/ CHF. Echo this hospitalization with EF of 30-35%, mod global hypokinesis, moderate aortic insufficiency and calcified aortic valve with possible aortic stenosis. Cardiology was consulted. Patient's family reported pt had been noncompliant with lasix. Patient was restarted on lasix and had improvement of his symptoms. During his hospitalization, patient was noted to be in a-fib. Patient was started on amio drip and eliquis. He had improvement of his heart rate but remained in a-fib. Patient was taken to OR for DULCE MARIA-guided electrical cardioversion on 04/30 and converted to normal sinus rhythm. Patient was feeling better, heart rate/rhythm improved, lower extremity edema improved and was deemed stable for discharge. He was noted to have significant microcytic anemia with severe iron deficiency. Recommend further discussion with PCP and consideration for further evaluation / colonoscopy. He received multiple doses of IV iron during hospitalization. Medications: Amiodarone 200 mg twice daily Carvedilol 6.25 mg twice daily Eliquis 5 mg twice daily Spironolactone 25 mg daily refill sent for lasix 40mg twice daily over the counter iron stop hydralazine, valsartan - due to blood pressure low-normal in hospital on new medications. check blood pressure daily at home. Once systolic blood pressurej > 140, restart valsartan. 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 MAy need to restart one or both. Follow up: PCP 3-5 days Cardiology 1-2 weeks Vital Signs/Physical Exam: Temp Pulse Resp BP Pulse Ox 97.6 F 76 18 161/74 H 95 04/30/23 16:00 04/30/23 16:00 04/30/23 16:00 04/30/23 16:00 04/30/23 16:00 General: Alert, In no apparent distress, Oriented x3 HEENT: EOMI, Abnormal EOM Neck: Supple, No LAD Respiratory: Clear to auscultation bilaterally, Normal air movement Cardiovascular: Regular rate/rhythm, No murmurs Gastrointestinal: Soft and benign, Non-distended, No tenderness Musculoskeletal: No contractures, No tenderness Neurological: Normal speech Laboratory Data at Discharge: WBC 8.10 thou/uL (4.3-10.9) 04/30/23 02:04 Hgb 9.0 g/dL (13.6-17.9) L 04/30/23 02:04 Hct 29.7 % (39.6-49.0) L 04/30/23 02:04 Plt Count 277 thou/uL (152-406) 04/30/23 02:04 Sodium 135 mEq/L (136-145) L 04/30/23 02:04 Potassium 4.3 mEq/L (3.5-5.1) 04/30/23 02:04 BUN 31 mg/dL (7-18) H 04/30/23 02:04 Creatinine 0.90 mg/dL (0.70-1.30) 04/30/23 02:04 Glucose 125 mg/dL (74-106) H 04/30/23 02:04 Magnesium 2.4 mg/dL (1.6-2.4) 04/25/23 18:26 Total Bilirubin 0.7 mg/dL (0.2-1.0) 04/22/23 15:55 AST 9 U/L (15-37) L 04/22/23 15:55 ALT 29 U/L (16-61) 04/22/23 15:55 Alkaline Phosphatase 77 U/L (45-117) 04/22/23 15:55 Triglycerides 54 mg/dL (<150) 04/23/23 06:35 Cholesterol 91 mg/dL (<200) 04/23/23 06:35 HDL Cholesterol 44 mg/dL (40-60) 04/23/23 06:35 Cholesterol/HDL Ratio 2.07 04/23/23 06:35 Home Medications: Atorvastatin Calcium [Lipitor] 40 mg PO BEDTIME 06/24/17 Clopidogrel Bisulfate [Plavix] 75 mg PO DAILY 06/24/17 Levothyroxine Sodium 50 mcg PO [id number] 05/01/21 Metformin HCl [Metformin HCl ER] 750 mg PO BIDWM 05/01/21 Amiodarone HCl [Cordarone*] 200 mg PO BID 30 Days #60 tab 04/30/23 Apixaban [Eliquis] 5 mg PO BID 30 Days #60 tab 04/30/23 Ferrous Sulfate [Ferrous Sulfate*] 325 mg PO DAILY 60 Days #60 tab 04/30/23 Furosemide [Lasix*] 40 mg PO BIDL 30 Days #60 tab 04/30/23 Spironolactone [Aldactone*] 25 mg PO DAILY 30 Days #30 tab 04/30/23 carvediloL [Coreg*] 6.25 mg PO BID 30 Days #60 tab 04/30/23 New Medications: Spironolactone [Aldactone*] 25 mg PO DAILY 30 Days #30 tab Amiodarone HCl [Cordarone*] 200 mg PO BID 30 Days #60 tab carvediloL [Coreg*] 6.25 mg PO BID 30 Days #60 tab Apixaban [Eliquis] 5 mg PO BID 30 Days #60 tab Ferrous Sulfate [Ferrous Sulfate*] 325 mg PO DAILY 60 Days #60 tab Furosemide [Lasix*] 40 mg PO BIDL 30 Days #60 tab Physician Discharge Instructions: Patient presented with worsening shortness of breath, cough, lower extremity swelling. Troponins were mildly elevated. BNP 5551. CXR with findings consistent with central congestion/ CHF. Echo this hospitalization with EF of 30-35%, mod global hypokinesis, moderate aortic insufficiency and calcified aortic valve with possible aortic stenosis. Cardiology was consulted. Patient's family reported pt had been noncompliant with lasix. Patient was restarted on lasix and had improvement of his symptoms. During his hospitalization, patient was noted to be in a-fib. Patient was started on amio drip and eliquis. He had improvement of his heart rate but remained in a-fib. Patient was taken to OR for DULCE MARIA-guided electrical cardioversion on 04/30 and converted to normal sinus rhythm. Patient was feeling better, heart rate/rhythm improved, lower extremity edema improved and was deemed stable for discharge. He was noted to have significant microcytic anemia with severe iron deficiency. Recommend further discussion with PCP and consideration for further evaluation / colonoscopy. He received multiple doses of IV iron during hospitalization. Medications: Amiodarone 200 mg twice daily Carvedilol 6.25 mg twice daily Eliquis 5 mg twice daily Spironolactone 25 mg daily refill sent for lasix 40mg twice daily over the counter iron stop hydralazine, valsartan - due to blood pressure low-normal in hospital on new medications. check blood pressure daily at home. Once systolic blood pressurej > 140, restart valsartan. 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 MAy need to restart one or both. Follow up: PCP 3-5 days Cardiology 1-2 weeks Followup: NONE,NONE [Primary Care Provider] - Time spent managing pt's care (in minutes): 45
== END 2023-04-30 18:10 | disposition home or self-care (01) | DRG 291 ==
LOC: ER 15:28 → ERHOLD 21:16 → 2ND 21:37
PROVIDERS: ADMIT Internal Medicine Nephrology; ATTEND Hospitalist
PROC: B24BZZ4 Ultrasonography of Heart with Aorta, Transesophageal (ICD-10-PCS; principal; 2023-04-30)
PROC: 5A2204Z Restoration of Cardiac Rhythm, Single (ICD-10-PCS; 2023-04-30)
DX: I13.0 Hypertensive heart and chronic kidney disease with heart failure and stage 1 through stage 4 chronic kidney disease, or unspecified chronic kidney disease (principal); I50.23 Acute on chronic systolic (congestive) heart failure; E87.1 Hypo-osmolality and hyponatremia; I24.89 Other forms of acute ischemic heart disease; N17.9 Acute kidney failure, unspecified; I48.19 Other persistent atrial fibrillation; N18.2 Chronic kidney disease, stage 2 (mild); E11.22 Type 2 diabetes mellitus with diabetic chronic kidney disease; D63.1 Anemia in chronic kidney disease; D50.9 Iron deficiency anemia, unspecified; J20.9 Acute bronchitis, unspecified; E78.5 Hyperlipidemia, unspecified; E87.6 Hypokalemia; I25.10 Atherosclerotic heart disease of native coronary artery without angina pectoris; T50.2X5A Adverse effect of carbonic-anhydrase inhibitors, benzothiadiazides and other diuretics, initial encounter; T50.1X6A Underdosing of loop [high-ceiling] diuretics, initial encounter; Z95.5 Presence of coronary angioplasty implant and graft; Z79.82 Long term (current) use of aspirin; Z79.01 Long term (current) use of anticoagulants; Z90.49 Acquired absence of other specified parts of digestive tract; Z79.02 Long term (current) use of antithrombotics/antiplatelets; Z79.84 Long term (current) use of oral hypoglycemic drugs; Z86.73 Personal history of transient ischemic attack (TIA), and cerebral infarction without residual deficits; Z79.890 Hormone replacement therapy; Z79.899 Other long term (current) drug therapy; Z91.138 Patient's unintentional underdosing of medication regimen for other reason; Z91.148 Patient's other noncompliance with medication regimen for other reason
CPT/HCPCS: 36415; 71045; 71046; 80048; 80061; 80076; 81001; 82728; 82947; 83540; 83735; 83880; 84466; 84484; 85025; 87040; 92960; 93005; 93306; 93312; 94640; 96374; 99285; J0282; J1100; J1650; J1815; J1940; J2001; J2704; J2916; J3535; J7040; J7050; J7060; J7512; J7613; J7644; P9047

== ENCOUNTER 2024-01-06 11:30 | Day surgery (SDC) | payer OTHER ==
--- NOTE | 2024-01-03 13:15 | RAD REPORT ---
EXAM DESCRIPTION: RAD - Chest Pa And Lat (2 Views) - 01/03/2024 1:06 pm CLINICAL HISTORY: pre op pending heart cath Chest pain. COMPARISON: <Comparisons> FINDINGS: The lungs are clear. The heart is moderately enlarged in size. No displaced fractures. IMPRESSION: Moderate cardiomegaly. The USPSTF recommends annual screening for lung cancer with low-dose CT (LDCT) in adults aged 50 to 8 0 years who have a 20 pack-year smoking history and currently smoke or have quit within the past 15 y ears.
[2024-01-03 13:20] LABS: Absolute Eosinophils 0.2 K/uL (0-0.5); Absolute Lymphocytes (CBC) 0.7 K/uL (0.7-4.9); Absolute Monocytes 0.8 K/uL (0.1-1.3); Absolute Neutrophil 4.6 K/uL (1.8-8.0); Basophils % 0.6 % (0-1.3); Eosinophils % 3.5 % (0-4.4); Hematocrit 35.3 % (39.6-49.0); Hemoglobin 11.5 g/dL (13.6-17.9); Lymphocytes % 11.5 % (15.3-44.8); MCH 30.9 pg (27.0-35.0); MCHC 32.5 g/dL (32.0-36.0); MPV 8.8 fL (7.6-11.3); Monocytes % 12.5 % (3.3-12.3); Neutrophils % 71.9 % (41.7-73.7); Platelets 209 thou/uL (152-406); RBC Red Blood Cell Count 3.71 M/uL (4.33-5.43); Red Cell Distribution Width 13.8 % (12.1-15.2)
[2024-01-03 13:31] LABS: Anion Gap 10.2 mEq/L (5.0-15.0); PT Prothrombin Time 14.9 SECONDS (9.4-12.5); PTT, Activated Partial Thromb 31.1 SECONDS (24.3-36.9); Potassium 4.2 mEq/L (3.5-5.1); Protime INR 1.34
[2024-01-06] MEDS ORDERED: NA CHLORIDE 0.9% 500 ML ONE (13:02)
[2024-01-06] MEDS ORDERED: HEPA 1000U/500MLS 2,000 UNIT/1,000 ML BAG IV ONE (14:02)
[2024-01-06] MEDS ORDERED: ATROPINE SULF 1 MG/10 ML SYR IV ONE (14:02)
[2024-01-06] MEDS ORDERED: LIDOCAINE 1% 20 ML MDV ONE (14:02)
[2024-01-06] MEDS ORDERED: MIDAZOLAM HCL 2 MG/2 ML INJ ONE ×2 (14:02→17:02)
[2024-01-06] MEDS ORDERED: VERAPAMIL HCL 10 MG/4 ML VIAL IV ONE (14:02)
[2024-01-06] MEDS ORDERED: FENTANYL CITR 100 MCG/2 ML ONE (14:02)
[2024-01-06] MEDS ORDERED: HEPARIN 5000 UNIT/ML 1 ML VIAL ONE (14:03)
[2024-01-06] MEDS ORDERED: ASPIRIN 325 MG TAB ONE (14:03)
[2024-01-06] MEDS ORDERED: CLOPIDOGREL 75 MG TABLET ONE (14:03)
[2024-01-06] MEDS ORDERED: HEPARIN 10,000 UNIT/10 ML VIAL IV ONE (14:03)
[2024-01-06] MEDS ORDERED: TICAGRELOR 90 MG TABLET PO ONE (14:03)
[2024-01-06 18:49] VITALS: O2SAT 100
[2024-01-06 19:19] VITALS: BP 173/59
--- NOTE | 2024-01-06 20:08 | OP ---
Date of Procedure: 01/06/2024 Surgeon: PANCHITO POSADA Procedures Performed: 1.Selective coronary angiogram. 2.Left heart catheterization. 3.Right heart catheterization. Indications: 1.Severe aortic valve stenosis. 2.Systolic heart failure. 3.Chest pain. Access: 1.Right common femoral artery 6-St Helenian closed with 6-St Helenian Angio-Seal. 2.Right common femoral vein 7-St Helenian closed with manual pressure. Complications: None. Bleeding: Less than 50 mL. Anesthesia: Total sedation time was 1 hour, used fentanyl and Versed. Description Of Procedure: After risks, benefits, and alternatives were explained, patient agreed to the procedure and signed informed consent. The patient was brought into cardiac catheterization labo [facility], prepped and draped in the usual sterile fashion. Then, I accessed the right common femoral a rtery using micropuncture kit, ultrasound guidance, and fluoroscopy, placed 6-St Helenian Roosevelt sheath and then I accessed right femoral vein using micropuncture kit and ultrasound guidance and placed 7-F rench Roosevelt sheath and then took a 7-St Helenian balloon-tipped [place] catheter through the venous access into the right atrium, right ventricle, pulmonary artery, and wedge. Obtained waveform and pressure s and obtained a thermodilutional cardiac output and then I removed the [place] and then took a 6-St Helenian JL4 catheter into the aortic root, could not engage the left main, so I exchanged for 6-St Helenian EBU3. 5 guide, engaged the left main, took standard views and then exchanged for 6-St Helenian JR4 catheter, eng aged the RCA, took standard views and then across the aortic valve using AL1 catheter and J-wire and then sent a Justice catheter into the LV, measured the simultaneous pressure of the LV and the aorta and obtained a gradient and valve area and pullback did not record internal gradient. Then I remove d the catheter and the sheath was removed. 6-St Helenian Angio-Seal was used for closure with good hemost asis and the venous sheath was removed and manual pressure was used for closure with good hemostasis. Findings: 1.Coronary angiogram: a.Left main; large and normal. b.LAD; proximal segment is with mild 20% to 30% stenosis, but the mid segment has diffuse 80% stenos is, heavily calcified. Distally, it becomes big artery with no significant disease. Diagonal branch has mid 60% stenosis. Diagonal 2 has diffuse proximal 60% stenosis. c.Left circumflex; moderate size, OM branch is very small, but the left circumflex itself after the first OM branch takeoff becomes severely diseased 80% to 90%, is heavily calcified as well. d.RCA; it is very large and dominant, mid 80% stenosis and distally it is 70% stenosis. 2.Right heart cath numbers: RA pressure is 4. RV pressure is 37/1 with mean of 9. The PA pressure is 41/12, mean of 19. Wedge pressure was 7 and his LVEDP was 16 mmHg. Aortic valve area was 1.9 sq cm and the mean gradient across the aortic valve was 11 mmHg and cardiac output was 4.8 L/minute. Conclusion: 1.Moderate aortic valve stenosis. 2.Severe multivessel coronary artery disease, heavily calcified. Recommendations: This patient is not a candidate for bypass. We will plan for staged PCI, first we will do the LAD. We will check with possible CSI atherectomy and PCI and at the later time, we will plan for intervention on the left circumflex and RCA, which they both can be done at the same time. Discussed the findings in detail with family and they agreed to the plan. He will see me in the next 2-3 weeks and we will arrange for intervention to be done at [facility] [place]. /VIDYA Voice ID: [id number] Report ID: [id number]
== END 2024-01-06 19:30 | disposition home or self-care (01) ==
LOC: CCL 11:30
PROVIDERS: ATTEND Internal Medicine
DX: I25.10 Atherosclerotic heart disease of native coronary artery without angina pectoris (principal); I35.0 Nonrheumatic aortic (valve) stenosis; I11.0 Hypertensive heart disease with heart failure; I50.20 Unspecified systolic (congestive) heart failure; I48.91 Unspecified atrial fibrillation; E11.9 Type 2 diabetes mellitus without complications; Z79.01 Long term (current) use of anticoagulants; Z79.84 Long term (current) use of oral hypoglycemic drugs; Z79.899 Other long term (current) drug therapy
CPT/HCPCS: 36415; 71046; 76937; 80048; 82947; 85025; 85610; 85730; 93456; 93460; 99152; 99153; C1760; C1893; J0461; J1644; J2001; J2250; J3010; J7040; Q9967

== ENCOUNTER 2024-02-18 12:05 | Day surgery (SDC) | payer OTHER ==
[2024-02-17 11:57] LABS: Absolute Eosinophils 0.5 K/uL (0-0.5); Absolute Lymphocytes (CBC) 0.8 K/uL (0.7-4.9); Absolute Monocytes 0.6 K/uL (0.1-1.3); Absolute Neutrophil 4.6 K/uL (1.8-8.0); Basophils % 0.6 % (0-1.3); Eosinophils % 7.1 % (0-4.4); Hematocrit 33.8 % (39.6-49.0); Hemoglobin 11.2 g/dL (13.6-17.9); MCH 31.6 pg (27.0-35.0); MCHC 33.1 g/dL (32.0-36.0); MCV 95.3 fL (80-100); MPV 8.3 fL (7.6-11.3); Monocytes % 9.7 % (3.3-12.3); Neutrophils % 70.6 % (41.7-73.7); Platelets 225 thou/uL (152-406); RBC Red Blood Cell Count 3.55 M/uL (4.33-5.43)
[2024-02-17 12:03] LABS: PT Prothrombin Time 12.2 SECONDS (9.4-12.5); PTT, Activated Partial Thromb 28.4 SECONDS (24.3-36.9); Protime INR 1.09
[2024-02-17 12:14] LABS: Anion Gap 8.1 mEq/L (5.0-15.0); Potassium 4.1 mEq/L (3.5-5.1)
[2024-02-18] MEDS ORDERED: NA CHLORIDE 0.9% 500 ML ONE (12:09)
[2024-02-18] MEDS ORDERED: HEPARIN 10,000 UNIT/10 ML VIAL IV ONE (12:32)
[2024-02-18] MEDS ORDERED: HEPA 1000U/500MLS 2,000 UNIT/1,000 ML BAG IV ONE (12:32)
[2024-02-18] MEDS ORDERED: FENTANYL CITR 100 MCG/2 ML ONE (12:33)
[2024-02-18] MEDS ORDERED: MIDAZOLAM HCL 2 MG/2 ML INJ ONE (12:33)
[2024-02-18] MEDS ORDERED: VERAPAMIL HCL 10 MG/4 ML VIAL IV ONE (12:33)
[2024-02-18] MEDS ORDERED: LIDOCAINE 1% 20 ML MDV ONE (12:33)
[2024-02-18] MEDS ORDERED: ASPIRIN 325 MG TAB ONE (12:34)
[2024-02-18] MEDS ORDERED: HEPARIN 5000 UNIT/ML 1 ML VIAL ONE (12:34)
[2024-02-18] MEDS ORDERED: ATROPINE SULF 1 MG/10 ML SYR IV ONE (12:35)
[2024-02-18] MEDS ORDERED: CLOPIDOGREL 75 MG TABLET ONE (13:33)
[2024-02-18 17:29] VITALS: BP 183/68; O2SAT 97
--- NOTE | 2024-02-19 01:18 | OP ---
Date of Procedure: 02/18/2024 Surgeon: PANCHITO POSADA Procedures Performed: 1.Selective coronary angiogram. 2.Percutaneous coronary intervention of severe mid left circumflex stenosis using 2.25 x 32 mm Syner gy drug-eluting stent. 3.Balloon angioplasty of mid LAD and tried to deliver stent and could not again, but WILLA-3 flow and no dissection at the end. Indication: Systolic heart failure with low ejection fraction and chest pain and known coronary abi ry disease. Access: Right common femoral artery, 6-Egyptian, closed with 6-Egyptian Angio-Seal. Complications: None. Bleedin mL. Total Sedation Time: One hour. Description Of Procedure: After risks, benefits, and alternatives were explained, the patient agreed to procedure and signed informed consent. The patient was brought into cardiac catheterization labo ratory, prepped and draped in usual sterile fashion. Then, I accessed the right common femoral arter y using micropuncture kit, ultrasound guidance, and fluoroscopy. We placed 6-Egyptian Anderson sheath and took a 6-Egyptian EBU 4 guide into the aortic root, engaged left main, took standard views, and the n gave systemic heparin to assure ACT level above 250 and then took a Runthrough wire into the left c ircumflex, placed it distally, and balloon angioplasty of the mid left circumflex using Compliant and Noncompliant balloons, with excellent expansion and then, I was able to deliver a 2.25 x 32 mm Syner gy drug-eluting stent to cover the long stenosis, excellent results at the end, and WILLA-3 flow and 0 % residual stenosis. Then, I took a Runthrough wire into the LAD and placed it distally and tried to deliver the stent, could not, and did balloon angioplasty at the area where the stenosis was, with a n NC balloon and still could not deliver this stent due to heavily calcified vessel, but there was TI TN-3 flow and there was no dissection, excellent, and no symptoms. At this point, I decided to leave it alone and monitor clinically. Wire was removed. Final angiogram was satisfactory. I then remov ed the catheter and the sheath, and 6-Egyptian Angio-Seal was used for closure with good hemostasis. Findings: 1.Widely patent LAD. 2.Left main normal. 3.Left circumflex, mid 80% status post successful PCI. 4.RCA known to have mid 80% stenosis. We will plan for staged PCI. Conclusion: 1.Successful PCI of the mid left circumflex, and the LAD is widely patent. 2.Known severe RCA stenosis. Plan for staged PCI in 1 to 2 months. SR/MODL Voice ID: [id number] Report ID: [id number]
== END 2024-02-18 16:45 | disposition home or self-care (01) ==
LOC: CCL 12:05
PROVIDERS: ATTEND Internal Medicine
DX: I25.110 Atherosclerotic heart disease of native coronary artery with unstable angina pectoris (principal); I70.213 Atherosclerosis of native arteries of extremities with intermittent claudication, bilateral legs; I65.23 Occlusion and stenosis of bilateral carotid arteries; I11.0 Hypertensive heart disease with heart failure; I50.22 Chronic systolic (congestive) heart failure; I35.0 Nonrheumatic aortic (valve) stenosis; E78.5 Hyperlipidemia, unspecified; Z79.01 Long term (current) use of anticoagulants; Z79.02 Long term (current) use of antithrombotics/antiplatelets; Z79.899 Other long term (current) drug therapy
CPT/HCPCS: 85025; 80048; 36415; 85610; 82947; 85347 ×2; 85730; 92920; 93454; 76937; C1893; C1760; Q9967; G0269; C1725; C9600; J2001; J2250; J3010; J7040; 99152; 99153; J0461; J1644

== ENCOUNTER 2024-03-27 10:42 | Day surgery (SDC) | payer OTHER ==
[2024-03-25 14:51] LABS: Absolute Eosinophils 0.4 K/uL (0-0.5); Absolute Lymphocytes (CBC) 0.8 K/uL (0.7-4.9); Absolute Monocytes 0.7 K/uL (0.1-1.3); Basophils % 0.7 % (0-1.3); Eosinophils % 6.6 % (0-4.4); Hematocrit 33.2 % (39.6-49.0); Lymphocytes % 13.3 % (15.3-44.8); MCHC 33.2 g/dL (32.0-36.0); MCV 96.4 fL (80-100); MPV 8.4 fL (7.6-11.3); Monocytes % 11.6 % (3.3-12.3); Neutrophils % 67.8 % (41.7-73.7); Platelets 229 thou/uL (152-406); RBC Red Blood Cell Count 3.44 M/uL (4.33-5.43); Red Cell Distribution Width 14.4 % (12.1-15.2)
[2024-03-25 15:00] LABS: PT Prothrombin Time 13.7 SECONDS (9.4-12.5); PTT, Activated Partial Thromb 32.7 SECONDS (24.3-36.9); Protime INR 1.23
[2024-03-25 15:11] LABS: Anion Gap 8.7 mEq/L (5.0-15.0); Potassium 4.7 mEq/L (3.5-5.1)
--- NOTE | 2024-03-26 11:09 | EKG ---
Test Date: 2024-03-25 Test Time: 14:30:00 Post Manager: DENA MEASUREMENT RESULTS: Intervals: Rate: 54 ID: [id number] QRSD: 150 QT: 508 QTc: 481 [place]: P: 25 ID: [id number] QRS: -24 T: 94 INTERPRETIVE STATEMENTS: Sinus bradycardia with 1st degree AV block Left bundle branch block Abnormal ECG Compared to ECG 04/30/2023 12:05:00 Sinus rhythm no longer present Atrial premature complex(es) no longer present Fusion complex(es) no longer present Left-axis deviation no longer present Electronically Signed On 03-26-24 11:07:39 CDT by Regino Gutierrez
[2024-03-27] MEDS: NA CHLORIDE 0.9% 500 ML ONE (10:47)
[2024-03-27] MEDS ORDERED: MIDAZOLAM HCL 2 MG/2 ML INJ ONE (11:27)
[2024-03-27] MEDS ORDERED: ATROPINE SULF 1 MG/10 ML SYR IV ONE (11:27)
[2024-03-27] MEDS ORDERED: LIDOCAINE 1% 20 ML MDV ONE (11:27)
[2024-03-27] MEDS ORDERED: VERAPAMIL HCL 10 MG/4 ML VIAL IV ONE (11:27)
[2024-03-27] MEDS ORDERED: HEPA 1000U/500MLS 2,000 UNIT/1,000 ML BAG IV ONE (11:27)
[2024-03-27] MEDS ORDERED: HEPARIN 10,000 UNIT/10 ML VIAL IV ONE (11:27)
[2024-03-27] MEDS ORDERED: ASPIRIN 325 MG TAB ONE (11:28)
[2024-03-27] MEDS ORDERED: TICAGRELOR 90 MG TABLET PO ONE (11:28)
[2024-03-27] MEDS ORDERED: CLOPIDOGREL 75 MG TABLET ONE (11:28)
[2024-03-27] MEDS ORDERED: FENTANYL CITR 100 MCG/2 ML ONE (11:28)
[2024-03-27] MEDS ORDERED: HEPARIN 5000 UNIT/ML 1 ML VIAL ONE (11:28)
[2024-03-27] MEDS: HYDRALAZINE HCL 20 MG/ML VIAL IV ONE (15:48)
[2024-03-27] MEDS ORDERED: HYDRALAZINE HCL 20 MG/ML VIAL ONE (15:51)
[2024-03-27 16:59] VITALS: O2SAT 99
[2024-03-27 17:30] VITALS: BP 142/61
--- NOTE | 2024-03-28 03:06 | OP ---
Date of Procedure: 03/27/2024 Surgeon: PANCHITO POSADA Procedure Performed: 1.Selective coronary angiogram. 2.Left heart catheterization. 3.Shockwave lithotripsy of severe proximal to mid RCA stenosis, used 3.5 x 10 mm shockwave balloon. 4.PCI of severe proximal to mid RCA stenosis, used 4.0 x 60 mm Synergy drug-eluting stent. Indication: Known low ejection fraction will multivessel disease. LAD and left circumflex have been revascularized, and he was brought in today to do PCI of the RCA. Access: 1.Right radial artery 6-Lebanese closed with TR band. 2.Right common femoral artery 6-Lebanese, closed with Mynx closure device. Complications: None. Bleeding: Less than 50 mL. Anesthesia: Total sedation time was 1 hour. Used fentanyl, Versed. Description Of Procedure: After risks, benefits, and alternatives were explained, the patient was br ought into cardiac catheterization laboratory. Prepped and draped in usual sterile fashion. Then, I accessed right radial artery using pediatric micropuncture kit, placed 6-Lebanese slender sheath and w as able to get to the aortic root; however, there was significant radial artery spasm, so I had to ab ort this access. I removed the catheter and the wire and then I accessed right common femoral artery using micropuncture kit, ultrasound guidance, and fluoroscopy, placed 6-Lebanese Guys sheath and t ook a 6-Lebanese JL4 catheter into the aortic root, engaged the left main, took standard views and then exchanged for a 6-Lebanese JR4 guide, engaged the RCA, took standard views, and then gave systemic hep ioana to assure ACT level above 250. Patient is already on dual antiplatelet therapy, so took run-thr ough wire into the left circumflex, placed it distally, and the proximal to mid RCA stenosis was toño andrew with shockwave lithotripsy using 3.5 x 10 mm shockwave balloon, followed by placement of 4.0 x 60 mm Synergy drug-eluting stent excellent expansion, 0% residual stenosis. Wire was removed final ang iogram was satisfactory. Then, the guide was removed. The groin sheath was removed. A Mynx closure device was used for closure with good hemostasis. The radial sheath was removed and a TR band was u sed for closure with good hemostasis. Findings: 1.Left main is normal. 2.LAD: Widely patent stent. Proximal to mid distal to the stent, there is 40% focal stenosis and d istally there is also 50% focal stenosis of the LAD. 3.Left circumflex: Widely patent and with patent OM stent. 4.RCA: It is a dominant circulation with proximal to mid 80% stenosis, status post shockwave lithot ripsy followed by PCI as above. Distally, there is 30% stenosis and the PLB and PDA have luminal irr egularities. Conclusion: Severe proximal to mid RCA stenosis, status post shockwave lithotripsy and the PCI as ab ove. Plan: Aspirin, Plavix, high-dose statin. Follow up with me in the office in 1-2 weeks post discharg eTuan SEGUNDO/VIDYA Voice ID: [id number] Report ID: [id number]
== END 2024-03-27 17:25 | disposition home or self-care (01) ==
LOC: CCL 10:42
PROVIDERS: ATTEND Internal Medicine
PROC: 02F03ZZ Fragmentation in Coronary Artery, One Artery, Percutaneous Approach (ICD-10-PCS; principal; 2024-03-27)
DX: I25.110 Atherosclerotic heart disease of native coronary artery with unstable angina pectoris (principal); I11.0 Hypertensive heart disease with heart failure; I50.22 Chronic systolic (congestive) heart failure; I48.91 Unspecified atrial fibrillation; I65.29 Occlusion and stenosis of unspecified carotid artery; E78.5 Hyperlipidemia, unspecified; F03.90 Unspecified dementia, unspecified severity, without behavioral disturbance, psychotic disturbance, mood disturbance, and anxiety; Z95.5 Presence of coronary angioplasty implant and graft; Z79.01 Long term (current) use of anticoagulants; Z79.02 Long term (current) use of antithrombotics/antiplatelets; Z79.899 Other long term (current) drug therapy
CPT/HCPCS: 93005; 85025; 80048; 36415; 85610; 82947; 85347 ×2; 85730; 93454; 76937; 92972; C1893; Q9967; C1725; C9600; J1644; J0360; J2003; J2250; J3010; J7040; 99152; 99153; J0461